=== PATIENT | female | born 1980 | race African-American/Black ===

== ENCOUNTER 2016-10-30 10:17 | Inpatient (IN) ==
[2016-10-30] MEDS ORDERED: METOPROLOL TARTRATE 5 MG/5 ML VIAL IV ONE (10:38)
--- NOTE | 2016-10-30 10:40 | Emergency Department Note ---
Arrival - Arrival Chief Complaint: Chest Pain Stated Complaint: chest pain ED Nursing Triage Note: Midsternal chest pain onset x 3 days with worsening this am - SOB with the pain Mode of Arrival: Ambulatory Limitations: No Limitations Source: Patient, RN Notes Reviewed - History of Present Illness HPI Narrative: Patient is a 35-year-old white female with a known history of lupus. The patient presents today with a 3 day history of chest pain substernal tightness radiating to the left shoulder associated with nausea, shortness of breath, and diaphoresis. Pain is worse with exertion. Patient has had some heart palpitations. She does not smoke. Patient is presently on prednisone, sildenafil, aspirin. She has a history of hypertension. There is no history of diabetes mellitus. Onset (ago): day(s) (3) Consistency: intermittent Severity: moderate Quality: other Date of Last Menstrual Period: hyster Allergies/Adverse Reactions: Allergies Allergy/AdvReac Type Severity Reaction Status Date / Time FABIEN Inhibitors Allergy Severe Swelling Verified 08/12/16 12:14 of Lip/Tongue/Throat Home Medications: Home Medications Medication Instructions Recorded Confirmed Type cloNIDine TAB [Catapres Tab] 0.2 mg PO TID 07/09/14 10/30/16 History Hydroxychloroquine Sulfate 200 mg PO BID 08/12/16 10/30/16 History Losartan Potassium [Cozaar] 100 mg PO DAILY 08/12/16 10/30/16 History amLODIPine [Norvasc] 10 mg PO DAILY 08/12/16 10/30/16 History predniSONE TAB [PredniSONE] 20 mg PO DAILY #30 tablet 08/12/16 10/30/16 Rx Aspirin EC Tab 81 mg PO BID 10/30/16 10/30/16 History Sildenafil Citrate [Viagra] 50 mg PO BID 10/30/16 10/30/16 History Warfarin Sodium 5 mg PO SUTUTHSA 10/30/16 10/30/16 History Warfarin Sodium 7.5 mg PO MOWEFR 10/30/16 10/30/16 History hydroCHLOROthiazide 25 mg PO DAILY 10/30/16 10/30/16 History [Hydrochlorothiazide] Review of System - Review of System 12 point system: reviewed and no additional remarkable complaints except as stated - Review of System Constitutional: Absent: chills, fever Cardiovascular: Present: chest pain, palpitations, dyspnea on exertion Gastrointestinal: Present: nausea Medical,Surgical,& Family Hx - Medical History Cardio: History of: CHF, Hypertension No history of: Valvular Heart Disease Rheumatology: History of;: Systemic Lupus Erythematosus Respiratory: History of: Bronchitis Renal: History of: Renal Failure Genitourinary: History of: Problems (interstitial cystitis) Other: History of: Miscellaneous Medical Problems (lupus; Raynauds) - Surgical History Cardiac Surgeries: Patient Denies: Cardiac Catheterization Neurologic Surgeries: Patient denies: Neurologic Surgery Abdominal Surgeries: Patient denies: Abdominal Surgery Reproductive Surgeries: Surgical HX of;: Hysterectomy - Family History Family History: Reports;: Family Diabetes, Family Heart Disease, Family Hypertension - Social History Smoking Status: Never smoker Frequency of Alcohol Use: None Type of Drug Use: None Exam Vital Signs: Vital Signs Temperature 99.8 F H 10/30/16 10:21 Pulse Rate 132 H 10/30/16 10:21 Respiratory Rate 22 10/30/16 10:21 Blood Pressure 150/103 10/30/16 10:21 O2 Sat by Pulse Oximetry 100 10/30/16 10:21 GENERAL: This is a well-nourished well-developed white female in no apparent distress. VITAL SIGNS: Reviewed HEENT: Head is atraumatic and normocephalic. Pupils are equal round react to light. Extraocular movements are intact. Oropharynx is benign with moist mucous membranes. NECK: Neck is soft and supple without tenderness. There are no masses. There is no lymphadenopathy. LUNGS: Lungs are clear to auscultation. Chest rises symmetrically. There is no chest wall tenderness. CV: Heart is rapid rate regular rhythm without murmurs rubs or gallops. ABDOMEN: Abdomen is soft, nontender to palpation. There are no abdominal abnormal masses palpated. There is no organomegaly. Bowel sounds are present and active. SKIN: Skin is warm and dry. No rash. EXTREMITIES: Patient has full range of motion without tenderness. There is no pedal edema. NEUROLOGIC: Awake alert and oriented 4. Cranial nerves II through XII are grossly intact. Motor is 5 over 5 in all extremities bilaterally. Course - Consultations Consultation #1: Discussed with hospitalist. Patient will be admitted to their service. Time: 12:46 Results - Labs CBC & BMP: 10/30/16 10:39 10/30/16 10:39 Lab Results: I have reviewed the patients labs Labs: Laboratory Tests 10/30/16 10/30/16 10:39 10:39 INR 2.5 Troponin I < 0.015 - EKG EKG results: interpreted by ERMD - Impressions EKG: Sinus tachycardia with a rate of 134, nonspecific ST-T wave changes, normal axis. - Diagnostic Findings Procedure: Chest x-ray: image reviewed by me (Left pleural effusion), CT - chest : report reviewed by me, image reviewed by me (No evidence of pulmonary embolus. Bibasilar atelectasis.) Disposition Clinical Impression: Chest pain, Tachycardia, SLE (systemic lupus erythematosus), Essential hypertension, Chronic anticoagulation Case discussed with: patient Disposition: Still a Patient Condition: Guarded Time of Disposition: 12:44
[2016-10-30] MEDS ORDERED: ONDANSETRON 4 MG/2 ML VIAL IV PRN ×2 (10:42→14:56)
[2016-10-30] MEDS ORDERED: ASPIRIN 325 MG TABLET PO STA (10:42)
[2016-10-30] MEDS ORDERED: MORPHINE 2 MG/1 ML SYRINGE IV PRN ×2 (10:42→14:56)
[2016-10-30] MEDS ORDERED: ENOXAPARIN 100 MG/ML SYRINGE SUBCUT STA (10:42)
[2016-10-30] MEDS: METOPROLOL TARTRATE 5 MG/5 ML VIAL IV SCH ×2 (10:43→11:10)
--- NOTE | 2016-10-30 10:46 | EKG Report ---
Stationary ECG Study [facility] ER Test Date: 10/30/2016 10:23:28 AM Pat Name: LEATHA BARR Department: Room: Gender: F Psychopaedic Nurse: Anita Batista : 1980 Requested by: Eduardo Quintanilla Order Number: [id number] Reading MD: NATALIE MELISSA Intervals [place] Rate: 134 P: 37 NE: 143 QRS: 31 QRSD: 84 T: 65 QT: 367 QTc: 446 Interpretive Statements SINUS TACHYCARDIA Electronically Signed On 10-30-16 12:37:31 CDT by NATALIE MELISSA [email or web address]
[2016-10-30 10:53] LABS: Basophils % 0.1 % (0.0-0.8); Eosinophils % 0.1 % (0.00-10.9); Hematocrit 39.5 VOL% (35.7-47.0); Hemoglobin 12.7 GM/DL (12.0-16.0); Immature Granulocytes % 0.4 %; Immature Granulocytes Absolute 0.03 #; Lymphocytes % 14.2 % (21.3-54.2); Mean Corpuscular HGB Conc 32.2 GM/DL (32-36); Mean Corpuscular Hemoglobin 26 PG (27-34); Mean Corpuscular Volume 81.1 FL (87-102); Mean Platelet Volume 11.3 FL (9.6-12.0); Monocytes # 0.5 10*3/uL (0.11-0.8); Monocytes % 7.3 % (1.7-12.7); Neutrophils # 5.5 10*3/uL (1.4-7.4); Neutrophils % 77.9 % (38.7-73.9); Platelet Count 223 T/CUMM (130-400); Red Blood Count 4.87 MC/CUMM (3.8-5.5); Red Cell Distribution Width 14.4 % (9.3-17.3); White Blood Count 7.1 T/CUMM (4-12)
[2016-10-30] MEDS ORDERED: methylPREDNISolone SOD SUC 125 MG/2 ML VIAL IV STA (10:55)
--- NOTE | 2016-10-30 11:04 | XRay Report ---
XR chest 1V portable Indication: Chest pain Comparison: 12 Aug 2016 Findings: The heart and mediastinum are stable in size and configuration. The pulmonary vascularity is normal in caliber. No lung infiltrates, effusions, pneumothorax or other abnormality is demonstrated. Impression: No acute cardiopulmonary disease. PROCEDURE INTERPRETED AT [facility] DEPARTMENT OF RADIOLOGY Final Report Signed by: Dr. Mitesh Hawkins
[2016-10-30 11:05] LABS: INR 2.5; PT Patient Result 28.6 SECS; Partial Thromboplastin Time 40.6 SECS (0-40)
[2016-10-30] MEDS ORDERED: methylPREDNISolone SOD SUC 125 MG/2 ML VIAL ONE (11:08)
[2016-10-30] MEDS ORDERED: ONDANSETRON 4 MG/2 ML VIAL ONE (11:08)
[2016-10-30] MEDS ORDERED: MORPHINE 2 MG/1 ML SYRINGE ONE (11:08)
[2016-10-30] MEDS ORDERED: ENOXAPARIN 80 MG/0.8 ML SYRINGE SUBCUT ONE (11:08)
[2016-10-30 11:30] LABS: Alanine Aminotransferase 14 U/L (13-56); Albumin 2.4 G/DL (3.4-5.0); Alkaline Phosphatase 42 U/L (45-117); Aspartate Amino Transferase 18 U/L (0-37); Bilirubin,Total < 0.39 MG/DL (0.2-1.0); Blood Urea Nitrogen 20 MG/DL (7-18); Calcium 8.7 MG/DL (8.5-10.1); Glucose 88 MG/DL (74-106); Osmolality,Calculated 287.8 MOS/KG (273-304); Potassium 3.4 MMOL/L (3.5-5.1); Sodium 144 MMOL/L (136-145); Total Protein 6.7 G/DL (6.4-8.3)
--- NOTE | 2016-10-30 12:29 | CT Report ---
CT chest PE study Indication: Shortness of breath. Chest pain. Comparison: CT chest July 09, 2014. Technique: CT of the chest was performed following the administration of intravenous contrast. In addition to multiple contiguous axial source images obtained from the thoracic inlet through the upper abdomen, coronal and sagittal MPR series were performed as were thin slab MIP reconstructions in the coronal and sagittal plane. The CT examination was performed using one or more of the following dose reduction techniques: Automatic exposure control, adjustment of the mA and kV according to patient size, or iterative reconstruction techniques. Findings: Lungs: Bilaterally, the lungs demonstrate peripherally located areas of honeycombing are more prevalent within the anterior aspect of each upper lobe. These areas of suggested fibrotic change have increased in severity since the comparison study. Additional areas of honeycombing are noted within the posterior sulcus of the right lower lobe and left lower lobe with some subsegmental bronchiectasis additionally suggested bilaterally. The changes within the lower lobes also appear to have worsened since the comparison study. Trace bilateral pleural effusions are noted. Aorta: No significant abnormality of the aorta is demonstrated. Pulmonary artery: Pulmonary artery is normal in size and demonstrates no significant abnormality. Lymph nodes: Enlarged axillary lymph nodes measuring 11 and 12 mm of present within the left axilla with additional minimally enlarged lymph nodes measuring up to 10-11 mm within the right axilla. No mediastinal or hilar adenopathy is present. Heart: Moderate cardiomegaly is present. The degree of cardiomegaly has minimally worsened since comparison study. Thickened appearance of the left ventricle suggests left ventricular hypertrophy. Esophagus: A small hiatal hernia is present. The esophagus is otherwise unremarkable. Osseous structures: Unusual pattern of mineralization is demonstrated involving the rib cage of the mid upper chest. This appearance has changed little since comparison study. Exact etiology is uncertain. No acute osseous findings are demonstrated. Soft tissues and muscular: Soft tissues and musculature of the chest wall as well as imaged lower neck demonstrate no acute findings. Upper abdomen: No acute findings are noted within the upper abdomen. Impression: 1. Interval progression of fibrotic changes within the lungs with minimal bronchiectasis involving subsegmental bronchi additionally suggested within the lower lobes. Differential considerations are broad and include interstitial lung disease, amiodarone therapy or other drug toxicity, pulmonary fibrosis, usual interstitial pneumonia, correlation with known medical history is recommended. 2. No evidence of PE. 3. Interval worsening of cardiomegaly is suggested. 10/30/2016 12:21 PM PROCEDURE INTERPRETED AT [facility] DEPARTMENT OF RADIOLOGY Final Report Signed by: Dr. Solomon Smith
--- NOTE | 2016-10-30 14:10 | EKG Report ---
Stationary ECG Study [facility] ER Test Date: 10/30/2016 2:08:48 PM Pat Name: LEATHA BARR Department: Room: Gender: F Ict Sales Assistant: : 1980 Requested by: Eduardo Quintanilla Order Number: [id number] Reading MD: NATALIE MELISSA Intervals [place] Rate: 102 P: 4 DE: 176 QRS: 88 QRSD: 89 T: -8 QT: 316 QTc: 374 Interpretive Statements SINUS TACHYCARDIA LOW QRS VOLTAGE IN PRECORDIAL LEADS Electronically Signed On 10-30-16 20:19:50 CDT by NATALIE MELISSA [email or web address]
[2016-10-30] MEDS ORDERED: ACETAMINOPHEN 325 MG TABLET PO PRN (14:56)
[2016-10-30] MEDS ORDERED: POTASSIUM CHLORIDE 20 MEQ TABLET PO ONE (15:01)
[2016-10-30 15:16] LABS: Risk Ratio 4.98; VLDL CHOLESTEROL 30.6 MG/DL
--- NOTE | 2016-10-30 15:28 | Hospitalist History & Physical ---
Assessment and Plan - Time spent with patient Time spent with patient: Greater than 30 minutes (1) Chest pain Status: Acute Assessment and plan: Will admit to for further evaluation of chest pain. Will consult cardiology. Will repeat labs troponin and a.m. labs. Will resume home Coumadin, Norvasc, Clonidine, Prednisone, losartan, sildenafil and ASA. Will discuss with Dr Gonsales for further recommendations. Current Visit: Yes (2) SLE (systemic lupus erythematosus) Status: Acute Assessment and plan: resume home medications. Current Visit: Yes (3) Hypokalemia Status: Acute Assessment and plan: replace K with protocol. Current Visit: Yes History of Present Illness Chief complaint: chest pain History of present illness: Ms. Lerma is a 35 year old black female w/ PMHx of Lupus, CHF, HTN, GI interstitial cystitis; presented to the ED for c/o crushing pain that radiated to left shoulder today with associated shortness of breath, nausea, and sweaty that was intense for 5 minutes and then became a constant dull pain with tightness in the chest. She reports having chest pain on and off for 3 days but today it was worse. She reports that she was diagnosed with Lupus in 2006, and at that time she required dialysis for about a year but no longer requires. She denies fever and chills. In ED: TEMP 99.8 BP and HR were elevated she was given Metoprolol and they improved, At time of exam HR was 100 and BP 138/92. LABS: INR 2.5, PT 28.6, PTT 40.6, K 3.4, BUN 20 and creatinine 1.20, alkaline phos 42, albumin 2.4, globulin 4.3, triglycerides 153, cholesterol 224, TROPONIN <0.015 and REPEAT troponin 0.016. EKG: sinus tachy, rate 134, nonspecific ST-T wave changes, normal axis. CXR: No acute cardiopulmonary disease. CHEST CT: Impression: 1. Interval progression of fibrotic changes within the lungs with minimal bronchiectasis involving subsegmental bronchi additionally suggested within the lower lobes. Differential considerations are broad and include interstitial lung disease, amiodarone therapy or other drug toxicity, pulmonary fibrosis, usual interstitial pneumonia, correlation with known medical history is recommended. 2. No evidence of PE. 3. Interval worsening of cardiomegaly is suggested. Surgical hx: hysterectomy and x3. Primary care Physician: SIDRA in [place]. ALLERGIC to FABIEN Inhibitors. After discussion with Dr Muhammad in the ED and Dr Gonsales with Hospital Medicine it was agreed to admit the patient for further evaluation. Home medications will be reviewed and reconciliation to follow. Home Medications Medication Instructions Recorded Confirmed Type cloNIDine TAB [Catapres Tab] 0.2 mg PO TID 07/09/14 10/30/16 History Hydroxychloroquine Sulfate 200 mg PO BID 08/12/16 10/30/16 History Losartan Potassium [Cozaar] 100 mg PO DAILY 08/12/16 10/30/16 History amLODIPine [Norvasc] 10 mg PO DAILY 08/12/16 10/30/16 History predniSONE TAB [PredniSONE] 20 mg PO DAILY #30 tablet 08/12/16 10/30/16 Rx Aspirin EC Tab 81 mg PO BID 10/30/16 10/30/16 History Sildenafil Citrate [Viagra] 50 mg PO BID 10/30/16 10/30/16 History Warfarin Sodium 5 mg PO SUTUTHSA 10/30/16 10/30/16 History Warfarin Sodium 7.5 mg PO MOWEFR 10/30/16 10/30/16 History hydroCHLOROthiazide 25 mg PO DAILY 10/30/16 10/30/16 History [Hydrochlorothiazide] Allergies Allergy/AdvReac Type Severity Reaction Status Date / Time FABIEN Inhibitors Allergy Severe Swelling Verified 08/12/16 12:14 of Lip/Tongue/Throat Medical,Surgical,& Family Hx - Medical History Cardio: History of: CHF, Hypertension No history of: Valvular Heart Disease Rheumatology: History of;: Rheumatoid Arthritis, Systemic Lupus Erythematosus Respiratory: History of: Bronchitis Renal: History of: Renal Failure (was on Dialysis for 1 year in 2006 but no longer requires dialysis now) Genitourinary: History of: Problems (interstitial cystitis) Other: History of: Miscellaneous Medical Problems (lupus; Raynauds) - Surgical History Cardiac Surgeries: Patient Denies: Cardiac Catheterization Neurologic Surgeries: Patient denies: Neurologic Surgery Abdominal Surgeries: Patient denies: Abdominal Surgery Reproductive Surgeries: Surgical HX of;: Hysterectomy - Family History Family History: Reports;: Family Diabetes, Family Heart Disease, Family Hypertension - Social History Smoking Status: Never smoker Frequency of Alcohol Use: None Type of Drug Use: None Lives With:: Children (lives with her 3 children) Functional capacity: independent ambulation Review of systems: ROS completed and pertinent positives and negatives in the HPI. Exam - Constitutional Vitals: Period Temp Pulse Resp BP Sys/Mckinney Pulse Ox Last 24 Hr 99.8 F-99.8 F 95-136 12-28 129-164/78-119 100-100 General appearance: normal weight, no acute distress - Head Head exam: Present: normal inspection - Eye Eye exam: Present: EOMI Pupils: Present: FLAKITO - Neck Neck exam: Present: normal inspection. Absent: thyromegaly - Respiratory Respiratory exam: Present: clear to auscultation bilaterally. Absent: stridor, wheezes - Cardiovascular Cardiovascular exam: Present: regular rate and rhythm, tachycardia (98-104) - GI/Abdominal GI/Abdominal exam: Present: normal bowel sounds, soft. Absent: tenderness, rebound - Extremities Exam Extremities exam: Present: normal inspection, full ROM. Absent: edema - Neurological Exam Neurological exam: Present: alert, oriented X3 - Psychiatric Psychiatric exam: Present: normal affect, normal mood - Skin Skin exam: Present: normal color, warm, dry Results - Labs CBC & BMP: 10/30/16 10:39 10/30/16 10:39 Lab Results: I have reviewed the past 24 hour labs Labs: INR 2.5; PT 28.6; PTT 40.6 Troponin <0.015 and repeat troponin 0.016 Albumin 2.4 Globuilin 4.3 Triglycerides 153 Cholesterol 224 LDL 139.0 HDL 45 Lipase 258.0 - Diagnostic Findings Procedure: Chest x-ray: report reviewed by me (no acute cardiopulmonary disease) , CT - chest: report reviewed by me (Interval progression of fibrotic changes within the lungs with minimal bronchial stasis involving subsegmental bronchi additionally suggested within the lower lobe, differential considerations are broad and include interstitial lung disease, amiodarone therapy or other drug toxicity, pulmonary fibrosis, usual interstitial pneumonia, correlation with no medical history is recommended, no evidence of PE, interval worsening of cardiomegaly is suggested) Quality Measures - VTE Contraindication to Pharmacological VTE Prophylaxis: Already on Theraputic Agent , No Prophylaxis Needed
[2016-10-30] MEDS ORDERED: WARFARIN 5 MG TABLET PO SCH (18:00)
[2016-10-30] MEDS: PANTOPRAZOLE 40 MG TABLET PO SCH (18:08)
--- NOTE | 2016-10-30 19:27 | ECHO Report ---
Brian Lerma Exam Date: 10/30/2016 15:35 Referring Physician: Technologist: Alanna Polanco RDCS Age: 35 Ht (in): 62 Wt (lb): 166 Gender: F Exam Location: [facility] Echo Indications: Chest pain, unspecified, SLE, Hypokalemia, Essential (primary) hypertension, Shortness of breath BP: 131 / 89 HR: 99 Rhythm: Sinus Technical Quality: Fair IMPRESSIONS 1. Left ventricle is normal size and systolic function with mild concentric left ventricular hypertrophy. Ejection fraction is 60+%. 2. Other cardiac chambers are normal size. 3. Valvular structures are overall unremarkable and normal. 4. There is no evidence of elevated right-sided pressures of any significance. 5. Overall this is a fairly unremarkable echocardiogram. MEASUREMENTS (Male / Female) Normal Values 2D ECHO LV Diastolic Diameter PLAX 3.9 cm 4.2 - 5.9 / 3.9 - 5.3 cm LV Systolic Diameter PLAX 2.7 cm LV Fractional Shortening PLAX 31.1 % IVS Diastolic Thickness 1.2 cm 0.6 - 1.0 / 0.6 - 0.9 cm LVPW Diastolic Thickness 1.2 cm 0.6 - 1.0 / 0.6 - 0.9 cm RV Internal Dim ED PLAX 2.6 cm Aortic Root Diameter 2.8 cm LA Systolic Diameter LX 3.5 cm 3.0 - 4.0 / 2.7 - 3.8 cm DOPPLER TR Peak Velocity 259.0 cm/s TR Peak Gradient 26.8 mmHg FINDINGS Left Ventricle Normal left ventricular cavity size. Mild left ventricular hypertrophy. Left ventricular ejection fraction is estimated at 60 %. Right Ventricle The right ventricle is normal in size and function. Right Atrium The right atrium is normal in size. Left Atrium The left atrium is normal in size. Mitral Valve Morphologically normal mitral valve. Trace mitral valve regurgitation. Aortic Valve Morphologically normal aortic valve without significant sclerosis or stenosis. There is no aortic regurgitation. Tricuspid Valve Morphologically normal tricuspid valve. Trace to mild tricuspid valve regurgitation. Tricuspid regurgitation velocities suggest a PAP of 37 mmHg. Pulmonic Valve Morphologically normal pulmonic valve without significant stenosis. There is no pulmonic regurgitation. Pericardium Normal pericardium without effusion. Aorta Normal ascending aorta dimension. Adolfo Holly MD (Electronically Signed) Final Date: 30 October 2016 19:26
[2016-10-30] MEDS ORDERED: SILDENAFIL CITRATE 50 MG PO SCH (21:00)
[2016-10-30] MEDS: HYDROXYCHLOROQUINE 200 MG TABLET PO SCH (21:45)
[2016-10-30] MEDS: ASPIRIN EC 81 MG TABLET PO SCH (21:45)
[2016-10-30] MEDS: CARVEDILOL 12.5 MG TABLET PO SCH (21:45)
[2016-10-31 04:43] LABS: Hematocrit 36.2 VOL% (35.7-47.0); Hemoglobin 11.7 GM/DL (12.0-16.0); Immature Granulocytes % 0.6 %; Immature Granulocytes Absolute 0.02 #; Lymphocytes # 0.5 10*3/uL (1.4-4.0); Lymphocytes % 13.7 % (21.3-54.2); Mean Corpuscular HGB Conc 32.3 GM/DL (32-36); Mean Corpuscular Hemoglobin 26 PG (27-34); Mean Corpuscular Volume 80.6 FL (87-102); Mean Platelet Volume 11.9 FL (9.6-12.0); Monocytes # 0.3 10*3/uL (0.11-0.8); Monocytes % 7.6 % (1.7-12.7); Neutrophils # 2.7 10*3/uL (1.4-7.4); Neutrophils % 78.1 % (38.7-73.9); Platelet Count 203 T/CUMM (130-400); Red Blood Count 4.49 MC/CUMM (3.8-5.5); Red Cell Distribution Width 14.3 % (9.3-17.3); White Blood Count 3.4 T/CUMM (4-12)
[2016-10-31 05:23] LABS: INR 2.4
[2016-10-31 05:39] LABS: PT Patient Result 26.8 SECS
[2016-10-31 06:15] LABS: Calcium 8.7 MG/DL (8.5-10.1); Osmolality,Calculated 289.1 MOS/KG (273-304); Potassium 4.4 MMOL/L (3.5-5.1)
--- NOTE | 2016-10-31 08:25 | Hospitalist Progress Note ---
Assessment and Plan - Time spent with patient Time spent with patient: Less than 30 minutes (1) Chest pain Status: Acute Assessment and plan: 10/31/16 No chest pain throughout the night. Reported chest tightness and SOB with Shower this morning but resolved with rest. Troponin series is negative. Triglycerides 153, Cholesterol 224, LDL 139.0, HDL 45. Cardiology is consulted and greatly appreciate their assistance with treatment and further recommendations. Will repeat a.m. labs. Will discuss with Dr Gonsales for further recommendations. 10/30/16 Will admit to for further evaluation of chest pain. Will consult cardiology. Will repeat labs troponin and a.m. labs. Will resume home Coumadin, Norvasc,Clonidine, Prednisone, losartan, sildenafil and ASA. Will discuss with Dr Gonsales for further recommendations. Current Visit: Yes (2) SLE (systemic lupus erythematosus) Status: Acute Assessment and plan: 10/31/16 continue home medication, continue to monitor. Fingers feel better this a.m. per patient report, Warm with good capillary refill. 10/30/16 resume home medications. Current Visit: Yes (3) Hypokalemia Status: Acute Assessment and plan: replace K with protocol. Current Visit: Yes Hospitalist: Subjective Interval history: 10/31/16 - Patient seen and Chart reviewed. Patient reports a good night, no chest pain or shortness of breath throughout the night. Except she does report an episode of "night sweats" last night and that her pillow was soaked, she denied feeling chilled. She also verbalized that this morning when she got up to the shower the chest tightness returned and she became a "little" short of breath, but with rest it resolved. She is pain free at time of exam. She denies any noted palpitations or dizziness. She denies any nausea, vomiting, fever or chills. ECHO: 10/30/16 IMPRESSIONS 1. Left ventricle is normal size and systolic function with mild concentric left ventricular hypertrophy. Ejection fraction is 60+%. 2. Other cardiac chambers are normal size. 3. Valvular structures are overall unremarkable and normal. 4. There is no evidence of elevated right-sided pressures of any significance. 5. Overall this is a fairly unremarkable echocardiogram. Exam - Constitutional Vitals: Period Temp Pulse Resp BP Sys/Mckinney Pulse Ox Last 24 Hr 97.5 F-99.8 F 65-136 12-28 113-183/78-119 99-100 General appearance: normal weight - Head Head exam: Present: normal inspection - Eye Eye exam: Present: EOMI Pupils: Present: FLAKITO - Neck Neck exam: Present: normal inspection - Respiratory Respiratory exam: Present: clear to auscultation bilaterally. Absent: stridor, wheezes - Cardiovascular Cardiovascular exam: Present: regular rate and rhythm - GI/Abdominal GI/Abdominal exam: Present: normal bowel sounds, soft. Absent: tenderness, rebound - Extremities Exam Extremities exam: Present: normal inspection, full ROM. Absent: edema - Neurological Exam Neurological exam: Present: alert, oriented X3 - Psychiatric Psychiatric exam: Present: normal affect, normal mood - Skin Skin exam: Present: normal color, warm, dry Results - Labs CBC & BMP: 10/31/16 03:29 10/31/16 03:29 Lab Results: I have reviewed the past 24 hour labs Labs: TROPONIN remains negative 10/30/16 triglycerides 153 cholesterol 224 LDL 139.0 HDL 45 Quality Measures - VTE Contraindication to Pharmacological VTE Prophylaxis: Already on Theraputic Agent , No Prophylaxis Needed
[2016-10-31] MEDS ORDERED: amLODIPine 10 MG TABLET PO SCH (09:00)
--- NOTE | 2016-10-31 09:09 | Cardiology Consult Note ---
Assessment and Plan - Time spent with patient Time spent with patient: Greater than 30 minutes (due to assessment, plan, and documentation) (1) Unstable angina pectoris Status: Acute Assessment and plan: See plan of care listed below. Current Visit: No (2) SLE (systemic lupus erythematosus) Status: Chronic Assessment and plan: See plan of care listed below. Current Visit: Yes (3) Essential hypertension Status: Chronic Assessment and plan: See plan of care listed below. Current Visit: Yes (4) History of CHF (congestive heart failure) Status: Resolved Assessment and plan: See plan of care listed below. Current Visit: Yes (5) Allergy to FABIEN inhibitors Status: Chronic Assessment and plan: See plan of care listed below. Current Visit: Yes (6) Chronic anticoagulation Status: Chronic Assessment and plan: See plan of care listed below. Current Visit: Yes History of Present Illness - Data of Consult Patient: new to practice Consult date: 10/30/16 Requesting Physician: Inez Gonsales - Consult Narrative Reason for consult: chest pain History of present illness: Child Support Case Officer: Jam ortega [facility] PCP: SIDRA Ms. Lerma is a 35 year old female with a history of systemic lupus erythematosus, congestive heart failure, interstitial lung disease, and hypertension. Risk factors are significant for: sedentary lifestyle, overweight , hypertension. She is allergic to FABIEN inhibitors and has had an allergic reaction with angioedema in the past. It should also be noted that she has a history of right radial artery thinning and was placed on Coumadin and sildenafil to help open up her blood vessels. 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 Ms. Womack presented to the emergency room yesterday with complaints of chest pain. She states for the past several days she has had progressive dyspnea and chest pressure. She states that yesterday she had an episode of debilitating chest pain lasted for approximately 10 minutes before going away. She describes it as a squeezing, crushing pressure. It is located in the mid to left sternal region and yesterday radiated to her left shoulder. Is also associated with shortness of breath, nausea, and diaphoresis. She states that he recently she has been unable to clean her house due to dyspnea on exertion and yesterday it took her about an hour to get 10 bags of groceries upstairs to her second floor apartment. She states this morning she did have some pressure and shortness of breath with her shower which has now eased to a mild dull pressure. Her pain seems to be exacerbated with exertion and improved with rest. She has not been given any nitrates due to being on sildenafil she has also had recent symptoms of palpitations and bilateral lower extremity edema. Upon arrival to the emergency room, she has had negative cardiac biomarkers but EKG shows sinus rhythm with inferior T-wave inversion. There is 2.4. Creatinine is 1.0. Lipid panel revealed triglycerides 153, cholesterol 224, LDL 139, HDL 45. After discussing with Dr. Carvajal, given her history, abnormal EKG, and continued pain, it is felt to be best served by further evaluation with cardiac catheterization. Will discuss with Dr. Holly and set her up for a left heart catheterization today. ASSESSMENT/PLAN: 1. UNSTABLE ANGINA - She has had negative troponins but EKG is suspicious for ischemia. Differential diagnosis could include: Myocarditis, pericarditis. Her symptoms sound suspicious for ACS. After discussing with Dr. Holly and Dr. Carvajal, we will proceed with left heart catheterization for further evaluation of her coronary anatomy. 2. SYSTEMIC LUPUS ERYTHEMATOSUS - [facility] [place] She is on Plaquenil. Medical therapy will be limited with her complicated medical status and medication interactions. 3. HYPERTENSION - Currently mildly elevated. We will continue to monitor and adjust accordingly. Will avoid beta blockers in an attempt to minimize vasospasms. Will further medical therapy with calcium channel blockers. 4. CONGESTIVE HEART FAILURE - Echocardiogram revealed no systolic or diastolic dysfunction, EF 60+%, valvlar structures overall unremarkable, no evidence of elevated right sided pressures. 5. ALLERGY TO FABIEN INHIBITORS - She is allergic to FABIEN inhibitors and has had an allergic reaction with angioedema in the past. 6. CHRONIC ANTICOAGULATION - INR 2.4. Will continue to monitor. CC: Inez Gonsales MD - Home Medications and Allergies Home Medications: Home Medications Medication Instructions Recorded Confirmed Type cloNIDine TAB [Catapres Tab] 0.2 mg PO TID 07/09/14 10/31/16 History Hydroxychloroquine Sulfate 200 mg PO BID 08/12/16 10/31/16 History Losartan Potassium [Cozaar] 100 mg PO DAILY 08/12/16 10/31/16 History amLODIPine [Norvasc] 10 mg PO DAILY 08/12/16 10/31/16 History predniSONE TAB [PredniSONE] 20 mg PO DAILY #30 tablet 08/12/16 10/31/16 Rx Aspirin EC Tab 81 mg PO BID 10/30/16 10/31/16 History Sildenafil Citrate [Viagra] 50 mg PO BID 10/30/16 10/30/16 History Warfarin Sodium 5 mg PO SUTUTHSA 10/30/16 10/30/16 History Warfarin Sodium 7.5 mg PO MOWEFR 10/30/16 10/30/16 History hydroCHLOROthiazide 25 mg PO DAILY 10/30/16 10/31/16 History [Hydrochlorothiazide] Allergies/Adverse Reactions: Allergies Allergy/AdvReac Type Severity Reaction Status Date / Time FABIEN Inhibitors Allergy Severe Swelling Verified 08/12/16 12:14 of Lip/Tongue/Throat 12 point system: reviewed and no additional remarkable complaints except as stated Medical,Surgical,& Family Hx - Medical History Cardio: History of: CHF, Hypertension No history of: Valvular Heart Disease Rheumatology: History of;: Rheumatoid Arthritis, Systemic Lupus Erythematosus Respiratory: History of: Bronchitis Renal: History of: Renal Failure (was on Dialysis for 1 year in 2006 but no longer requires dialysis now) Genitourinary: History of: Problems (interstitial cystitis) Other: History of: Miscellaneous Medical Problems (lupus; Raynauds) - Surgical History Cardiac Surgeries: Patient Denies: Cardiac Catheterization Neurologic Surgeries: Patient denies: Neurologic Surgery Abdominal Surgeries: Patient denies: Abdominal Surgery Reproductive Surgeries: Surgical HX of;: Hysterectomy - Family History Family History: Reports;: Family Diabetes, Family Heart Disease, Family Hypertension - Social History Smoking Status: Never smoker Frequency of Alcohol Use: None Type of Drug Use: None Physical Examination Vital Signs Temp Pulse Resp BP Pulse Ox 99.8 F H 132 H 22 150/103 100 10/30/16 10:21 10/30/16 10:21 10/30/16 10:21 10/30/16 10:21 10/30/16 10:21 Exam: General appearance: Pleasant and cooperative. Overweight, no acute distress. Head exam: Present: normal inspection, normocephalic, atraumatic. Absent: hematoma, laceration Eye exam: Present: EOMI. Absent: conjunctival injection, nystagmus, periorbital swelling, scleral icterus, laceration to eyelids Pupils: Present: PERRL. Absent: constricted, dilated, fixed, irregular, unequal ENT exam: Present: normal exam, normal external ear exam Neck exam: Present: normal inspection. Absent: lymphadenopathy, meningismus, tenderness, thyromegaly Respiratory exam: Present: clear to auscultation bilaterally. Absent: accessory muscle use, chest wall tenderness, rales, rhonchi, wheezing. Cardiovascular exam: Present: regular rate and rhythm. Absent: JVD, rubs, murmur GI/Abdominal exam: Present: normal bowel sounds, soft. Absent: distended, firm , guarding, hernia, mass, tenderness, rebound. Extremities exam: Present: normal inspection, normal capillary refill. Upper extremity pulses 2+. Lower extremity pulses 2+. Absent: calf tenderness, edema Musculoskeletal: Present: No Fluid Collection, No Pain, Normal Range of Motion Back exam: Present: normal inspection. Absent: muscle spasm, vertebral tenderness Neurological exam: Present: alert, oriented X3, grossly intact without resting or essential tremor Psychiatric exam: Present: normal affect, normal mood Skin exam: Present: normal color, warm, dry, intact. Absent: cyanosis, diaphoretic, rash, urticaria Result/EKG - Labs CBC & BMP: 10/31/16 03:29 10/31/16 03:29 Lab Results: I have reviewed the past 24 hour labs Labs: Laboratory Results - last 24 hr 10/30/16 10/30/16 10/30/16 10:39 10:39 10:39 WBC 7.1 RBC 4.87 Hgb 12.7 Hct 39.5 MCV 81.1 L MCH 26 L MCHC 32.2 RDW 14.4 Plt Count 223 MPV 11.3 Neut % (Auto) 77.9 H Lymph % (Auto) 14.2 L [place] % (Auto) 7.3 Eos % (Auto) 0.1 Baso % (Auto) 0.1 Neut # (Auto) 5.5 Lymph # (Auto) 1.0 L [place] # (Auto) 0.5 Eos # (Auto) 0.0 Baso # (Auto) 0.0 Immature Gran % 0.4 Nucleated RBC % 0.0 Immature Gran # 0.03 Nucleated RBCs # 0.00 Immature Plt Fraction 0.0 INR 2.5 PT Patient/Control Mix 28.6 D Circ Anticoag PTT 40.6 H Sodium 144 Potassium 3.4 L Chloride 111 H Carbon Dioxide 26 Anion Gap 10.4 BUN 20 H Creatinine 1.20 H GFR Calculation 68 BUN/Creatinine Ratio 16.00 Glucose 88 Hemoglobin A1c Calculated Osmolality 287.8 Calcium 8.7 Total Bilirubin < 0.39 AST 18 ALT 14 Alkaline Phosphatase 42 L Troponin I Total Protein 6.7 Albumin 2.4 L Globulin 4.3 H Albumin/Globulin Ratio 0.5 L Triglycerides Cholesterol LDL Cholesterol VLDL Cholesterol HDL Cholesterol Heart Disease Risk Ratio Lipase 10/30/16 10/30/16 10/30/16 10:39 10:39 10:39 WBC RBC Hgb Hct MCV MCH MCHC RDW Plt Count MPV Neut % (Auto) Lymph % (Auto) [place] % (Auto) Eos % (Auto) Baso % (Auto) Neut # (Auto) Lymph # (Auto) [place] # (Auto) Eos # (Auto) Baso # (Auto) Immature Gran % Nucleated RBC % Immature Gran # Nucleated RBCs # Immature Plt Fraction INR PT Patient/Control Mix Circ Anticoag PTT Sodium Potassium Chloride Carbon Dioxide Anion Gap BUN Creatinine GFR Calculation BUN/Creatinine Ratio Glucose Hemoglobin A1c 5.6 Calculated Osmolality Calcium Total Bilirubin AST ALT Alkaline Phosphatase Troponin I < 0.015 Total Protein Albumin Globulin Albumin/Globulin Ratio Triglycerides Cholesterol LDL Cholesterol VLDL Cholesterol HDL Cholesterol Heart Disease Risk Ratio Lipase 258.0 10/30/16 10/30/16 10/30/16 10:39 14:17 18:32 WBC RBC Hgb Hct MCV MCH MCHC RDW Plt Count MPV Neut % (Auto) Lymph % (Auto) [place] % (Auto) Eos % (Auto) Baso % (Auto) Neut # (Auto) Lymph # (Auto) [place] # (Auto) Eos # (Auto) Baso # (Auto) Immature Gran % Nucleated RBC % Immature Gran # Nucleated RBCs # Immature Plt Fraction INR PT Patient/Control Mix Circ Anticoag PTT Sodium Potassium Chloride Carbon Dioxide Anion Gap BUN Creatinine GFR Calculation BUN/Creatinine Ratio Glucose Hemoglobin A1c Calculated Osmolality Calcium Total Bilirubin AST ALT Alkaline Phosphatase Troponin I 0.016 < 0.015 Total Protein Albumin Globulin Albumin/Globulin Ratio Triglycerides 153 H Cholesterol 224 H LDL Cholesterol 139.0 VLDL Cholesterol 30.6 HDL Cholesterol 45 Heart Disease Risk Ratio 4.98 Lipase 10/30/16 10/31/16 10/31/16 22:32 03:29 03:29 WBC 3.4 L D RBC 4.49 Hgb 11.7 L Hct 36.2 MCV 80.6 L MCH 26 L MCHC 32.3 RDW 14.3 Plt Count 203 MPV 11.9 Neut % (Auto) 78.1 H Lymph % (Auto) 13.7 L [place] % (Auto) 7.6 Eos % (Auto) 0.0 Baso % (Auto) 0.0 Neut # (Auto) 2.7 Lymph # (Auto) 0.5 L [place] # (Auto) 0.3 Eos # (Auto) 0.0 Baso # (Auto) 0.0 Immature Gran % 0.6 Nucleated RBC % 0.0 Immature Gran # 0.02 Nucleated RBCs # 0.00 Immature Plt Fraction 0.0 INR PT Patient/Control Mix Circ Anticoag PTT Sodium 142 Potassium 4.4 Chloride 110 H Carbon Dioxide 25 Anion Gap 11.4 BUN 27 H Creatinine 1.00 GFR Calculation 84 BUN/Creatinine Ratio 27.00 H Glucose 142 H Hemoglobin A1c Calculated Osmolality 289.1 Calcium 8.7 Total Bilirubin AST ALT Alkaline Phosphatase Troponin I < 0.015 Total Protein Albumin Globulin Albumin/Globulin Ratio Triglycerides Cholesterol LDL Cholesterol VLDL Cholesterol HDL Cholesterol Heart Disease Risk Ratio Lipase 10/31/16 10/31/16 03:29 03:29 WBC RBC Hgb Hct MCV MCH MCHC RDW Plt Count MPV Neut % (Auto) Lymph % (Auto) [place] % (Auto) Eos % (Auto) Baso % (Auto) Neut # (Auto) Lymph # (Auto) [place] # (Auto) Eos # (Auto) Baso # (Auto) Immature Gran % Nucleated RBC % Immature Gran # Nucleated RBCs # Immature Plt Fraction INR 2.4 PT Patient/Control Mix 26.8 Circ Anticoag PTT Sodium Potassium Chloride Carbon Dioxide Anion Gap BUN Creatinine GFR Calculation BUN/Creatinine Ratio Glucose Hemoglobin A1c Calculated Osmolality Calcium Total Bilirubin AST ALT Alkaline Phosphatase Troponin I < 0.015 Total Protein Albumin Globulin Albumin/Globulin Ratio Triglycerides Cholesterol LDL Cholesterol VLDL Cholesterol HDL Cholesterol Heart Disease Risk Ratio Lipase - EKG EKG results: interpreted by me, sinus rhythm (with inferior T-wave inversions) Quality Measures - VTE Contraindication to Pharmacological VTE Prophylaxis: Already on Theraputic Agent , No Prophylaxis Needed
[2016-10-31] MEDS ORDERED: MAGNESIUM SULF RIDER 2 GM in PREMIX 1 EACH IV PRN (09:41)
[2016-10-31] MEDS ORDERED: diphenhydrAMINE CAP 25 MG CAPSULE PO ONE (09:41)
[2016-10-31] MEDS ORDERED: POTASSIUM CHLORIDE RIDER 10 MEQ in PREMIX 1 EACH IV PRN (09:41)
[2016-10-31] MEDS: ASPIRIN EC 81 MG TABLET PO SCH ×2 (09:44→21:48)
[2016-10-31] MEDS: PANTOPRAZOLE 40 MG TABLET PO SCH (09:44)
[2016-10-31] MEDS: LOSARTAN 50 MG TABLET PO SCH (09:44)
[2016-10-31] MEDS: hydroCHLOROthiazide 25 MG TABLET PO SCH (09:44)
[2016-10-31] MEDS: predniSONE 20 MG TABLET PO SCH (09:45)
[2016-10-31] MEDS: HYDROXYCHLOROQUINE 200 MG TABLET PO SCH ×2 (09:45→21:49)
[2016-10-31] MEDS ORDERED: NITROGLYCERIN DRIP 0 MG/0 ML BOTTLE IV ONE (09:53)
[2016-10-31] MEDS ORDERED: VERAPAMIL 5 MG/2 ML VIAL ONE (09:53)
[2016-10-31] MEDS ORDERED: LIDOCAINE 1% 20 ML VIAL ONE (09:53)
[2016-10-31] MEDS ORDERED: DIAZEPAM 5 MG TABLET PO ONE (09:57)
[2016-10-31] MEDS: CARVEDILOL 12.5 MG TABLET PO SCH (09:58)
[2016-10-31] MEDS ORDERED: DILTIAZEM CD 120 MG CAPSULE PO SCH (10:00)
[2016-10-31] MEDS ORDERED: SODIUM CHLORIDE 0.9% 1,000 ML IV SCH (10:00)
--- NOTE | 2016-10-31 10:16 | Event Note ---
patient with chest pain and SOB. Has risk factors for CAD. For LHC and possible PCI. Discussed LHC with the patient and family (). Discussed idications, how procedure will be carried out, and risk. They voice understanding and agree to proceed.
[2016-10-31] MEDS ORDERED: MIDAZOLAM 2 MG/2 ML VIAL ONE (10:48)
[2016-10-31] MEDS ORDERED: fentaNYL 100 MCG/2 ML VIAL ONE (10:48)
[2016-10-31] MEDS ORDERED: diphenhydrAMINE 50 MG/1 ML VIAL ONE (11:02)
[2016-10-31] MEDS ORDERED: ADENOSINE 90 MG/30 ML VIAL IV ONE (11:15)
[2016-10-31] MEDS ORDERED: ENOXAPARIN 30 MG/0.3 ML SYRINGE ONE (11:15)
[2016-10-31] MEDS ORDERED: TIROFIBAN 5,000 MCG/100 ML PREMIX IV ONE (11:33)
[2016-10-31] MEDS ORDERED: TIROFIBAN 5,000 MCG/100 ML PREMIX IV SCH (11:38)
[2016-10-31] MEDS ORDERED: HYDROmorphone 2 MG/1 ML VIAL ONE (11:46)
[2016-10-31] MEDS ORDERED: NITROGLYCERIN DRIP 50 MG/250 ML BOTTLE IV ONE (11:49)
[2016-10-31] MEDS ORDERED: TICAGRELOR 90 MG TABLET ONE (11:55)
[2016-10-31] MEDS ORDERED: CLOPIDOGREL 300 MG TABLET ONE (11:58)
--- NOTE | 2016-10-31 12:08 | Operative Note ---
Date of procedure: 10/31/16 Procedure Preformed: Left heart catheterization, LV gram, selective left and right coronary angiograms, WaveWire of LAD, stent placement of second diagonal Surgeon / Physician: Adolfo Holly Urologist: Karsten Mckeon Post-op diagnosis: same Findings: Patient with mild to moderate coronary disease of the LAD, high-grade stenosis of the second diagonal branch. Specimens: none sent Estimated blood loss: minimal Condition: stable Anesthesia: local, conscious sedation Disposition: floor
--- NOTE | 2016-10-31 15:16 | Hospitalist Progress Note ---
Assessment and Plan (1) Unstable angina pectoris Status: Acute Current Visit: No (2) SLE (systemic lupus erythematosus) Status: Chronic Current Visit: Yes (3) Essential hypertension Status: Chronic Current Visit: Yes (4) Chronic anticoagulation Status: Chronic Current Visit: Yes (5) Hypokalemia Status: Acute Current Visit: Yes (6) History of CHF (congestive heart failure) Status: Resolved Current Visit: Yes Hospitalist: Subjective Interval history: Mrs Lerma had cath today that showed CAD and had stent in her second diagonal. She tolerated the procedure well and has no complaints. No more chest pain. Exam - Constitutional Vitals: Period Temp Pulse Resp BP Sys/Mckinney Pulse Ox Last 24 Hr 97.5 F-98.1 F 65-101 15-20 113-183/81-111 100-100 General appearance: no acute distress, over weight - Eye Eye exam: Present: EOMI. Absent: scleral icterus - Respiratory Respiratory exam: Present: clear to auscultation bilaterally - Cardiovascular Cardiovascular exam: Present: regular rate and rhythm - GI/Abdominal GI/Abdominal exam: Present: normal bowel sounds, soft. Absent: tenderness - Extremities Exam Extremities exam: Absent: edema Results - Labs CBC & BMP: 10/31/16 03:29 10/31/16 03:29 Lab Results: I have reviewed the past 24 hour labs Quality Measures - VTE Contraindication to Pharmacological VTE Prophylaxis: Already on Theraputic Agent , No Prophylaxis Needed Specialty Discharge - Follow Up or Referrals
--- NOTE | 2016-10-31 15:23 | Event Note ---
Patient is doing well post catheterization. She has a little bruising in her groin site but still Aggrastat. She has been on warfarin as well. We will continue her treatment at this time with these medications. I did discuss with her the findings are catheterization results of her intervention of the second diagonal branch. Also gave her pictures of this. Our plans would be to monitor overnight. She can be discharged tomorrow she is stable.
--- NOTE | 2016-10-31 17:30 | Cardiac Catheterization ---
Date of Procedure:: 10/31/16 Pre-op Diagnosis: Chest pain of anginal quality with risk factors for coronary disease. Post-op diagnosis: same Procedure: LEFT HEART CATHERIZATION History: 35-year-old female with anginal quality symptoms and risk factors for coronary disease. Pre-Op diagnosis: Angina and coronary disease. Postoperative diagnosis: Coronary disease with stenting of the second diagonal branch. Procedures: 1. Left heart catheterization. 2. Left ventricular angiogram. 3. Selective left and right coronary angiograms. 4. Percutaneous coronary intervention with stent in second diagonal 5. Right common femoral artery angiogram with Angio-Seal hemostasis. 6. Intracoronary nitroglycerin. 7. Intracoronary adenosine. Equipment: 6 [place] arterial sheath, 6 [place] diagnostic pigtail catheter, JL4 and JR4 diagnostic catheters. A 6 [place] Angio-Seal hemostatic device. For percutaneous coronary intervention: JL4 PCI guide cath catheter, WaveWire, 2.0 x 20 mm mini trek balloon, Xience alpine 2.25 mm x 23 mm TOMMY. Medications: Preoperative Benadryl and Valium given by mouth. Lidocaine 1% local anesthesia 10 mls administered by myself. Intraprocedure patient received Versed 2 milligrams IVP, fentanyl 100 micrograms IVP, Benadryl 50 mg IVP, Dilaudid 1 milligrams IVP. Adenosine IC 48 mcg left coronary system for WaveWire measurement For PCI: Lovenox 22 mgms; Aggrastat bolus 37.5 mls x 2; Integrilin infusion 13.1 ml/hr, Brilinta 180 mgms. Nitroglycerin IC 200 mcg left coronary system, Plavix 600 mg p.o. Complications: None immediate. Contrast: Omnipaque 268 milliliters. Description of procedure: After informed consent the patient was given preoperative medications and brought to the catheterization laboratory where their right groin was prepped and draped in usual fashion. IV sedation was then obtained after which local anesthesia was administered at the right groin over the right common femoral artery. Using modified Seldinger technique the right common femoral artery was cannulated with 6 [place] arterial sheath placed. The pigtail catheter was then advanced through the sheath in a retrograde approach through the aorta to the aortic valve. The catheter was advanced through the aortic valve where left ventricular pressures were measured. The catheter was then pulled back into the aortic root and pressures measured. The catheter was then advanced across the aortic valve into the left ventricle where left ventricular angiogram was obtained in the right anterior oblique view. The pigtail catheter was then removed. The JL4 diagnostic coronary catheter was then advanced through the sheath in a retrograde approach and used to cannulate the left coronary artery of which angiograms were obtained in multiple projections. This catheter was then removed. The JR 4 diagnostic coronary catheter was then advanced retrograde through the aorta and used to cannulate the right coronary artery of which angiograms were obtained in multiple projections. Angiograms were then reviewed. The LAD had questionable significant stenosis and we thus proceeded with FFR measurements with WaveWire. Way wire was advanced across the questionable LAD stenosis. Pressures were equalized proximally and then wire advanced past the lesions. Intracoronary adenosine was given. FFR minimally decreased to 0.86. It was felt the LAD stenoses were not significant. We then pulled WaveWire back and advanced this into the second diagonal and essentially had a double-barreled takeoff from the LAD with the first diagonal. We crossed the disease here and predilation was carried out with a 2.25 x 23 mm balloon followed by placement of a [employer] alpine 2.25 x 23 mm TOMMY. We used the balloon and then at low pressures just beyond the stent and proximal to the stent. Intracoronary nitroglycerin was given. Final angiograms revealed excellent results without any significant stenosis. See below for details of stenoses. Interventional equipment was then removed after final angiograms were obtained. The interventional catheter was pulled back into the sheath were right cuff artery angiogram was obtained and Angio-Seal hemostasis was achieved. Hemodynamic data: LV 163/-18 , EDP 4 ; AO root 171/96 , mean 128 . Left ventricular angiogram: Left ventricle is normal size and systolic function ejection fraction of 60+%. There is mitral regurgitation that appeared to be caused by PVCs. No segmental wall motion normality is noted. There are valve appeared to be a tricuspid structure. The thoracic aorta appear to be unremarkable and normal. Left main coronary artery angiogram: Left main coronary is a medium caliber vessel long bilateral and bifurcating in the LAD and circumflex arteries. There is no stenosis or disease present. Left anterior descending artery angiogram: The LAD is a medium caliber vessel proximally and extends around the posterior apical region. The first and second diagonal branches appear to have their takeoff from a common ostium from the LAD. Both the vessels are relatively small caliber but long. The second diagonal has a 90% stenosis with MARCELL II flow. The LAD actually beyond this has a couple areas of narrowing. Both areas appear to be at least 50% if not worse. RCA is a small medium caliber but dominant vessel. Circumflex artery angiogram: Circumflex artery is a medium caliber vessel and nondominant. The first obtuse marginal branch is a medium caliber relatively large vessel with multiple branches and covers a large area of lateral myocardium. Beyond this the circumflex arteries a very small vessel giving rise to small posterior ventricular branch. There is luminal irregularities but no stenosis or other disease noted. Right coronary artery angiogram: The PDA is a medium caliber vessel with posterior lateral branches being small caliber small AV node artery. There is luminal irregularities but no obstructive disease noted. PCI of second diagonal: This was as noted above in carried out with dilation of the 9% stenosis with MARCELL II flow to 0% residual stenosis and MARCELL-3 flow. Right common femoral artery angiogram: Right comfort arteries widely patent as is the proximal portion of the profundus branch and the superficial femoral artery. Successful initial hemostasis. Impression: 1. Left ventricle is normal size and systolic function ejection fraction 60+%. 2. LVEDP is normal at 4 mmHg. 3. Aortic valve appears to track obstruction without gradient. 4. The mitral valve regurgitation that is present appears to been induced by PVCs. 5. Right coronary artery is patent dominant and luminal irregularities but no obstructive coronary disease. 6. Left main coronary artery is widely patent without stenosis or disease. 7. The circumflex artery with luminal irregularities. 8. LAD with 50% mid stenosis. Second diagonal with 90% stenosis and MARCELL II flow. 9. Successful intervention with stent placement of the second diagonal with the 90% stenosis and MARCELL II flow dilated 0% residual stenosis and MARCELL-3 flow. 10. Right comfort is widely patent with successful Angio-Seal hemostasis. 11. Should be noted this patient had an uneventful intracoronary adenosine and nitroglycerin infused by hand for WaveWire and for coronary spasm. 12. WaveWire LAD with 0.86 post adenosine FFR. Discussion: We will marked the patient post intervention. We will discuss risk factor modification with the patient and healthy lifestyles. We will ask cardiac rehab to see the patient. Implants: See above Anesthesia: local, moderate conscious sedation Surgeon / Physician: Adolfo Holly Estimated blood loss: minimal Specimens: none sent Condition: stable Disposition: floor - Medications / Follow-up
[2016-10-31] MEDS ORDERED: WARFARIN 7.5 MG TABLET PO SCH (18:00)
[2016-10-31] MEDS ORDERED: ATORVASTATIN 40 MG TABLET PO SCH (21:00)
[2016-10-31] MEDS: DILTIAZEM CD 120 MG CAPSULE PO SCH (21:49)
[2016-11-01 05:22] LABS: Hematocrit 35.9 VOL% (35.7-47.0); Hemoglobin 11.7 GM/DL (12.0-16.0); Immature Granulocytes % 0.6 %; Immature Granulocytes Absolute 0.04 #; Lymphocytes # 0.5 10*3/uL (1.4-4.0); Lymphocytes % 6.5 % (21.3-54.2); Mean Corpuscular HGB Conc 32.6 GM/DL (32-36); Mean Corpuscular Hemoglobin 26 PG (27-34); Mean Corpuscular Volume 80.9 FL (87-102); Mean Platelet Volume 11.9 FL (9.6-12.0); Monocytes # 0.6 10*3/uL (0.11-0.8); Monocytes % 7.7 % (1.7-12.7); Neutrophils # 6.1 10*3/uL (1.4-7.4); Neutrophils % 85.2 % (38.7-73.9); Platelet Count 225 T/CUMM (130-400); Red Blood Count 4.44 MC/CUMM (3.8-5.5); Red Cell Distribution Width 14.6 % (9.3-17.3); White Blood Count 7.1 T/CUMM (4-12)
[2016-11-01 05:27] LABS: INR 3.4
[2016-11-01 05:35] LABS: PT Patient Result 39.5 SECS
[2016-11-01 06:00] LABS: Calcium 8.1 MG/DL (8.5-10.1); Magnesium 2.3 MG/DL (1.8-2.4); Osmolality,Calculated 287.1 MOS/KG (273-304); Potassium 4.5 MMOL/L (3.5-5.1)
[2016-11-01 06:06] LABS: Blood Urea Nitrogen 24 MG/DL (7-18); Calcium 8.2 MG/DL (8.5-10.1); Glucose 110 MG/DL (74-106); Osmolality,Calculated 285.3 MOS/KG (273-304); Potassium 4.5 MMOL/L (3.5-5.1); Sodium 141 MMOL/L (136-145)
[2016-11-01 06:09] LABS: Troponin I Only 0.099 NG/ML (0.00-0.045)
--- NOTE | 2016-11-01 07:37 | EKG Report ---
Stationary ECG Study [facility] Test Date: 11/01/2016 7:35:25 AM Pat Name: LEATHA BARR Department: Room: 287 Gender: F Ophthalmic Medical Technician: : 1980 Requested by: Adolfo Vega Order Number: [id number] Reading MD: NATALIE MELISSA Intervals [place] Rate: 70 P: 26 LA: 208 QRS: 35 QRSD: 97 T: 61 QT: 402 QTc: 422 Interpretive Statements SINUS RHYTHM Electronically Signed On 11-01-16 22:45:18 CDT by NATALIE MELISSA [email or web address]
[2016-11-01] MEDS ORDERED: CLOPIDOGREL 75 MG TABLET PO SCH (09:00)
[2016-11-01] MEDS: hydroCHLOROthiazide 25 MG TABLET PO SCH (09:43)
[2016-11-01] MEDS: LOSARTAN 50 MG TABLET PO SCH (09:43)
[2016-11-01] MEDS: DILTIAZEM CD 120 MG CAPSULE PO SCH (09:44)
[2016-11-01] MEDS: ASPIRIN EC 81 MG TABLET PO SCH (09:45)
[2016-11-01] MEDS: predniSONE 20 MG TABLET PO SCH (09:45)
[2016-11-01] MEDS: HYDROXYCHLOROQUINE 200 MG TABLET PO SCH (09:45)
[2016-11-01] MEDS: PANTOPRAZOLE 40 MG TABLET PO SCH (09:45)
--- NOTE | 2016-11-01 10:26 | Discharge Summary ---
Hospital Course - Hospital Course Hospital Course: 35-year-old -[place] female with past medical history of lupus, CHF, hypertension, interstitial cystitis who presented to the emergency room with crushing pain radiating to her left shoulder with associated shortness of breath , nausea, diaphoresis. It was intense for approximately 5 minutes and then became a constant dull pain in the chest. She has had intermittent pain for 3 days but this was worsened. She was admitted to the hospitalist service and treated medically. Serial cardiac biomarkers were negative. Cardiology was consulted and she underwent cardiac catheterization on 10/31/16. She had normal LV function with ejection fraction estimated at 60%. Right coronary artery was patent and dominant with luminal irregularities but no obstructive disease. Left main coronary artery was widely patent. Circumflex artery with luminal irregularities. LAD revealed a 50% mid stenosis. Second diagonal with 90% stenosis and MARCELL II flow. There were successful intervention with stent placement of the second diagonal with 0% residual stenosis and MARCELL-3 flow. Patient did well post procedure and is currently asymptomatic. She has been reevaluated by Dr. Holly who feels that she has reached maximal benefit from hospital course and can be discharged home. - Time spent with patient Time with patient DS: Less than 30 minutes Diagnosis - Discharge Diagnosis (1) Coronary artery disease Status: Acute (2) Lupus (systemic lupus erythematosus) Status: Acute (3) Chest pain Status: Acute (4) Essential hypertension Status: Chronic (5) Chronic anticoagulation Status: Chronic Specialty Discharge - Follow Up or Referrals Discharge Plan - Discharge Data Disposition: Disch To Home/Self Care Condition at Discharge: Stable Discharge Diet: heart healthy Activity: resume usual activities as tolerated Contact your physician if you experience:: fever over 101, Redness or swelling, Shortness of breath - Discharge Medications New Clopidogrel [Plavix] 75 mg PO DAILY #30 tablet Diltiazem Cd Cap [Cardizem CD] 120 mg PO BID #60 capsule Atorvastatin [Lipitor] 40 mg PO BEDTIME #30 tablet Warfarin [Coumadin] 7.5 mg PO [id number] tablet Continue cloNIDine TAB [Catapres Tab] 0.2 mg PO TID Hydroxychloroquine Sulfate 200 mg PO BID Losartan Potassium [Cozaar] 100 mg PO DAILY Aspirin EC Tab 81 mg PO BID Sildenafil Citrate [Viagra] 50 mg PO BID hydroCHLOROthiazide [Hydrochlorothiazide] 25 mg PO DAILY Warfarin Sodium 5 mg PO SUTUTHSA predniSONE TAB [PredniSONE] 20 mg PO DAILY #30 tablet Discontinued amLODIPine [Norvasc] 10 mg PO DAILY Warfarin Sodium 7.5 mg PO MOWE - Follow Up or Referral Follow Up: Adolfo Holly MD [Physician] - 1 Week - Forms/Instructions Instructions: Left Heart Catheterization (DC), Heart Healthy Diet (GEN), Coronary Artery Disease in Women (GEN), Coronary Intravascular Stent Placement, [employer] Consult[employer] (GEN) Additional Discharge Instructions: Follow-up with primary care provider 1-2 weeks. Exam - Constitutional Vitals: Period Temp Pulse Resp BP Sys/Mckinney Pulse Ox Last 24 Hr 96.9 F-97.9 F 73-95 16-20 119-159/80-98 97-99 General appearance: no acute distress - Head Head exam: Present: normocephalic, atraumatic - Eye Eye exam: Present: EOMI Pupils: Present: normal accommodation - ENT ENT exam: Present: normal exam - Neck Neck exam: Present: normal inspection - Respiratory Respiratory exam: Present: clear to auscultation bilaterally - Cardiovascular Cardiovascular exam: Present: regular rate and rhythm - GI/Abdominal GI/Abdominal exam: Present: normal bowel sounds, soft. Absent: tenderness, rebound - Extremities Exam Extremities exam: Absent: calf tenderness, edema - Back Exam Back exam: Present: normal inspection - Neurological Exam Neurological exam: Present: alert, oriented X3, CN II-XII intact. Absent: motor sensory deficit - Psychiatric Psychiatric exam: Present: normal affect, normal mood. Absent: agitated, anxious - Skin Skin exam: Present: warm, dry. Absent: erythema, rash Discharge Results Procedures and tests throughout hospitalization: Pending Orders 10/31/16 09:44 CL heart Routine 11/02/16 04:00 Prothrombin Time INR IN AM 11/03/16 04:00 Prothrombin Time INR IN AM Labs on day of discharge: Labs from last 24 hours 11/01/16 11/01/16 11/01/16 04:33 04:33 04:33 WBC 7.1 D RBC 4.44 Hgb 11.7 L Hct 35.9 MCV 80.9 L MCH 26 L MCHC 32.6 RDW 14.6 Plt Count 225 MPV 11.9 Neut % (Auto) 85.2 H Lymph % (Auto) 6.5 L [place] % (Auto) 7.7 Eos % (Auto) 0.0 Baso % (Auto) 0.0 Neut # (Auto) 6.1 Lymph # (Auto) 0.5 L [place] # (Auto) 0.6 Eos # (Auto) 0.0 Baso # (Auto) 0.0 Immature Gran % 0.6 Nucleated RBC % 0.0 Immature Gran # 0.04 Nucleated RBCs # 0.00 Immature Plt Fraction 0.0 INR PT Patient/Control Mix Sodium 141 142 Potassium 4.5 4.5 Chloride 108 H 109 H Carbon Dioxide 25 26 Anion Gap 12.5 11.5 BUN 24 H 24 H Creatinine 0.90 0.90 GFR Calculation 95 95 BUN/Creatinine Ratio 26.00 H 26.00 H Glucose 110 H 111 H Calculated Osmolality 285.3 287.1 Calcium 8.2 L 8.1 L Magnesium 2.3 Total Creatine Kinase 24 L CK-MB (CK-2) < 1.0 Troponin I 0.099 H D 11/01/16 04:33 WBC RBC Hgb Hct MCV MCH MCHC RDW Plt Count MPV Neut % (Auto) Lymph % (Auto) [place] % (Auto) Eos % (Auto) Baso % (Auto) Neut # (Auto) Lymph # (Auto) [place] # (Auto) Eos # (Auto) Baso # (Auto) Immature Gran % Nucleated RBC % Immature Gran # Nucleated RBCs # Immature Plt Fraction INR 3.4 PT Patient/Control Mix 39.5 D Sodium Potassium Chloride Carbon Dioxide Anion Gap BUN Creatinine GFR Calculation BUN/Creatinine Ratio Glucose Calculated Osmolality Calcium Magnesium Total Creatine Kinase CK-MB (CK-2) Troponin I DS: Provider Date of admission: 10/30/16 13:08 Primary care physician: . No PCP Attending physician on admission: Inez Gonsales MD Consults: 10/30/16 14:56 Consult to Physician [CONS] Routine Comment: lupus vasculitis, chest pain Consulting Provider: Cardiology - [facility] Consult to Specialist Group: Cardiology When should Consulting Provider be notified: Now Person Notified: tere Date Notified: 10/31/16 Time Notified: 07:40 10/30/16 16:41 Consult to Dietitian [CONS] Routine Reason for Dietitian: Other 10/31/16 12:08 Consult to Cardiac Rehabilitation [CONS] Routine Reason for Cardiac Rehabilitation: Risk Factor Modification Discharging clinician: Miguelina Hagen Expected date of discharge: 11/01/16
--- NOTE | 2016-11-01 10:48 | Cardiology Progress Note ---
Assessment and Plan (1) Chest pain Status: Acute Assessment and plan: No further chest pain with intervention of the diagonal branch. Current Visit: Yes (2) SLE (systemic lupus erythematosus) Status: Chronic Assessment and plan: This may contribute to her vascular disease. Current Visit: Yes (3) Essential hypertension Status: Chronic Assessment and plan: Blood pressures are fairly stable. Current Visit: Yes (4) Chronic anticoagulation Status: Chronic Assessment and plan: Continue anticoagulation. Current Visit: Yes (5) Coronary artery disease Status: Acute Assessment and plan: Now post stenting of her diagonal branch. She has disease that she will need aggressive risk factor modification for. Current Visit: Yes (6) Dyslipidemia Status: Acute Assessment and plan: Should need to continue aggressive therapy for this. Will manage this as an outpatient. Current Visit: Yes Cardiology - PN: Subj Interval history: Patient is doing well without any chest pain. Feels a little weak. No shortness of breath. She is done well post catheterization the right groin is stable. She has had no palpitations or issues during the night. Get I discussed with the patient our findings and plans. She voices understanding. I think generally is patient agrees maximum hospital benefit. She will need continued aggressive risk factor modification are discussed with her. Her vital signs and telemetry been stable. Our plans to be to discharge today if primary service is agreeable. Exam (Progress Note) - Constitutional Vitals: Period Temp Pulse Resp BP Sys/Mckinney Pulse Ox Last 24 Hr 96.9 F-97.9 F 73-95 16-20 119-159/80-98 97-99 Exam: General appearance: normal weight, no acute distress HEENT exam: normal inspection, atraumatic Neck exam: normal inspection no JVD. No carotid bruit. Trachea is in midline Respiratory/lungs exam: clear to auscultation bilaterally good air movement. Cardiovascular exam: regular rate and rhythm, no murmur or gallop or rub. No precordial lift. Chest wall exam: nontender GI/Abdominal exam: normal bowel sounds, soft, nontender, no abdominal bruits or pulsatile masses. Extremeties/musculoskeletal: normal inspection without edema or cyanosis. Right groin stable. Neurological exam: alert, oriented X3, no focal deficits Psychiatric exam: normal affect, normal mood. Cognitive function is grossly normal. Skin exam: normal color, warm Result/EKG - Labs CBC & BMP: 11/01/16 04:33 11/01/16 04:33 Lab Results: I have reviewed the past 24 hour labs (Her cardiac enzymes are normal.) Labs: Laboratory Results - last 24 hr 11/01/16 11/01/16 11/01/16 04:33 04:33 04:33 WBC 7.1 D RBC 4.44 Hgb 11.7 L Hct 35.9 MCV 80.9 L MCH 26 L MCHC 32.6 RDW 14.6 Plt Count 225 MPV 11.9 Neut % (Auto) 85.2 H Lymph % (Auto) 6.5 L [place] % (Auto) 7.7 Eos % (Auto) 0.0 Baso % (Auto) 0.0 Neut # (Auto) 6.1 Lymph # (Auto) 0.5 L [place] # (Auto) 0.6 Eos # (Auto) 0.0 Baso # (Auto) 0.0 Immature Gran % 0.6 Nucleated RBC % 0.0 Immature Gran # 0.04 Nucleated RBCs # 0.00 Immature Plt Fraction 0.0 INR 3.4 PT Patient/Control Mix 39.5 D Sodium 142 Potassium 4.5 Chloride 109 H Carbon Dioxide 26 Anion Gap 11.5 BUN 24 H Creatinine 0.90 GFR Calculation 95 BUN/Creatinine Ratio 26.00 H Glucose 111 H Calculated Osmolality 287.1 Calcium 8.1 L Magnesium 2.3 Total Creatine Kinase CK-MB (CK-2) Troponin I 11/01/16 04:33 WBC RBC Hgb Hct MCV MCH MCHC RDW Plt Count MPV Neut % (Auto) Lymph % (Auto) [place] % (Auto) Eos % (Auto) Baso % (Auto) Neut # (Auto) Lymph # (Auto) [place] # (Auto) Eos # (Auto) Baso # (Auto) Immature Gran % Nucleated RBC % Immature Gran # Nucleated RBCs # Immature Plt Fraction INR PT Patient/Control Mix Sodium 141 Potassium 4.5 Chloride 108 H Carbon Dioxide 25 Anion Gap 12.5 BUN 24 H Creatinine 0.90 GFR Calculation 95 BUN/Creatinine Ratio 26.00 H Glucose 110 H Calculated Osmolality 285.3 Calcium 8.2 L Magnesium Total Creatine Kinase 24 L CK-MB (CK-2) < 1.0 Troponin I 0.099 H D - Impressions Impressions: Telemetry normal sinus rhythm. The patient ECG today is normal sinus rhythm and within normal limits. Quality Measures - VTE Contraindication to Pharmacological VTE Prophylaxis: Already on Theraputic Agent , No Prophylaxis Needed Specialty Discharge - Follow Up or Referrals Follow up with: Adolfo Holly MD [Physician] - 1 Week (Follow with me within 1 week with ECG.)
[2016-11-01 12:19] VITALS: BP 94/59
== END 2016-11-01 12:53 | disposition home or self-care (01) | DRG 247 ==
LOC: N.ED 10:17 → N.EDINP 13:08 → SUATTDRO 13:08 → N.EDINP 16:15 → N.TELEN 16:52
PROVIDERS: ADMIT Internal Medicine; ATTEND Hospitalist
PROC: CLCCHCL (ICD-10-PCS; 2016-10-31 11:15)

== ENCOUNTER 2017-07-06 09:05 | Inpatient (IN) ==
[2017-07-06] MEDS ORDERED: ONDANSETRON 4 MG/2 ML VIAL IV STA (09:18)
[2017-07-06] MEDS ORDERED: SODIUM CHLORIDE 0.9% 1,000 ML IV STA (09:18)
[2017-07-06] MEDS ORDERED: HYDROmorphone 2 MG/1 ML VIAL IV STA (09:19)
[2017-07-06] MEDS ORDERED: DILTIAZEM 50 MG/10 ML VIAL IV STA (09:19)
[2017-07-06] MEDS ORDERED: DILTIAZEM 100 MG VIAL.ADD IV ONE (09:26)
[2017-07-06] MEDS ORDERED: HYDROmorphone 2 MG/1 ML VIAL ONE (09:27)
[2017-07-06] MEDS ORDERED: DILTIAZEM 50 MG/10 ML VIAL IV ONE ×2 (09:27→12:12)
[2017-07-06] MEDS ORDERED: ONDANSETRON 4 MG/2 ML VIAL ONE (09:27)
[2017-07-06 09:37] LABS: Basophils % 0.1 % (0.0-0.8); Eosinophils % 0.1 % (0.00-10.9); Hematocrit 54.6 VOL% (35.7-47.0); Hemoglobin 17.5 GM/DL (12.0-16.0); Immature Granulocytes % 0.5 %; Immature Granulocytes Absolute 0.06 #; Lymphocytes % 8.4 % (21.3-54.2); Mean Corpuscular HGB Conc 32.1 GM/DL (32-36); Mean Corpuscular Hemoglobin 26 PG (27-34); Mean Corpuscular Volume 80.2 FL (87-102); Mean Platelet Volume 10.5 FL (9.6-12.0); Monocytes # 0.6 10*3/uL (0.11-0.8); Monocytes % 4.7 % (1.7-12.7); Neutrophils # 10.4 10*3/uL (1.4-7.4); Neutrophils % 86.2 % (38.7-73.9); Platelet Count 326 T/CUMM (130-400); Red Blood Count 6.81 MC/CUMM (3.8-5.5); Red Cell Distribution Width 14.7 % (9.3-17.3)
[2017-07-06] MEDS ORDERED: SODIUM CHLORIDE 0.9% 100 ML IV ONE (10:03)
[2017-07-06 10:05] LABS: Lactic Acid 2.2 MMOL/L (0.4-2.0)
[2017-07-06] MEDS: DILTIAZEM INJ 100 MG in SODIUM CHLORIDE 0.9% 100 ML IV SCH ×2 (10:08→15:30)
[2017-07-06 10:15] LABS: Albumin 2.8 G/DL (3.4-5.0); Bilirubin,Total 0.6 MG/DL (0.2-1.0); Calcium 8.9 MG/DL (8.5-10.1); Potassium 4.2 MMOL/L (3.5-5.1); Total Protein 6.4 G/DL (6.4-8.3)
[2017-07-06 10:22] LABS: PT Patient Result 10.1 SECS; Partial Thromboplastin Time 23.4 SECS (0-40)
[2017-07-06] MEDS ORDERED: HYDROmorphone 2 MG/1 ML VIAL IV ONE (12:13)
[2017-07-06] MEDS ORDERED: niCARdipine INJ 25 MG in SODIUM CHLORIDE 0.9% 240 ML IV PRN (12:16)
[2017-07-06] MEDS ORDERED: methylPREDNISolone SOD SUC 125 MG/2 ML VIAL IV ONE (12:36)
[2017-07-06] MEDS ORDERED: ALBUTEROL 2.5 MG/3 ML NEB RESP TX PRN (14:54)
[2017-07-06] MEDS ORDERED: NON-FORMULARY MEDICATION (Albuterol Inhaler 2 PUFF) INH PRN (14:56)
[2017-07-06] MEDS ORDERED: FUROSEMIDE 40 MG TABLET PO SCH (16:00)
[2017-07-06] MEDS: HYDROXYCHLOROQUINE 200 MG TABLET PO SCH (17:00)
[2017-07-06] MEDS: SODIUM CHLORIDE 0.9% 1,000 ML IV SCH ×2 (17:00→23:01)
[2017-07-06] MEDS: FAMOTIDINE 20 MG/2 ML VIAL IV SCH (17:35)
[2017-07-06] MEDS ORDERED: WARFARIN 7.5 MG TABLET PO SCH (18:00)
[2017-07-06] MEDS: MORPHINE 4 MG/1 ML VIAL IV PRN (18:20)
[2017-07-06] MEDS: CARVEDILOL 12.5 MG TABLET PO SCH (21:26)
[2017-07-06] MEDS: ASPIRIN EC 81 MG TABLET PO SCH (21:26)
[2017-07-06] MEDS: MINOXIDIL 2.5 MG TABLET PO SCH (21:26)
[2017-07-07] MEDS: MORPHINE 4 MG/1 ML VIAL IV PRN ×2 (02:14→16:10)
[2017-07-07 03:38] LABS: Apearance,Urine CLOUDY (Clear); Bacteria,Urine Occasional /HPF (Few); Bilirubin,Urine Negative (Negative); Blood, Urine Small mg/dL (Negative); Glucose,Urine (UA) Negative (Negative); Hyaline Casts,Urine 3 /LPF (0-3); Ketones,Urine Negative (Negative); Mucus,Urine Occasional /LPF (Occasional); Nitrite,Urine Negative (Negative); Protein,Urine 100 MG/DL; RBC,Urine 6 /HPF (0-4); Squamous Epithelial Cell,Urine Occasional /HPF (0-10); Urine Color Yellow (Yellow); Urine Specific Gravity 1.014 (1.001-1.035); Urine Urobilinogen < 2.0 EU/DL (0.2-1.0); WBC,Urine 19 /HPF (0-6)
[2017-07-07 05:49] LABS: Hematocrit 36.9 VOL% (35.7-47.0); Hemoglobin 11.7 GM/DL (12.0-16.0); Immature Granulocytes % 0.6 %; Immature Granulocytes Absolute 0.03 #; Lymphocytes # 0.7 10*3/uL (1.4-4.0); Lymphocytes % 14.2 % (21.3-54.2); Mean Corpuscular HGB Conc 31.7 GM/DL (32-36); Mean Corpuscular Hemoglobin 26 PG (27-34); Mean Corpuscular Volume 81.6 FL (87-102); Mean Platelet Volume 11.2 FL (9.6-12.0); Monocytes # 0.3 10*3/uL (0.11-0.8); Monocytes % 5.6 % (1.7-12.7); Neutrophils # 3.7 10*3/uL (1.4-7.4); Neutrophils % 79.6 % (38.7-73.9); Platelet Count 199 T/CUMM (130-400); Red Blood Count 4.52 MC/CUMM (3.8-5.5); Red Cell Distribution Width 14.2 % (9.3-17.3); White Blood Count 4.7 T/CUMM (4-12)
[2017-07-07 06:12] LABS: Albumin 2.2 G/DL (3.4-5.0); Bilirubin,Total 0.6 MG/DL (0.2-1.0); Calcium 7.8 MG/DL (8.5-10.1); Osmolality,Calculated 307.7 MOS/KG (273-304); Potassium 4.9 MMOL/L (3.5-5.1); Total Protein 4.7 G/DL (6.4-8.3)
[2017-07-07] MEDS ORDERED: FUROSEMIDE 20 MG TABLET PO SCH (08:00)
[2017-07-07] MEDS: ONDANSETRON 4 MG/2 ML VIAL IV PRN ×2 (08:15→18:35)
[2017-07-07] MEDS: HYDROXYCHLOROQUINE 200 MG TABLET PO SCH (08:45)
[2017-07-07] MEDS: CARVEDILOL 12.5 MG TABLET PO SCH ×2 (08:45→21:08)
[2017-07-07] MEDS: amLODIPine 10 MG TABLET PO SCH (08:45)
[2017-07-07] MEDS: CLOPIDOGREL 75 MG TABLET PO SCH (08:45)
[2017-07-07] MEDS: ASPIRIN EC 81 MG TABLET PO SCH ×2 (08:45→21:08)
[2017-07-07] MEDS: MINOXIDIL 2.5 MG TABLET PO SCH (08:45)
[2017-07-07 08:50] LABS: INR 1.1; PT Patient Result 11.4 SECS
[2017-07-07] MEDS: SODIUM CHLORIDE 0.9% 1,000 ML IV SCH ×2 (10:25→18:30)
[2017-07-07] MEDS: DILTIAZEM INJ 100 MG in SODIUM CHLORIDE 0.9% 100 ML IV SCH (10:28)
[2017-07-07] MEDS: ENOXAPARIN 30 MG/0.3 ML SYRINGE SUBCUT SCH (10:40)
[2017-07-07] MEDS: FAMOTIDINE 20 MG/2 ML VIAL IV SCH (15:05)
[2017-07-07] MEDS ORDERED: WARFARIN 5 MG TABLET PO SCH (18:00)
[2017-07-07] MEDS: MYCOPHENOLATE MOFETIL 250 MG CAPSULE PO SCH (21:08)
[2017-07-08 05:12] LABS: Hematocrit 30.8 VOL% (35.7-47.0); Hemoglobin 9.8 GM/DL (12.0-16.0); Immature Granulocytes % 0.7 %; Immature Granulocytes Absolute 0.05 #; Lymphocytes # 0.7 10*3/uL (1.4-4.0); Lymphocytes % 9.5 % (21.3-54.2); Mean Corpuscular HGB Conc 31.8 GM/DL (32-36); Mean Corpuscular Hemoglobin 26 PG (27-34); Mean Corpuscular Volume 81.3 FL (87-102); Mean Platelet Volume 11.3 FL (9.6-12.0); Monocytes # 0.8 10*3/uL (0.11-0.8); Monocytes % 10.8 % (1.7-12.7); Platelet Count 184 T/CUMM (130-400); Red Blood Count 3.79 MC/CUMM (3.8-5.5); Red Cell Distribution Width 13.7 % (9.3-17.3); White Blood Count 7.6 T/CUMM (4-12)
[2017-07-08 05:21] LABS: Calcium 7.4 MG/DL (8.5-10.1); Osmolality,Calculated 301.3 MOS/KG (273-304); Potassium 4.2 MMOL/L (3.5-5.1)
[2017-07-08] MEDS: ONDANSETRON 4 MG/2 ML VIAL IV PRN (05:27)
[2017-07-08] MEDS: SODIUM CHLORIDE 0.9% 1,000 ML IV SCH ×3 (05:27→21:57)
[2017-07-08] MEDS: MORPHINE 4 MG/1 ML VIAL IV PRN (05:27)
[2017-07-08] MEDS: MYCOPHENOLATE MOFETIL 250 MG CAPSULE PO SCH ×2 (08:00→20:37)
[2017-07-08] MEDS: CARVEDILOL 12.5 MG TABLET PO SCH ×2 (08:00→20:35)
[2017-07-08] MEDS: ASPIRIN EC 81 MG TABLET PO SCH ×2 (08:01→20:35)
[2017-07-08] MEDS: CLOPIDOGREL 75 MG TABLET PO SCH (08:01)
[2017-07-08] MEDS: amLODIPine 10 MG TABLET PO SCH (08:01)
[2017-07-08] MEDS: HYDROXYCHLOROQUINE 200 MG TABLET PO SCH (08:01)
[2017-07-08] MEDS: DILTIAZEM INJ 100 MG in SODIUM CHLORIDE 0.9% 100 ML IV SCH (08:40)
[2017-07-08] MEDS: ENOXAPARIN 30 MG/0.3 ML SYRINGE SUBCUT SCH (09:47)
[2017-07-08] MEDS: FAMOTIDINE 20 MG/2 ML VIAL IV SCH (15:24)
[2017-07-08] MEDS: WARFARIN 5 MG TABLET PO SCH (18:18)
[2017-07-08] MEDS: hydrALAZINE 20 MG/1 ML VIAL IV PRN (22:28)
[2017-07-09] MEDS: ONDANSETRON 4 MG/2 ML VIAL IV PRN (04:15)
[2017-07-09 04:58] LABS: Eosinophils % 0.4 % (0.00-10.9); Hematocrit 32.9 VOL% (35.7-47.0); Hemoglobin 10.5 GM/DL (12.0-16.0); Immature Granulocytes % 1.2 %; Immature Granulocytes Absolute 0.07 #; Lymphocytes # 0.7 10*3/uL (1.4-4.0); Lymphocytes % 12.6 % (21.3-54.2); Mean Corpuscular HGB Conc 31.9 GM/DL (32-36); Mean Corpuscular Hemoglobin 26 PG (27-34); Mean Platelet Volume 10.7 FL (9.6-12.0); Monocytes # 0.7 10*3/uL (0.11-0.8); Monocytes % 12.5 % (1.7-12.7); Neutrophils # 4.2 10*3/uL (1.4-7.4); Neutrophils % 73.3 % (38.7-73.9); Platelet Count 176 T/CUMM (130-400); Red Blood Count 4.06 MC/CUMM (3.8-5.5); Red Cell Distribution Width 13.6 % (9.3-17.3); White Blood Count 5.7 T/CUMM (4-12)
[2017-07-09 05:04] LABS: INR 1.8; PT Patient Result 18.8 SECS
[2017-07-09 05:32] LABS: Calcium 7.6 MG/DL (8.5-10.1); Osmolality,Calculated 302.8 MOS/KG (273-304); Potassium 3.7 MMOL/L (3.5-5.1)
[2017-07-09] MEDS: CLOPIDOGREL 75 MG TABLET PO SCH (08:39)
[2017-07-09] MEDS: ENOXAPARIN 30 MG/0.3 ML SYRINGE SUBCUT SCH (08:39)
[2017-07-09] MEDS: MYCOPHENOLATE MOFETIL 250 MG CAPSULE PO SCH ×2 (08:39→20:29)
[2017-07-09] MEDS: amLODIPine 10 MG TABLET PO SCH (08:39)
[2017-07-09] MEDS: FAMOTIDINE 20 MG/2 ML VIAL IV SCH (08:40)
[2017-07-09] MEDS: CARVEDILOL 12.5 MG TABLET PO SCH ×2 (08:40→20:30)
[2017-07-09] MEDS: ASPIRIN EC 81 MG TABLET PO SCH ×2 (08:40→20:29)
[2017-07-09] MEDS: predniSONE 20 MG TABLET PO SCH ×2 (08:40→20:29)
[2017-07-09] MEDS: HYDROXYCHLOROQUINE 200 MG TABLET PO SCH (08:40)
[2017-07-09] MEDS ORDERED: predniSONE 20 MG TABLET PO SCH (09:00)
[2017-07-09] MEDS: hydrALAZINE 20 MG/1 ML VIAL IV PRN (12:06)
[2017-07-09] MEDS ORDERED: LEVOFLOXACIN 500 MG TABLET PO ONE (16:30)
[2017-07-09] MEDS: WARFARIN 5 MG TABLET PO SCH (17:23)
[2017-07-09] MEDS: SODIUM CHLORIDE 0.9% 1,000 ML IV SCH ×2 (19:43)
[2017-07-10] MEDS: hydrALAZINE 20 MG/1 ML VIAL IV PRN ×3 (00:49→14:09)
[2017-07-10] MEDS: MORPHINE 4 MG/1 ML VIAL IV PRN ×2 (04:25→08:11)
[2017-07-10] MEDS: SODIUM CHLORIDE 0.9% 1,000 ML IV SCH ×3 (04:47→20:46)
[2017-07-10 05:04] LABS: Hematocrit 34.1 VOL% (35.7-47.0); Hemoglobin 11.6 GM/DL (12.0-16.0); Immature Granulocytes % 0.9 %; Immature Granulocytes Absolute 0.04 #; Lymphocytes # 0.3 10*3/uL (1.4-4.0); Lymphocytes % 7.7 % (21.3-54.2); Mean Corpuscular Hemoglobin 26 PG (27-34); Mean Corpuscular Volume 77.5 FL (87-102); Mean Platelet Volume 11.4 FL (9.6-12.0); Monocytes # 0.1 10*3/uL (0.11-0.8); Monocytes % 2.7 % (1.7-12.7); Neutrophils # 3.9 10*3/uL (1.4-7.4); Neutrophils % 88.7 % (38.7-73.9); Platelet Count 186 T/CUMM (130-400); Red Cell Distribution Width 13.6 % (9.3-17.3); White Blood Count 4.4 T/CUMM (4-12)
[2017-07-10 05:13] LABS: INR 2.7
[2017-07-10 05:14] LABS: PT Patient Result 27.2 SECS
[2017-07-10 05:39] LABS: Calcium 8.2 MG/DL (8.5-10.1); Potassium 4.1 MMOL/L (3.5-5.1)
[2017-07-10] MEDS: CLOPIDOGREL 75 MG TABLET PO SCH (11:24)
[2017-07-10] MEDS: CARVEDILOL 12.5 MG TABLET PO SCH ×2 (11:24→20:45)
[2017-07-10] MEDS: amLODIPine 10 MG TABLET PO SCH (11:24)
[2017-07-10] MEDS: MYCOPHENOLATE MOFETIL 250 MG CAPSULE PO SCH ×2 (11:24→20:44)
[2017-07-10] MEDS: HYDROXYCHLOROQUINE 200 MG TABLET PO SCH (11:25)
[2017-07-10] MEDS: predniSONE 20 MG TABLET PO SCH ×2 (11:25→20:45)
[2017-07-10] MEDS: ENOXAPARIN 30 MG/0.3 ML SYRINGE SUBCUT SCH (11:26)
[2017-07-10] MEDS: ASPIRIN EC 81 MG TABLET PO SCH ×2 (11:26→20:45)
[2017-07-10] MEDS: FAMOTIDINE 20 MG/2 ML VIAL IV SCH (11:30)
[2017-07-10] MEDS: LINACLOTIDE 145 MCG CAPSULE PO SCH (20:03)
[2017-07-11 05:49] LABS: Hematocrit 37.3 VOL% (35.7-47.0); Hemoglobin 11.8 GM/DL (12.0-16.0); Immature Granulocytes % 0.6 %; Immature Granulocytes Absolute 0.04 #; Lymphocytes # 0.4 10*3/uL (1.4-4.0); Lymphocytes % 5.5 % (21.3-54.2); Mean Corpuscular HGB Conc 31.6 GM/DL (32-36); Mean Corpuscular Hemoglobin 25 PG (27-34); Mean Corpuscular Volume 80.4 FL (87-102); Mean Platelet Volume 11.4 FL (9.6-12.0); Monocytes # 0.3 10*3/uL (0.11-0.8); Neutrophils % 88.9 % (38.7-73.9); Platelet Count 215 T/CUMM (130-400); Red Blood Count 4.64 MC/CUMM (3.8-5.5); Red Cell Distribution Width 13.6 % (9.3-17.3); White Blood Count 6.8 T/CUMM (4-12)
[2017-07-11 06:00] LABS: PT Patient Result 49.5 SECS
[2017-07-11 06:36] LABS: Alanine Aminotransferase 12 U/L (13-56); Albumin 2.3 G/DL (3.4-5.0); Alkaline Phosphatase 32 U/L (45-117); Aspartate Amino Transferase 12 U/L (0-37); Bilirubin,Total < 0.39 MG/DL (0.2-1.0); Blood Urea Nitrogen 49 MG/DL (7-18); Calcium 8.2 MG/DL (8.5-10.1); Glucose 109 MG/DL (74-106); Osmolality,Calculated 296.1 MOS/KG (273-304); Potassium 4.5 MMOL/L (3.5-5.1); Sodium 142 MMOL/L (136-145); Total Protein 5.2 G/DL (6.4-8.3)
[2017-07-11] MEDS: CARVEDILOL 12.5 MG TABLET PO SCH ×2 (08:49→21:22)
[2017-07-11] MEDS: predniSONE 20 MG TABLET PO SCH ×2 (08:49→21:20)
[2017-07-11] MEDS: ASPIRIN EC 81 MG TABLET PO SCH ×2 (08:49→21:21)
[2017-07-11] MEDS: CLOPIDOGREL 75 MG TABLET PO SCH (08:49)
[2017-07-11] MEDS: HYDROXYCHLOROQUINE 200 MG TABLET PO SCH (08:49)
[2017-07-11] MEDS: amLODIPine 10 MG TABLET PO SCH (08:49)
[2017-07-11] MEDS: MYCOPHENOLATE MOFETIL 250 MG CAPSULE PO SCH ×2 (08:50→21:14)
[2017-07-11] MEDS: LINACLOTIDE 145 MCG CAPSULE PO SCH (08:50)
[2017-07-11] MEDS: FAMOTIDINE 20 MG/2 ML VIAL IV SCH (08:51)
[2017-07-11] MEDS: ENOXAPARIN 30 MG/0.3 ML SYRINGE SUBCUT SCH (08:51)
[2017-07-11] MEDS ORDERED: LEVOFLOXACIN 250 MG TABLET PO SCH ×2 (09:00)
[2017-07-11] MEDS ORDERED: LINACLOTIDE 145 MCG CAPSULE PO ONE (10:08)
[2017-07-11] MEDS ORDERED: traMADol 50 MG TABLET PO PRN (10:40)
[2017-07-11] MEDS: METOCLOPRAMIDE 10 MG/2 ML VIAL IV SCH ×2 (11:41→18:43)
[2017-07-11] MEDS: PANTOPRAZOLE 40 MG TABLET PO SCH (18:43)
[2017-07-11] MEDS: SODIUM CHLORIDE 0.9% 1,000 ML IV SCH ×2 (21:13→23:30)
[2017-07-12] MEDS: hydrALAZINE 20 MG/1 ML VIAL IV PRN ×2 (00:38→12:40)
[2017-07-12] MEDS: METOCLOPRAMIDE 10 MG/2 ML VIAL IV SCH ×3 (00:41→12:39)
[2017-07-12 05:06] LABS: Basophils % 0.1 % (0.0-0.8); Hematocrit 35.2 VOL% (35.7-47.0); Hemoglobin 11.7 GM/DL (12.0-16.0); Immature Granulocytes % 0.9 %; Immature Granulocytes Absolute 0.07 #; Lymphocytes # 0.3 10*3/uL (1.4-4.0); Lymphocytes % 3.8 % (21.3-54.2); Mean Corpuscular HGB Conc 33.2 GM/DL (32-36); Mean Corpuscular Hemoglobin 26 PG (27-34); Mean Corpuscular Volume 77.4 FL (87-102); Mean Platelet Volume 11.1 FL (9.6-12.0); Monocytes # 0.3 10*3/uL (0.11-0.8); Monocytes % 3.1 % (1.7-12.7); Neutrophils # 7.4 10*3/uL (1.4-7.4); Neutrophils % 92.1 % (38.7-73.9); Platelet Count 225 T/CUMM (130-400); Red Blood Count 4.55 MC/CUMM (3.8-5.5); Red Cell Distribution Width 13.9 % (9.3-17.3)
[2017-07-12 05:48] LABS: Albumin 2.3 G/DL (3.4-5.0); Bilirubin,Total 0.7 MG/DL (0.2-1.0); Calcium 8.3 MG/DL (8.5-10.1); Osmolality,Calculated 296.1 MOS/KG (273-304); Potassium 4.2 MMOL/L (3.5-5.1); Total Protein 5.1 G/DL (6.4-8.3)
[2017-07-12 05:53] LABS: PT Patient Result 51.4 SECS
[2017-07-12 05:55] LABS: INR 5.2
[2017-07-12 06:34] LABS: Burr Cells 2+; Hypochromasia Slight; Lymphocytes 6 % (20-55); Platelet Estimate Adequate; Segmented Neutrophils 91 % (50-85); Total Cells Counted 100
[2017-07-12] MEDS: PANTOPRAZOLE 40 MG TABLET PO SCH (07:02)
[2017-07-12] MEDS ORDERED: LINACLOTIDE 145 MCG CAPSULE PO SCH (07:30)
[2017-07-12] MEDS ORDERED: PHYTONADIONE 10 MG/1 ML AMP IV ONE (07:36)
[2017-07-12] MEDS: amLODIPine 10 MG TABLET PO SCH (09:36)
[2017-07-12] MEDS: predniSONE 20 MG TABLET PO SCH (09:37)
[2017-07-12] MEDS: ASPIRIN EC 81 MG TABLET PO SCH (09:37)
[2017-07-12] MEDS: HYDROXYCHLOROQUINE 200 MG TABLET PO SCH (09:37)
[2017-07-12] MEDS: CLOPIDOGREL 75 MG TABLET PO SCH (09:37)
[2017-07-12] MEDS: CARVEDILOL 12.5 MG TABLET PO SCH (09:37)
[2017-07-12] MEDS: MYCOPHENOLATE MOFETIL 250 MG CAPSULE PO SCH (09:38)
[2017-07-12] MEDS: ENOXAPARIN 30 MG/0.3 ML SYRINGE SUBCUT SCH (09:49)
[2017-07-12] MEDS: SODIUM CHLORIDE 0.9% 1,000 ML IV SCH (13:20)
[2017-07-12 15:13] VITALS: BP 170/110
== END 2017-07-12 14:15 | disposition left against medical advice (07) | DRG 389 ==
LOC: N.ED 09:05 → N.EDINP 10:30 → N.ICU 11:31 → N.2E 07-08 13:02

== ENCOUNTER 2019-01-05 15:57 | Inpatient (IN) ==
[2019-01-05] MEDS ORDERED: ASPIRIN 325 MG TABLET PO STA (16:05)
[2019-01-05] MEDS ORDERED: niCARdipine 25 MG/10 ML VIAL IV ONE (16:34)
[2019-01-05 16:41] LABS: Basophils % 0.2 % (0.0-0.8); Eosinophils # 0.1 10*3/uL (0.0-0.87); Eosinophils % 0.9 % (0.00-10.9); Hematocrit 35.6 VOL% (35.7-47.0); Hemoglobin 11.4 GM/DL (12.0-16.0); Immature Granulocytes % 0.8 %; Immature Granulocytes Absolute 0.09 #; Lymphocytes % 8.4 % (21.3-54.2); Mean Platelet Volume 9.9 FL (9.6-12.0); Monocytes % 9.2 % (1.7-12.7); Neutrophils % 80.5 % (38.7-73.9); Platelet Count 211 T/CUMM (130-400); Red Blood Count 4.34 MC/CUMM (3.8-5.5); White Blood Count 11.7 T/CUMM (4-12)
[2019-01-05 16:47] LABS: Alanine Aminotransferase 25 U/L (13-56); Albumin 3.5 G/DL (3.4-5.0); Alkaline Phosphatase 49 U/L (45-117); Aspartate Amino Transferase 26 U/L (0-37); Bilirubin,Total < 0.39 MG/DL (0.2-1.0); Blood Urea Nitrogen 89 MG/DL (7-18); Calcium 8.6 MG/DL (8.5-10.1); Estimated Glom Filtration Rate 11 ML/MIN; Glucose 85 MG/DL (74-106); Osmolality,Calculated 315.6 MOS/KG (273-304); Total Protein 6.4 G/DL (6.4-8.3)
[2019-01-05] MEDS: niCARdipine INJ 25 MG in SODIUM CHLORIDE 0.9% 240 ML IV PRN ×2 (16:48→21:30)
[2019-01-05] MEDS ORDERED: MORPHINE 4 MG/1 ML VIAL IV STA (16:51)
[2019-01-05] MEDS ORDERED: ONDANSETRON 4 MG/2 ML VIAL IV STA (16:52)
[2019-01-05] MEDS ORDERED: MORPHINE 4 MG/1 ML VIAL ONE (16:53)
[2019-01-05] MEDS ORDERED: ONDANSETRON 4 MG/2 ML VIAL ONE (16:53)
[2019-01-05] MEDS ORDERED: FUROSEMIDE 40 MG/4 ML VIAL IV STA (17:20)
[2019-01-05] MEDS ORDERED: ALPRAZolam 0.25 MG TABLET PO PRN (17:21)
[2019-01-05] MEDS ORDERED: DOCUSATE SODIUM 100 MG CAPSULE PO PRN (18:53)
[2019-01-05] MEDS ORDERED: ONDANSETRON 4 MG/2 ML VIAL IV PRN (18:53)
[2019-01-05] MEDS ORDERED: PNEUMOCOCCAL VACCINE (13 VALENT) 0.5 ML SYRINGE IM ONE (20:46)
[2019-01-05] MEDS: CLOPIDOGREL 75 MG TABLET PO SCH (21:28)
[2019-01-05] MEDS: FUROSEMIDE 40 MG/4 ML VIAL IV SCH (21:28)
[2019-01-05] MEDS: carvediloL 12.5 MG TABLET PO SCH (21:28)
[2019-01-05] MEDS: MINOXIDIL 10 MG TABLET PO SCH (22:10)
[2019-01-05] MEDS: HEPARIN 5,000 UNIT/1 ML VIAL SUBCUT SCH (22:42)
[2019-01-05] MEDS: SILDENAFIL 25 MG PO SCH (22:44)
[2019-01-05 23:00] LABS: Apearance,Urine CLEAR (Clear); Bilirubin,Urine Negative (Negative); Blood, Urine Negative (Negative); Glucose,Urine (UA) Negative (Negative); Ketones,Urine Negative (Negative); Mucus,Urine Occasional /LPF (Occasional); Nitrite,Urine Negative (Negative); Protein,Urine 100 MG/DL; RBC,Urine 4 /HPF (0-4); Squamous Epithelial Cell,Urine Occasional /HPF (0-10); Urine Color Straw (Yellow); Urine Specific Gravity 1.011 (1.001-1.035); Urine Urobilinogen < 2.0 EU/DL (0.2-1.0); WBC,Urine 2 /HPF (0-6)
[2019-01-06] MEDS: niCARdipine INJ 25 MG in SODIUM CHLORIDE 0.9% 240 ML IV PRN ×5 (00:24→20:20)
[2019-01-06 04:01] LABS: Hematocrit 34.9 VOL% (35.7-47.0); Hemoglobin 10.7 GM/DL (12.0-16.0); Lymphocytes % 8.5 % (21.3-54.2); Mean Corpuscular HGB Conc 30.7 GM/DL (32-36); Mean Corpuscular Volume 82.9 FL (87-102); Mean Platelet Volume 10.4 FL (9.6-12.0); Neutrophils % 77.7 % (38.7-73.9); Platelet Count 179 T/CUMM (130-400); Red Blood Count 4.21 MC/CUMM (3.8-5.5); Red Cell Distribution Width 16.8 % (9.3-17.3); White Blood Count 7.7 T/CUMM (4-12)
[2019-01-06 04:02] LABS: Basophils % 0.1 % (0.0-0.8); Eosinophils # 0.1 10*3/uL (0.0-0.87); Eosinophils % 1.2 % (0.00-10.9); Immature Granulocytes % 1.2 %; Immature Granulocytes Absolute 0.09 #; Lymphocytes # 0.7 10*3/uL (1.4-4.0); Monocytes % 11.3 % (1.7-12.7)
[2019-01-06] MEDS ORDERED: niCARdipine INJ 50 MG in SODIUM CHLORIDE 0.9% 500 ML IV PRN (04:33)
[2019-01-06 04:40] LABS: Calcium 7.7 MG/DL (8.5-10.1); Osmolality,Calculated 318.6 MOS/KG (273-304)
[2019-01-06 04:41] LABS: INR 0.9; PT Patient Result 9.8 SECS (9.6-12.2)
[2019-01-06] MEDS: HEPARIN 5,000 UNIT/1 ML VIAL SUBCUT SCH ×3 (05:49→22:08)
[2019-01-06] MEDS: ACETAMINOPHEN 325 MG TABLET PO PRN ×2 (07:13→20:20)
[2019-01-06] MEDS: predniSONE 20 MG TABLET PO SCH (08:14)
[2019-01-06] MEDS: SERTRALINE 50 MG TABLET PO SCH (08:14)
[2019-01-06] MEDS: LOSARTAN 50 MG TABLET PO SCH (08:14)
[2019-01-06] MEDS: carvediloL 12.5 MG TABLET PO SCH ×2 (08:14→20:13)
[2019-01-06] MEDS: METOPROLOL TARTRATE 25 MG TABLET PO SCH ×2 (08:14→20:14)
[2019-01-06] MEDS: HYDROXYCHLOROQUINE 200 MG TABLET PO SCH (08:14)
[2019-01-06] MEDS: ASPIRIN EC 81 MG TABLET PO SCH (08:15)
[2019-01-06] MEDS: MINOXIDIL 10 MG TABLET PO SCH ×2 (08:15→20:13)
[2019-01-06] MEDS: FUROSEMIDE 40 MG/4 ML VIAL IV SCH ×2 (08:16→20:15)
[2019-01-06] MEDS: SILDENAFIL 25 MG PO SCH ×2 (08:31→20:13)
[2019-01-06] MEDS ORDERED: LABETALOL 20 MG/4 ML SYRINGE IV PRN (19:31)
[2019-01-06] MEDS: ATORVASTATIN 40 MG TABLET PO SCH (20:13)
[2019-01-06] MEDS: CLOPIDOGREL 75 MG TABLET PO SCH (20:14)
[2019-01-07 04:19] LABS: Basophils % 0.1 % (0.0-0.8); Eosinophils % 0.3 % (0.00-10.9); Hematocrit 30.7 VOL% (35.7-47.0); Hemoglobin 9.5 GM/DL (12.0-16.0); Immature Granulocytes Absolute 0.08 #; Lymphocytes # 0.7 10*3/uL (1.4-4.0); Lymphocytes % 8.5 % (21.3-54.2); Mean Corpuscular HGB Conc 30.9 GM/DL (32-36); Mean Corpuscular Volume 81.4 FL (87-102); Mean Platelet Volume 10.6 FL (9.6-12.0); Monocytes % 13.4 % (1.7-12.7); Neutrophils % 76.7 % (38.7-73.9); Platelet Count 181 T/CUMM (130-400); Red Blood Count 3.77 MC/CUMM (3.8-5.5); Red Cell Distribution Width 16.9 % (9.3-17.3)
[2019-01-07 04:33] LABS: Calcium 7.9 MG/DL (8.5-10.1); Osmolality,Calculated 311.1 MOS/KG (273-304)
[2019-01-07] MEDS: HEPARIN 5,000 UNIT/1 ML VIAL SUBCUT SCH ×3 (05:10→21:07)
[2019-01-07] MEDS: ASPIRIN EC 81 MG TABLET PO SCH (08:55)
[2019-01-07] MEDS: SILDENAFIL 25 MG PO SCH ×2 (08:55→20:09)
[2019-01-07] MEDS: MINOXIDIL 10 MG TABLET PO SCH ×2 (08:55→20:09)
[2019-01-07] MEDS: SERTRALINE 50 MG TABLET PO SCH (08:56)
[2019-01-07] MEDS: carvediloL 25 MG TABLET PO SCH ×3 (08:56→20:09)
[2019-01-07] MEDS: predniSONE 20 MG TABLET PO SCH (08:56)
[2019-01-07] MEDS: METOPROLOL TARTRATE 25 MG TABLET PO SCH ×2 (08:56→20:09)
[2019-01-07] MEDS: HYDROXYCHLOROQUINE 200 MG TABLET PO SCH (08:56)
[2019-01-07] MEDS: LOSARTAN 50 MG TABLET PO SCH (08:56)
[2019-01-07] MEDS: FUROSEMIDE 40 MG/4 ML VIAL IV SCH ×2 (08:57→20:10)
[2019-01-07] MEDS ORDERED: MINOXIDIL 2.5 MG TABLET PO ONE (09:27)
[2019-01-07] MEDS: ACETAMINOPHEN 325 MG TABLET PO PRN (09:47)
[2019-01-07 10:28] LABS: Troponin I 0.022 NG/ML (0.00-0.045)
[2019-01-07] MEDS ORDERED: ALUM/MAG/SIMETH/LIDO VISC 1:1 30 ML BOTTLE PO ONE (10:38)
[2019-01-07] MEDS: niCARdipine INJ 25 MG in SODIUM CHLORIDE 0.9% 240 ML IV PRN ×2 (11:01→20:18)
[2019-01-07] MEDS: metOLazone 5 MG TABLET PO SCH (18:31)
[2019-01-07] MEDS: CLOPIDOGREL 75 MG TABLET PO SCH (20:10)
[2019-01-07] MEDS: ATORVASTATIN 40 MG TABLET PO SCH (20:10)
[2019-01-08 05:15] LABS: Hematocrit 31.8 VOL% (35.7-47.0); Hemoglobin 10.2 GM/DL (12.0-16.0); Immature Granulocytes % 0.5 %; Immature Granulocytes Absolute 0.04 #; Lymphocytes # 0.7 10*3/uL (1.4-4.0); Lymphocytes % 8.8 % (21.3-54.2); Mean Corpuscular HGB Conc 32.1 GM/DL (32-36); Mean Corpuscular Volume 79.9 FL (87-102); Mean Platelet Volume 11.3 FL (9.6-12.0); Monocytes % 9.7 % (1.7-12.7); Platelet Count 190 T/CUMM (130-400); Red Blood Count 3.98 MC/CUMM (3.8-5.5); Red Cell Distribution Width 16.6 % (9.3-17.3); White Blood Count 8.1 T/CUMM (4-12)
[2019-01-08 05:39] LABS: Calcium 8.4 MG/DL (8.5-10.1); Osmolality,Calculated 302.7 MOS/KG (273-304)
[2019-01-08] MEDS: HEPARIN 5,000 UNIT/1 ML VIAL SUBCUT SCH ×3 (06:36→22:27)
[2019-01-08] MEDS: MINOXIDIL 10 MG TABLET PO SCH (08:47)
[2019-01-08] MEDS: SILDENAFIL 25 MG PO SCH ×2 (08:47→22:53)
[2019-01-08] MEDS: FUROSEMIDE 40 MG/4 ML VIAL IV SCH ×2 (08:47→22:26)
[2019-01-08] MEDS: predniSONE 20 MG TABLET PO SCH (08:48)
[2019-01-08] MEDS: METOPROLOL TARTRATE 25 MG TABLET PO SCH (08:48)
[2019-01-08] MEDS: metOLazone 5 MG TABLET PO SCH (08:48)
[2019-01-08] MEDS: HYDROXYCHLOROQUINE 200 MG TABLET PO SCH (08:48)
[2019-01-08] MEDS: ASPIRIN EC 81 MG TABLET PO SCH (08:49)
[2019-01-08] MEDS: carvediloL 25 MG TABLET PO SCH ×3 (08:49→22:26)
[2019-01-08] MEDS: LOSARTAN 50 MG TABLET PO SCH (08:49)
[2019-01-08] MEDS: SERTRALINE 50 MG TABLET PO SCH (08:49)
[2019-01-08] MEDS: CLOPIDOGREL 75 MG TABLET PO SCH (22:25)
[2019-01-08] MEDS: ATORVASTATIN 40 MG TABLET PO SCH (22:26)
[2019-01-08] MEDS ORDERED: MINOXIDIL 2.5 MG TABLET PO SCH (22:30)
[2019-01-09 04:45] LABS: Basophils % 0.1 % (0.0-0.8); Eosinophils % 0.2 % (0.00-10.9); Hematocrit 31.7 VOL% (35.7-47.0); Hemoglobin 10.1 GM/DL (12.0-16.0); Immature Granulocytes % 1.5 %; Immature Granulocytes Absolute 0.14 #; Lymphocytes # 0.9 10*3/uL (1.4-4.0); Lymphocytes % 9.6 % (21.3-54.2); Mean Corpuscular HGB Conc 31.9 GM/DL (32-36); Mean Corpuscular Volume 80.1 FL (87-102); Mean Platelet Volume 11.2 FL (9.6-12.0); Monocytes % 13.4 % (1.7-12.7); Neutrophils % 75.2 % (38.7-73.9); Platelet Count 206 T/CUMM (130-400); Red Blood Count 3.96 MC/CUMM (3.8-5.5); Red Cell Distribution Width 16.3 % (9.3-17.3); White Blood Count 9.3 T/CUMM (4-12)
[2019-01-09 04:54] LABS: Calcium 8.7 MG/DL (8.5-10.1); Osmolality,Calculated 310.1 MOS/KG (273-304)
[2019-01-09] MEDS: HEPARIN 5,000 UNIT/1 ML VIAL SUBCUT SCH (07:03)
[2019-01-09 07:28] VITALS: BP 161/105
[2019-01-09] MEDS ORDERED: POLYETHYLENE GLYCOL POWDER 17 GM PACK PO SCH (10:00)
[2019-01-09] MEDS ORDERED: DOCUSATE SODIUM 100 MG CAPSULE PO SCH (10:00)
[2019-01-09] MEDS: LOSARTAN 50 MG TABLET PO SCH (10:06)
[2019-01-09] MEDS: ASPIRIN EC 81 MG TABLET PO SCH (10:06)
[2019-01-09] MEDS: carvediloL 25 MG TABLET PO SCH (10:06)
[2019-01-09] MEDS: HYDROXYCHLOROQUINE 200 MG TABLET PO SCH (10:06)
[2019-01-09] MEDS: predniSONE 20 MG TABLET PO SCH (10:06)
[2019-01-09] MEDS: SERTRALINE 50 MG TABLET PO SCH (10:07)
[2019-01-09] MEDS: metOLazone 5 MG TABLET PO SCH (10:07)
[2019-01-09] MEDS: SILDENAFIL 25 MG PO SCH (10:07)
[2019-01-09] MEDS: FUROSEMIDE 40 MG/4 ML VIAL IV SCH (10:08)
== END 2019-01-09 12:05 | disposition home or self-care (01) | DRG 304 ==
LOC: EDBD → EDUNIT# → N.ED 15:57 → N.EDINP 18:51 → N.CC 20:02 → N.5E 01-08 13:06
PROVIDERS: ADMIT Hospitalist; ATTEND Hospitalist

== ENCOUNTER 2019-03-25 11:59 | Inpatient (IN) ==
[2019-03-25] MEDS ORDERED: hydrALAZINE 20 MG/1 ML VIAL ONE ×2 (12:13→12:41)
[2019-03-25] MEDS ORDERED: methylPREDNISolone SOD SUC 125 MG/2 ML VIAL ONE (12:14)
[2019-03-25] MEDS ORDERED: FUROSEMIDE 100 MG/10 ML VIAL ONE (12:14)
[2019-03-25] MEDS ORDERED: FUROSEMIDE 100 MG/10 ML VIAL IV STA (12:19)
[2019-03-25] MEDS ORDERED: methylPREDNISolone SOD SUC 125 MG/2 ML VIAL IV STA (12:19)
[2019-03-25] MEDS ORDERED: ONDANSETRON 4 MG/2 ML VIAL IV STA ×2 (12:19→14:13)
[2019-03-25] MEDS ORDERED: MORPHINE 4 MG/1 ML VIAL IV STA ×2 (12:19→14:13)
[2019-03-25] MEDS ORDERED: MORPHINE 4 MG/1 ML VIAL ONE (12:22)
[2019-03-25 12:29] LABS: Basophils % 0.3 % (0.0-0.8); Eosinophils # 0.1 10*3/uL (0.0-0.87); Eosinophils % 0.5 % (0.00-10.9); Hematocrit 33.3 VOL% (35.7-47.0); Hemoglobin 10.6 GM/DL (12.0-16.0); Immature Granulocytes % 0.7 %; Immature Granulocytes Absolute 0.08 #; Lymphocytes # 1.2 10*3/uL (1.4-4.0); Lymphocytes % 10.4 % (21.3-54.2); Mean Corpuscular HGB Conc 31.8 GM/DL (32-36); Mean Platelet Volume 10.5 FL (9.6-12.0); Monocytes % 9.4 % (1.7-12.7); Neutrophils % 78.7 % (38.7-73.9); Platelet Count 173 T/CUMM (130-400); Red Blood Count 4.06 MC/CUMM (3.8-5.5); Red Cell Distribution Width 15.2 % (9.3-17.3)
[2019-03-25] MEDS ORDERED: ALBUTEROL 2.5 MG/3 ML NEB RESP TX SCH (12:30)
[2019-03-25 12:38] LABS: INR 0.9
[2019-03-25 12:44] LABS: ABG Base Excess -0.7 MMOL/L (-2.5-2.5); ABG HCO3 23.9 MMOL/L (20-26); ABG Oxygen Saturation 99.4 % (95-100); ABG PCO2 35.2 MM HG (35-48); ABG PH 7.427 (7.35-7.45)
[2019-03-25 12:54] LABS: Albumin 3.7 G/DL (3.4-5.0); Bilirubin,Total 0.4 MG/DL (0.2-1.0); Calcium 8.8 MG/DL (8.5-10.1); Total Protein 6.6 G/DL (6.4-8.3)
[2019-03-25] MEDS ORDERED: PIPERACILLIN/TAZOBACTAM 3,375 MG in SODIUM CHLORIDE 0.9% 100 ML IV STA (13:03)
[2019-03-25 13:05] LABS: Apearance,Urine CLEAR (Clear); Bacteria,Urine Occasional /HPF (Few); Bilirubin,Urine Negative (Negative); Blood, Urine Small mg/dL (Negative); Glucose,Urine (UA) Negative (Negative); Ketones,Urine Negative (Negative); Nitrite,Urine Negative (Negative); Protein,Urine 100 MG/DL; RBC,Urine 3 /HPF (0-4); Urine Color Straw (Yellow); Urine Urobilinogen < 2.0 EU/DL (0.2-1.0); WBC,Urine 1 /HPF (0-6)
[2019-03-25] MEDS ORDERED: hydrALAZINE 20 MG/1 ML VIAL IV STA ×2 (13:05)
[2019-03-25] MEDS ORDERED: METOPROLOL TARTRATE 5 MG/5 ML VIAL IV ONE (13:49)
[2019-03-25] MEDS ORDERED: LORazepam 2 MG/1 ML VIAL ONE (13:50)
[2019-03-25] MEDS ORDERED: LORazepam 2 MG/1 ML VIAL IV STA (14:13)
[2019-03-25] MEDS ORDERED: METOPROLOL TARTRATE 5 MG/5 ML VIAL IV STA (14:13)
[2019-03-25] MEDS ORDERED: ACETAMINOPHEN 500 MG TABLET PO STA (14:14)
[2019-03-25] MEDS ORDERED: niCARdipine INJ 25 MG in SODIUM CHLORIDE 0.9% 240 ML IV PRN (14:37)
[2019-03-25] MEDS ORDERED: ENOXAPARIN 30 MG/0.3 ML SYRINGE SUBCUT SCH (15:00)
[2019-03-25 15:39] LABS: Risk Ratio 3.3; Thyroid Stimulating Hormone 2.47 uIU/ml (0.358-3.74); VLDL CHOLESTEROL 44.4 MG/DL
[2019-03-25] MEDS ORDERED: HYDROCORTISONE 100 MG VIAL IV STA (15:43)
[2019-03-25] MEDS: niCARdipine INJ 25 MG in SODIUM CHLORIDE 0.9% 240 ML IV PRN ×2 (15:55→18:31)
[2019-03-25] MEDS: FUROSEMIDE 40 MG/4 ML VIAL IV SCH (16:51)
[2019-03-25] MEDS ORDERED: ETOMIDATE 20 MG/10 ML VIAL IV ONE (16:58)
[2019-03-25] MEDS ORDERED: VECURONIUM 10 MG VIAL IV ONE (17:01)
[2019-03-25] MEDS: methylPREDNISolone SOD SUC 40 MG/1 ML VIAL IV SCH (17:17)
[2019-03-25] MEDS ORDERED: LABETALOL 20 MG/4 ML SYRINGE IV PRN (17:45)
[2019-03-25] MEDS ORDERED: cloNIDine 0.3 MG/24 HR PATCH TRANSDERM SCH (18:00)
[2019-03-25] MEDS: HEPARIN 5,000 UNIT/1 ML VIAL SUBCUT SCH (18:09)
[2019-03-25] MEDS: cefTRIAXone 2,000 MG in SYRINGE 1 EACH IV SCH (19:58)
[2019-03-25] MEDS ORDERED: niCARdipine INJ 50 MG in SODIUM CHLORIDE 0.9% 480 ML IV PRN (20:04)
[2019-03-25] MEDS: AZITHROMYCIN INJ 500 MG in SODIUM CHLORIDE 0.9% 250 ML IV SCH (20:07)
[2019-03-25] MEDS: ALBUTEROL/IPRATROPIUM 3 ML NEB RESP TX SCH (20:21)
[2019-03-25] MEDS: ONDANSETRON 4 MG/2 ML VIAL IV PRN (20:54)
[2019-03-25] MEDS ORDERED: ONDANSETRON 4 MG/2 ML VIAL ONE (20:56)
[2019-03-25] MEDS: carvediloL 25 MG TABLET PER TUBE SCH (22:44)
[2019-03-25] MEDS: minoxidiL 2.5 MG TABLET PER TUBE SCH (22:45)
[2019-03-25 23:12] LABS: Hepatitis B Core IgM Quant < 0.05 Index; Hepatitis B Surface Ag Quant 0.18 Index; Hepatitis B Surface Ag Result Negative (Negative); Hepatitis C Virus Ab Quant 0.14 Index; Hepatitis C Virus Ab Result Negative (Negative)
[2019-03-26] MEDS: ALBUTEROL/IPRATROPIUM 3 ML NEB RESP TX SCH ×6 (00:19→21:04)
[2019-03-26] MEDS: methylPREDNISolone SOD SUC 40 MG/1 ML VIAL IV SCH ×4 (01:45→17:25)
[2019-03-26] MEDS: HEPARIN 5,000 UNIT/1 ML VIAL SUBCUT SCH ×3 (03:13→17:25)
[2019-03-26 04:37] LABS: ABG Base Excess -3.1 MMOL/L (-2.5-2.5); ABG HCO3 20.3 MMOL/L (20-26); ABG Oxygen Saturation 98.8 % (95-100); ABG PCO2 30.7 MM HG (35-48); ABG PH 7.439 (7.35-7.45); ABG PO2 244.8 MM HG (80-95); ABG TCO2 21.3 MMOL/L (23-27); Pt O2 Delivery Device Ventilator
[2019-03-26 06:24] LABS: Basophils % 0.1 % (0.0-0.8); Hematocrit 31.2 VOL% (35.7-47.0); Hemoglobin 9.8 GM/DL (12.0-16.0); Immature Granulocytes % 0.5 %; Immature Granulocytes Absolute 0.08 #; Lymphocytes # 0.4 10*3/uL (1.4-4.0); Lymphocytes % 2.3 % (21.3-54.2); Mean Corpuscular HGB Conc 31.4 GM/DL (32-36); Mean Corpuscular Volume 81.7 FL (87-102); Mean Platelet Volume 11.2 FL (9.6-12.0); Neutrophils % 95.1 % (38.7-73.9); Platelet Count 154 T/CUMM (130-400); Red Blood Count 3.82 MC/CUMM (3.8-5.5); White Blood Count 17.5 T/CUMM (4-12)
[2019-03-26 06:52] LABS: Bilirubin,Total 0.4 MG/DL (0.2-1.0); Calcium 8.3 MG/DL (8.5-10.1); Osmolality,Calculated 315.4 MOS/KG (273-304); Total Protein 6.3 G/DL (6.4-8.3)
[2019-03-26 07:28] LABS: Band Neutrophils 1 % (0-10); Segmented Neutrophils 99 % (50-85); Total Cells Counted 100
[2019-03-26 07:29] LABS: Hypochromasia 2+
[2019-03-26 07:30] LABS: Ovalocytes Slight; Platelet Estimate Adequate; Polychromasia Slight
[2019-03-26] MEDS: FUROSEMIDE 40 MG/4 ML VIAL IV SCH ×2 (11:01→16:59)
[2019-03-26] MEDS: carvediloL 25 MG TABLET PER TUBE SCH ×3 (11:02→22:31)
[2019-03-26] MEDS: predniSONE 10 MG TABLET PER TUBE SCH (11:02)
[2019-03-26] MEDS: minoxidiL 2.5 MG TABLET PER TUBE SCH ×2 (11:02→22:31)
[2019-03-26 16:13] LABS: Apearance,Urine Slightly Hazy (Clear); Bacteria,Urine Occasional /HPF (Few); Bilirubin,Urine Negative (Negative); Blood, Urine Small mg/dL (Negative); Glucose,Urine (UA) Negative (Negative); Hyaline Casts,Urine 3 /LPF (0-3); Ketones,Urine Negative (Negative); Nitrite,Urine Negative (Negative); Protein,Urine Negative; RBC,Urine 4 /HPF (0-4); Urine Color Yellow (Yellow); Urine Urobilinogen < 2.0 EU/DL (0.2-1.0); WBC,Urine 2 /HPF (0-6)
[2019-03-26] MEDS ORDERED: HEPARIN 10,000 UNIT/10 ML VIAL IV PRN (17:48)
[2019-03-26] MEDS: cefTRIAXone 2,000 MG in SYRINGE 1 EACH IV SCH (19:47)
[2019-03-26] MEDS: AZITHROMYCIN INJ 500 MG in SODIUM CHLORIDE 0.9% 250 ML IV SCH (20:04)
[2019-03-27] MEDS: methylPREDNISolone SOD SUC 40 MG/1 ML VIAL IV SCH ×4 (00:59→17:53)
[2019-03-27] MEDS: HEPARIN 5,000 UNIT/1 ML VIAL SUBCUT SCH ×3 (01:04→17:52)
[2019-03-27] MEDS: ALBUTEROL/IPRATROPIUM 3 ML NEB RESP TX SCH ×6 (01:35→20:49)
[2019-03-27 03:53] LABS: ABG Base Excess -1.5 MMOL/L (-2.5-2.5); ABG HCO3 23.2 MMOL/L (20-26); ABG PCO2 36.9 MM HG (35-48); ABG PH 7.402 (7.35-7.45); ABG TCO2 21.2 MMOL/L (23-27); Pt O2 Delivery Device Ventilator
[2019-03-27] MEDS: ONDANSETRON 4 MG/2 ML VIAL IV PRN (04:05)
[2019-03-27 05:16] LABS: Basophils % 0.1 % (0.0-0.8); Hematocrit 27.6 VOL% (35.7-47.0); Hemoglobin 8.8 GM/DL (12.0-16.0); Immature Granulocytes % 0.5 %; Immature Granulocytes Absolute 0.06 #; Lymphocytes # 0.3 10*3/uL (1.4-4.0); Lymphocytes % 2.5 % (21.3-54.2); Mean Corpuscular HGB Conc 31.9 GM/DL (32-36); Mean Corpuscular Volume 80.5 FL (87-102); Mean Platelet Volume 10.8 FL (9.6-12.0); Monocytes % 2.6 % (1.7-12.7); Neutrophils % 94.3 % (38.7-73.9); Platelet Count 133 T/CUMM (130-400); Red Blood Count 3.43 MC/CUMM (3.8-5.5); White Blood Count 12.1 T/CUMM (4-12)
[2019-03-27 05:43] LABS: Alanine Aminotransferase 35 U/L (13-56); Albumin 2.7 G/DL (3.4-5.0); Alkaline Phosphatase 38 U/L (45-117); Aspartate Amino Transferase 13 U/L (0-37); Bilirubin,Total < 0.39 MG/DL (0.2-1.0); Blood Urea Nitrogen 66 MG/DL (7-18); Calcium 8.1 MG/DL (8.5-10.1); Estimated Glom Filtration Rate 11 ML/MIN; Glucose 126 MG/DL (74-106); Total Protein 5.8 G/DL (6.4-8.3)
[2019-03-27 06:30] LABS: Anisocytosis 1+; Band Neutrophils 11 % (0-10); Burr Cells Few; Lymphocytes 2 % (20-55); Platelet Estimate Adequate; Poikilocytosis 1+; Segmented Neutrophils 86 % (50-85); Total Cells Counted 100
[2019-03-27] MEDS: carvediloL 25 MG TABLET PER TUBE SCH ×3 (08:53→21:05)
[2019-03-27] MEDS: FUROSEMIDE 40 MG/4 ML VIAL IV SCH (08:53)
[2019-03-27] MEDS: minoxidiL 2.5 MG TABLET PER TUBE SCH ×2 (08:53→21:09)
[2019-03-27] MEDS: predniSONE 10 MG TABLET PER TUBE SCH (08:53)
[2019-03-27 10:17] LABS: ABG Base Excess -1.4 MMOL/L (-2.5-2.5); ABG HCO3 23.2 MMOL/L (20-26); ABG Oxygen Saturation 99.5 % (95-100); ABG PCO2 35.4 MM HG (35-48); ABG PH 7.415 (7.35-7.45); ABG TCO2 20.6 MMOL/L (23-27); Allen Test Positive; Pt O2 Delivery Device Ventilator
[2019-03-27] MEDS ORDERED: PHENOL 1.4% THROAT SPRAY 177 ML BOTTLE PO PRN (10:25)
[2019-03-27] MEDS: cefTRIAXone 2,000 MG in SYRINGE 1 EACH IV SCH (21:04)
[2019-03-27] MEDS: AZITHROMYCIN INJ 500 MG in SODIUM CHLORIDE 0.9% 250 ML IV SCH (21:04)
[2019-03-28] MEDS: ALBUTEROL/IPRATROPIUM 3 ML NEB RESP TX SCH ×6 (00:29→19:47)
[2019-03-28] MEDS: methylPREDNISolone SOD SUC 40 MG/1 ML VIAL IV SCH ×3 (02:01→17:21)
[2019-03-28] MEDS: HEPARIN 5,000 UNIT/1 ML VIAL SUBCUT SCH ×3 (02:04→17:24)
[2019-03-28 04:38] LABS: ABG Base Excess -2.9 MMOL/L (-2.5-2.5); ABG HCO3 21.2 MMOL/L (20-26); ABG PCO2 33.8 MM HG (35-48); ABG PH 7.415 (7.35-7.45); ABG PO2 128.8 MM HG (80-95); ABG TCO2 22.2 MMOL/L (23-27); Allen Test Positive
[2019-03-28 05:59] LABS: Hematocrit 25.9 VOL% (35.7-47.0); Hemoglobin 8.3 GM/DL (12.0-16.0); Immature Granulocytes % 0.6 %; Immature Granulocytes Absolute 0.06 #; Lymphocytes # 0.2 10*3/uL (1.4-4.0); Lymphocytes % 1.9 % (21.3-54.2); Mean Corpuscular Volume 80.7 FL (87-102); Mean Platelet Volume 11.7 FL (9.6-12.0); Monocytes % 2.8 % (1.7-12.7); Neutrophils % 94.7 % (38.7-73.9); Platelet Count 145 T/CUMM (130-400); Red Blood Count 3.21 MC/CUMM (3.8-5.5); Red Cell Distribution Width 14.9 % (9.3-17.3); White Blood Count 10.5 T/CUMM (4-12)
[2019-03-28 06:24] LABS: Albumin 2.8 G/DL (3.4-5.0); Bilirubin,Total 0.9 MG/DL (0.2-1.0); Osmolality,Calculated 306.3 MOS/KG (273-304); Total Protein 5.9 G/DL (6.4-8.3)
[2019-03-28 06:41] LABS: Band Neutrophils 1 % (0-10); Hypochromasia 1+; Lymphocytes 3 % (20-55); Segmented Neutrophils 95 % (50-85); Total Cells Counted 100
[2019-03-28 06:42] LABS: Microcytosis Slight; Ovalocytes Few
[2019-03-28 06:43] LABS: Platelet Estimate Adequate; Target Cells Slight
[2019-03-28] MEDS: predniSONE 10 MG TABLET PER TUBE SCH (12:57)
[2019-03-28] MEDS: carvediloL 25 MG TABLET PER TUBE SCH ×3 (13:01→22:06)
[2019-03-28] MEDS: minoxidiL 2.5 MG TABLET PER TUBE SCH ×2 (15:24→22:05)
[2019-03-28] MEDS: ATORVASTATIN 40 MG TABLET PO SCH (22:06)
[2019-03-28] MEDS: cefTRIAXone 2,000 MG in SYRINGE 1 EACH IV SCH (22:07)
[2019-03-29] MEDS: ALBUTEROL/IPRATROPIUM 3 ML NEB RESP TX SCH ×7 (00:07→23:12)
[2019-03-29] MEDS: HEPARIN 5,000 UNIT/1 ML VIAL SUBCUT SCH ×3 (03:03→17:17)
[2019-03-29 03:27] LABS: ABG Base Excess 1.5 MMOL/L (-2.5-2.5); ABG HCO3 25.8 MMOL/L (20-26); ABG Oxygen Saturation 96.3 % (95-100); ABG PCO2 35.9 MM HG (35-48); ABG PH 7.455 (7.35-7.45); ABG PO2 76.8 MM HG (80-95); ABG TCO2 23.3 MMOL/L (23-27)
[2019-03-29 04:48] LABS: Basophils % 0.1 % (0.0-0.8); Hematocrit 26.6 VOL% (35.7-47.0); Hemoglobin 8.5 GM/DL (12.0-16.0); Immature Granulocytes % 0.9 %; Immature Granulocytes Absolute 0.07 #; Lymphocytes # 0.4 10*3/uL (1.4-4.0); Lymphocytes % 5.2 % (21.3-54.2); Mean Corpuscular Volume 80.4 FL (87-102); Mean Platelet Volume 11.4 FL (9.6-12.0); Monocytes % 7.1 % (1.7-12.7); Neutrophils % 86.7 % (38.7-73.9); Platelet Count 123 T/CUMM (130-400); Red Blood Count 3.31 MC/CUMM (3.8-5.5); Red Cell Distribution Width 14.6 % (9.3-17.3); White Blood Count 8.2 T/CUMM (4-12)
[2019-03-29 05:13] LABS: Albumin 2.7 G/DL (3.4-5.0); Bilirubin,Total 0.9 MG/DL (0.2-1.0); Calcium 7.7 MG/DL (8.5-10.1); Total Protein 5.8 G/DL (6.4-8.3)
[2019-03-29] MEDS: methylPREDNISolone SOD SUC 40 MG/1 ML VIAL IV SCH ×2 (05:43→17:17)
[2019-03-29] MEDS ORDERED: minoxidiL 10 MG TABLET PO SCH (08:16)
[2019-03-29] MEDS: predniSONE 10 MG TABLET PO SCH (09:31)
[2019-03-29] MEDS: amLODIPine 5 MG TABLET PO SCH (09:31)
[2019-03-29] MEDS: ASPIRIN EC 81 MG TABLET PO SCH (09:31)
[2019-03-29] MEDS: carvediloL 25 MG TABLET PO SCH ×3 (09:35→22:11)
[2019-03-29] MEDS: minoxidiL 2.5 MG TABLET PO SCH (22:11)
[2019-03-29] MEDS: cefTRIAXone 2,000 MG in SYRINGE 1 EACH IV SCH (22:11)
[2019-03-29] MEDS: ATORVASTATIN 40 MG TABLET PO SCH (22:11)
[2019-03-30] MEDS: HEPARIN 5,000 UNIT/1 ML VIAL SUBCUT SCH ×2 (02:31→10:15)
[2019-03-30] MEDS: ALBUTEROL/IPRATROPIUM 3 ML NEB RESP TX SCH ×4 (03:23→15:13)
[2019-03-30] MEDS: methylPREDNISolone SOD SUC 40 MG/1 ML VIAL IV SCH (04:20)
[2019-03-30 04:42] LABS: Hematocrit 26.4 VOL% (35.7-47.0); Hemoglobin 8.4 GM/DL (12.0-16.0); Immature Granulocytes % 1.5 %; Lymphocytes # 0.5 10*3/uL (1.4-4.0); Mean Corpuscular HGB Conc 31.8 GM/DL (32-36); Mean Corpuscular Volume 80.2 FL (87-102); Mean Platelet Volume 10.9 FL (9.6-12.0); Monocytes % 10.5 % (1.7-12.7); Platelet Count 120 T/CUMM (130-400); Red Blood Count 3.29 MC/CUMM (3.8-5.5); Red Cell Distribution Width 14.2 % (9.3-17.3); White Blood Count 6.5 T/CUMM (4-12)
[2019-03-30 05:16] LABS: Alanine Aminotransferase 18 U/L (13-56); Albumin 2.7 G/DL (3.4-5.0); Alkaline Phosphatase 37 U/L (45-117); Aspartate Amino Transferase 9 U/L (0-37); Bilirubin,Total < 0.39 MG/DL (0.2-1.0); Blood Urea Nitrogen 33 MG/DL (7-18); Calcium 7.9 MG/DL (8.5-10.1); Estimated Glom Filtration Rate 13 ML/MIN; Glucose 98 MG/DL (74-106); Osmolality,Calculated 283.5 MOS/KG (273-304)
[2019-03-30] MEDS ORDERED: BUPIVACAINE 0.25% /EPI 10 ML VIAL ONE (06:19)
[2019-03-30] MEDS ORDERED: LIDOCAINE 1%/EPI INJ 20 ML VIAL ONE (06:19)
[2019-03-30] MEDS ORDERED: HEPARIN 5,000 UNIT/1 ML VIAL ONE (06:19)
[2019-03-30] MEDS ORDERED: ceFAZolin 1,000 MG VIAL ONE (07:32)
[2019-03-30] MEDS ORDERED: fentaNYL 100 MCG/2 ML VIAL ONE (08:02)
[2019-03-30] MEDS ORDERED: LIDOCAINE 2% 5 ML VIAL ONE (08:02)
[2019-03-30] MEDS ORDERED: MIDAZOLAM 2 MG/2 ML VIAL ONE (08:02)
[2019-03-30] MEDS ORDERED: propofoL 200 MG/20 ML VIAL IV ONE (08:02)
[2019-03-30] MEDS ORDERED: ONDANSETRON 4 MG/2 ML VIAL ONE (08:02)
[2019-03-30] MEDS: minoxidiL 2.5 MG TABLET PO SCH (10:15)
[2019-03-30] MEDS: predniSONE 10 MG TABLET PO SCH (10:16)
[2019-03-30] MEDS: carvediloL 25 MG TABLET PO SCH ×2 (10:17→15:24)
[2019-03-30] MEDS: ASPIRIN EC 81 MG TABLET PO SCH (10:17)
[2019-03-30] MEDS: amLODIPine 5 MG TABLET PO SCH (10:17)
[2019-03-30 16:26] VITALS: BP 141/68
== END 2019-03-30 17:45 | disposition home or self-care (01) | DRG 208 ==
LOC: N.ED 11:59 → N.EDINP 14:28 → SUATTDRO 14:28 → N.CC 16:23 → N.5E 03-28 18:29
PROVIDERS: ADMIT Hospitalist; ATTEND Internal Medicine Geriatric Medicine

== ENCOUNTER 2019-07-07 05:04 | Inpatient (IN) ==
[2019-07-07] MEDS ORDERED: ONDANSETRON 4 MG/2 ML VIAL IV STA (05:08)
[2019-07-07] MEDS ORDERED: PIPERACILLIN/TAZOBACTAM 3,375 MG in SODIUM CHLORIDE 0.9% 100 ML IV STA (05:08)
[2019-07-07] MEDS ORDERED: methylPREDNISolone SOD SUC 125 MG/2 ML VIAL IV STA (05:08)
[2019-07-07] MEDS ORDERED: hydrALAZINE 20 MG/1 ML VIAL IV STA ×2 (05:49→06:40)
[2019-07-07] MEDS ORDERED: AZITHROMYCIN 250 MG TABLET PO STA (05:52)
[2019-07-07 06:16] LABS: Basophils % 0.1 % (0.0-0.8); Eosinophils % 0.3 % (0.00-10.9); Hematocrit 41.2 VOL% (35.7-47.0); Hemoglobin 12.9 GM/DL (12.0-16.0); Immature Granulocytes % 0.3 %; Immature Granulocytes Absolute 0.02 #; Lymphocytes % 13.9 % (21.3-54.2); Mean Corpuscular HGB Conc 31.3 GM/DL (32-36); Mean Corpuscular Volume 82.4 FL (87-102); Mean Platelet Volume 10.6 FL (9.6-12.0); Neutrophils % 64.4 % (38.7-73.9); Platelet Count 183 T/CUMM (130-400); Red Cell Distribution Width 16.8 % (9.3-17.3); White Blood Count 7.1 T/CUMM (4-12)
[2019-07-07] MEDS ORDERED: VANCOMYCIN INJ 1,000 MG in SODIUM CHLORIDE 0.9% 250 ML IV STA (06:16)
[2019-07-07 06:32] LABS: PT Patient Result 10.3 SECS (9.8-11.9)
[2019-07-07 06:47] LABS: Alanine Aminotransferase 20 U/L (13-56); Albumin 3.7 G/DL (3.4-5.0); Alkaline Phosphatase 52 U/L (45-117); Aspartate Amino Transferase 16 U/L (0-37); Bilirubin,Total < 0.39 MG/DL (0.2-1.0); Blood Urea Nitrogen 96 MG/DL (7-18); Glucose 77 MG/DL (74-106); Osmolality,Calculated 303.7 MOS/KG (273-304); Total Protein 7.6 G/DL (6.4-8.3)
[2019-07-07 06:48] LABS: Estimated Glom Filtration Rate 0 ML/MIN
[2019-07-07 06:54] LABS: Atypical Lymphocytes Few; Eosinophils 1 % (0-10); Hypochromasia 1+; Lymphocytes 16 % (20-55); Microcytosis 1+; Ovalocytes Slight; Segmented Neutrophils 64 % (50-85); Total Cells Counted 100
[2019-07-07 06:55] LABS: Acanthocytes Few; Platelet Estimate Adequate
[2019-07-07 08:36] LABS: Ferritin 260.3 ng/ml (8-252)
[2019-07-07] MEDS ORDERED: LORazepam 2 MG/1 ML VIAL IV STA (08:36)
[2019-07-07] MEDS ORDERED: LORazepam 2 MG/1 ML VIAL ONE (08:38)
[2019-07-07] MEDS ORDERED: hydrALAZINE 20 MG/1 ML VIAL IV PRN (08:58)
[2019-07-07] MEDS ORDERED: ACETAMINOPHEN 325 MG TABLET PO PRN (08:58)
[2019-07-07] MEDS ORDERED: ONDANSETRON 4 MG/2 ML VIAL IV PRN (08:58)
[2019-07-07] MEDS ORDERED: GLUCAGON 1 MG VIAL IM PRN (08:58)
[2019-07-07] MEDS ORDERED: DEXTROSE 50% 25 GM/50 ML VIAL IV PRN (08:58)
[2019-07-07] MEDS ORDERED: ZALEPLON 5 MG CAPSULE PO PRN (08:58)
[2019-07-07] MEDS ORDERED: DEXTROSE 10% 250 ML BAG IV PRN (09:09)
[2019-07-07] MEDS ORDERED: VANCOMYCIN INJ 500 MG in SODIUM CHLORIDE 0.9% 100 ML IV PRN (09:17)
[2019-07-07 09:28] LABS: Thyroid Stimulating Hormone 0.426 uIU/ml (0.358-3.74)
[2019-07-07] MEDS ORDERED: diphenhydrAMINE CAP 25 MG CAPSULE PO PRN (10:18)
[2019-07-07] MEDS ORDERED: HYDROXYCHLOROQUINE 200 MG TABLET PO ONE (12:00)
[2019-07-07] MEDS: HEPARIN 5,000 UNIT/1 ML VIAL SUBCUT SCH (12:53)
[2019-07-07] MEDS: carvediloL 25 MG TABLET PO SCH ×2 (15:44→20:31)
[2019-07-07] MEDS: CLOPIDOGREL 75 MG TABLET PO SCH (20:31)
[2019-07-07] MEDS: ATORVASTATIN 40 MG TABLET PO SCH (20:31)
[2019-07-08] MEDS: HEPARIN 5,000 UNIT/1 ML VIAL SUBCUT SCH ×3 (00:07→23:56)
[2019-07-08 07:11] LABS: Basophils % 0.3 % (0.0-0.8); Eosinophils % 0.2 % (0.00-10.9); Hematocrit 39.5 VOL% (35.7-47.0); Hemoglobin 12.5 GM/DL (12.0-16.0); Immature Granulocytes % 0.5 %; Immature Granulocytes Absolute 0.03 #; Lymphocytes % 16.9 % (21.3-54.2); Mean Corpuscular HGB Conc 31.6 GM/DL (32-36); Mean Corpuscular Volume 80.4 FL (87-102); Mean Platelet Volume 11.9 FL (9.6-12.0); Monocytes % 14.4 % (1.7-12.7); Neutrophils % 67.7 % (38.7-73.9); Platelet Count 191 T/CUMM (130-400); Red Blood Count 4.91 MC/CUMM (3.8-5.5); Red Cell Distribution Width 17.1 % (9.3-17.3)
[2019-07-08 07:36] LABS: Albumin 3.1 G/DL (3.4-5.0); Bilirubin,Total 0.4 MG/DL (0.2-1.0); Calcium 8.1 MG/DL (8.5-10.1); Osmolality,Calculated 294.8 MOS/KG (273-304); Total Protein 6.5 G/DL (6.4-8.3)
[2019-07-08] MEDS: amLODIPine 5 MG TABLET PO SCH (08:39)
[2019-07-08] MEDS: PANTOPRAZOLE 40 MG TABLET PO SCH (08:39)
[2019-07-08] MEDS: LOSARTAN 50 MG TABLET PO SCH (08:39)
[2019-07-08] MEDS: CALCIUM (CARBONATE) 600 MG TABLET PO SCH (08:39)
[2019-07-08] MEDS: ASPIRIN EC 81 MG TABLET PO SCH (08:39)
[2019-07-08] MEDS: carvediloL 25 MG TABLET PO SCH ×3 (08:39→20:28)
[2019-07-08] MEDS: SERTRALINE 50 MG TABLET PO SCH (08:40)
[2019-07-08] MEDS: AZITHROMYCIN 250 MG TABLET PO SCH (08:40)
[2019-07-08] MEDS ORDERED: HYDROXYCHLOROQUINE 200 MG TABLET PO ONE (09:00)
[2019-07-08] MEDS ORDERED: ZINC SULFATE 220 MG CAPSULE PO SCH (09:00)
[2019-07-08] MEDS: ATORVASTATIN 40 MG TABLET PO SCH (20:27)
[2019-07-08] MEDS: CLOPIDOGREL 75 MG TABLET PO SCH (20:28)
[2019-07-08] MEDS ORDERED: HYDROXYCHLOROQUINE 200 MG TABLET PO SCH (21:00)
[2019-07-09 04:49] LABS: Basophils % 0.3 % (0.0-0.8); Eosinophils # 0.1 10*3/uL (0.0-0.87); Hematocrit 37.7 VOL% (35.7-47.0); Hemoglobin 12.2 GM/DL (12.0-16.0); Immature Granulocytes % 0.5 %; Immature Granulocytes Absolute 0.03 #; Lymphocytes # 0.9 10*3/uL (1.4-4.0); Lymphocytes % 15.6 % (21.3-54.2); Mean Corpuscular HGB Conc 32.4 GM/DL (32-36); Mean Corpuscular Volume 80.6 FL (87-102); Mean Platelet Volume 9.8 FL (9.6-12.0); Monocytes % 21.5 % (1.7-12.7); Neutrophils % 61.1 % (38.7-73.9); Platelet Count 138 T/CUMM (130-400); Red Blood Count 4.68 MC/CUMM (3.8-5.5); Red Cell Distribution Width 16.9 % (9.3-17.3)
[2019-07-09 06:00] LABS: Atypical Lymphocytes Few; Eosinophils 1 % (0-10); Hypochromasia 1+; Lymphocytes 13 % (20-55); Segmented Neutrophils 72 % (50-85); Total Cells Counted 100
[2019-07-09 06:01] LABS: Microcytosis 1+; Platelet Estimate Adequate
[2019-07-09] MEDS ORDERED: HYDROXYCHLOROQUINE 200 MG TABLET PO SCH (09:00)
[2019-07-09] MEDS: AZITHROMYCIN 250 MG TABLET PO SCH (09:16)
[2019-07-09] MEDS: carvediloL 25 MG TABLET PO SCH ×2 (09:16→14:41)
[2019-07-09] MEDS: PANTOPRAZOLE 40 MG TABLET PO SCH (09:16)
[2019-07-09] MEDS: ASPIRIN EC 81 MG TABLET PO SCH (09:16)
[2019-07-09] MEDS: LOSARTAN 50 MG TABLET PO SCH (09:16)
[2019-07-09] MEDS: amLODIPine 5 MG TABLET PO SCH (09:16)
[2019-07-09] MEDS: SERTRALINE 50 MG TABLET PO SCH (09:16)
[2019-07-09] MEDS: CALCIUM (CARBONATE) 600 MG TABLET PO SCH (09:16)
[2019-07-09] MEDS: HEPARIN 5,000 UNIT/1 ML VIAL SUBCUT SCH (12:30)
[2019-07-09 15:27] LABS: Calcium 8.4 MG/DL (8.5-10.1); Osmolality,Calculated 277.8 MOS/KG (273-304)
[2019-07-09] MEDS ORDERED: POTASSIUM CHLORIDE 20 MEQ TABLET PO ONE (15:36)
[2019-07-09 16:50] VITALS: BP 127/82
[2019-07-09] MEDS ORDERED: VANCOMYCIN INJ 500 MG in SODIUM CHLORIDE 0.9% 100 ML IV ONE (17:00)
== END 2019-07-09 16:50 | disposition home or self-care (01) | DRG 640 ==
LOC: EDBD → EDUNIT# → N.ED 05:04 → N.EDINP 08:23 → SUATTDRO 08:23 → N.EDINP 10:35 → N.2E 11:30
PROVIDERS: ADMIT Internal Medicine; ATTEND Phlebology

== ENCOUNTER 2019-10-17 09:34 | Inpatient (IN) ==
[~2019-10-17 09:34] MED LIST: ASPIRIN 325 MG TABLET PO STA
[2019-10-17] MEDS ORDERED: HYDROmorphone 2 MG/1 ML VIAL IV STA (09:37)
[2019-10-17] MEDS ORDERED: ONDANSETRON 4 MG/2 ML VIAL IV STA (09:37)
[2019-10-17] MEDS ORDERED: niCARdipine 25 MG/10 ML VIAL IV ONE ×3 (09:47→17:18)
[2019-10-17 09:56] LABS: Basophils % 0.1 % (0.0-0.8); Eosinophils # 0.1 10*3/uL (0.0-0.87); Eosinophils % 1.4 % (0.00-10.9); Hematocrit 35.1 VOL% (35.7-47.0); Hemoglobin 10.9 GM/DL (12.0-16.0); Immature Granulocytes % 0.6 %; Immature Granulocytes Absolute 0.04 #; Lymphocytes # 0.9 10*3/uL (1.4-4.0); Lymphocytes % 12.9 % (21.3-54.2); Mean Corpuscular HGB Conc 31.1 GM/DL (32-36); Mean Corpuscular Volume 88.9 FL (87-102); Mean Platelet Volume 11.2 FL (9.6-12.0); Monocytes % 10.9 % (1.7-12.7); Neutrophils % 74.1 % (38.7-73.9); Platelet Count 125 T/CUMM (130-400); Red Blood Count 3.95 MC/CUMM (3.8-5.5); Red Cell Distribution Width 18.8 % (9.3-17.3)
[2019-10-17] MEDS: niCARdipine INJ 25 MG in SODIUM CHLORIDE 0.9% 240 ML IV PRN ×2 (09:56→14:55)
[2019-10-17 10:12] LABS: Hypochromasia 1+
[2019-10-17 10:13] LABS: Bilirubin,Total 0.4 MG/DL (0.2-1.0); Calcium 7.7 MG/DL (8.5-10.1); Microcytosis Slight; Osmolality,Calculated 307.6 MOS/KG (273-304); Platelet Estimate Normal; Total Protein 6.4 G/DL (6.4-8.3)
[2019-10-17 11:03] LABS: PT Patient Result 10.9 SECS (9.8-11.9); Partial Thromboplastin Time 24.2 SECS (23.9-33.8)
[2019-10-17] MEDS ORDERED: ALBUTEROL 2.5 MG/3 ML NEB RESP TX PRN (12:50)
[2019-10-17] MEDS ORDERED: BISACODYL 5 MG TABLET PO PRN (12:50)
[2019-10-17] MEDS ORDERED: ONDANSETRON 4 MG/2 ML VIAL IV PRN (12:50)
[2019-10-17] MEDS ORDERED: FUROSEMIDE 40 MG/4 ML VIAL IV ONE (13:15)
[2019-10-17] MEDS: amLODIPine 10 MG TABLET PO SCH (15:56)
[2019-10-17] MEDS: CLOPIDOGREL 75 MG TABLET PO SCH (15:56)
[2019-10-17] MEDS: predniSONE 20 MG TABLET PO SCH (15:56)
[2019-10-17] MEDS: FUROSEMIDE 20 MG TABLET PO SCH ×2 (16:19→21:15)
[2019-10-17] MEDS: LOSARTAN 50 MG TABLET PO SCH (16:23)
[2019-10-17] MEDS: SILDENAFIL 20 MG TABLET PO SCH (18:42)
[2019-10-17] MEDS: ACETAMINOPHEN 325 MG TABLET PO PRN (18:42)
[2019-10-17] MEDS ORDERED: carvediloL 25 MG TABLET PO SCH (21:00)
[2019-10-17] MEDS ORDERED: MINOXIDIL PO SCH (21:00)
[2019-10-17] MEDS ORDERED: FAMOTIDINE 20 MG TABLET PO SCH (21:00)
[2019-10-18 04:25] LABS: Basophils % 0.3 % (0.0-0.8); Hematocrit 36.1 VOL% (35.7-47.0); Hemoglobin 11.3 GM/DL (12.0-16.0); Immature Granulocytes % 0.7 %; Immature Granulocytes Absolute 0.02 #; Lymphocytes # 0.4 10*3/uL (1.4-4.0); Mean Corpuscular HGB Conc 31.3 GM/DL (32-36); Mean Corpuscular Volume 85.5 FL (87-102); Mean Platelet Volume 9.9 FL (9.6-12.0); Monocytes % 7.5 % (1.7-12.7); Neutrophils % 78.5 % (38.7-73.9); Red Blood Count 4.22 MC/CUMM (3.8-5.5); Red Cell Distribution Width 18.5 % (9.3-17.3); White Blood Count 2.9 T/CUMM (4-12)
[2019-10-18 04:34] LABS: Platelet Count 80 T/CUMM (130-400)
[2019-10-18 04:43] LABS: Platelet Estimate Decreased
[2019-10-18 04:52] LABS: Albumin 2.8 G/DL (3.4-5.0); Bilirubin,Total 0.8 MG/DL (0.2-1.0); Calcium 8.1 MG/DL (8.5-10.1); Osmolality,Calculated 298.3 MOS/KG (273-304); Total Protein 6.2 G/DL (6.4-8.3)
[2019-10-18] MEDS: niCARdipine INJ 25 MG in SODIUM CHLORIDE 0.9% 240 ML IV PRN (05:45)
[2019-10-18] MEDS: FAMOTIDINE 20 MG TABLET PO SCH (08:17)
[2019-10-18] MEDS: LOSARTAN 50 MG TABLET PO SCH (08:17)
[2019-10-18] MEDS: METOPROLOL TARTRATE 100 MG TABLET PO SCH ×2 (08:17→21:01)
[2019-10-18] MEDS: ATORVASTATIN 40 MG TABLET PO SCH (08:18)
[2019-10-18] MEDS: FUROSEMIDE 20 MG TABLET PO SCH ×2 (08:20→21:01)
[2019-10-18] MEDS: amLODIPine 10 MG TABLET PO SCH (08:20)
[2019-10-18] MEDS: ACETAMINOPHEN 325 MG TABLET PO PRN (08:20)
[2019-10-18] MEDS: CLOPIDOGREL 75 MG TABLET PO SCH (08:20)
[2019-10-18] MEDS: CALCIUM (CARBONATE) 600 MG TABLET PO SCH (08:20)
[2019-10-18] MEDS: SERTRALINE 50 MG TABLET PO SCH (08:21)
[2019-10-18] MEDS: predniSONE 20 MG TABLET PO SCH (08:21)
[2019-10-18] MEDS: SILDENAFIL 20 MG TABLET PO SCH (08:30)
[2019-10-18] MEDS: hydrALAZINE 25 MG TABLET PO SCH ×4 (08:45→21:01)
[2019-10-18] MEDS: hydrALAZINE 20 MG/1 ML VIAL IV PRN (10:50)
[2019-10-19] MEDS: hydrALAZINE 20 MG/1 ML VIAL IV PRN (00:43)
[2019-10-19 06:46] LABS: Eosinophils % 0.2 % (0.00-10.9); Hematocrit 38.1 VOL% (35.7-47.0); Hemoglobin 11.8 GM/DL (12.0-16.0); Immature Granulocytes % 0.4 %; Immature Granulocytes Absolute 0.02 #; Lymphocytes # 0.8 10*3/uL (1.4-4.0); Lymphocytes % 14.1 % (21.3-54.2); Mean Corpuscular Volume 88.4 FL (87-102); Monocytes % 15.2 % (1.7-12.7); Neutrophils % 70.1 % (38.7-73.9); Red Blood Count 4.31 MC/CUMM (3.8-5.5); Red Cell Distribution Width 18.8 % (9.3-17.3); White Blood Count 5.4 T/CUMM (4-12)
[2019-10-19 06:47] LABS: Platelet Count 89 T/CUMM (130-400)
[2019-10-19 07:05] LABS: Hypochromasia 1+; Microcytosis Slight; Ovalocytes Slight; Platelet Estimate Decreased
[2019-10-19 07:58] LABS: Calcium 8.3 MG/DL (8.5-10.1); Osmolality,Calculated 297.1 MOS/KG (273-304)
[2019-10-19] MEDS: predniSONE 20 MG TABLET PO SCH (09:21)
[2019-10-19] MEDS: CALCIUM (CARBONATE) 600 MG TABLET PO SCH (09:21)
[2019-10-19] MEDS: METOPROLOL TARTRATE 100 MG TABLET PO SCH ×2 (09:21→21:05)
[2019-10-19] MEDS: LOSARTAN 50 MG TABLET PO SCH (09:21)
[2019-10-19] MEDS: ATORVASTATIN 40 MG TABLET PO SCH (09:21)
[2019-10-19] MEDS: SILDENAFIL 20 MG TABLET PO SCH (09:22)
[2019-10-19] MEDS: FUROSEMIDE 20 MG TABLET PO SCH ×3 (09:23→21:05)
[2019-10-19] MEDS: FAMOTIDINE 20 MG TABLET PO SCH (09:23)
[2019-10-19] MEDS: SERTRALINE 50 MG TABLET PO SCH (09:23)
[2019-10-19] MEDS: CLOPIDOGREL 75 MG TABLET PO SCH (09:23)
[2019-10-19] MEDS: amLODIPine 10 MG TABLET PO SCH (09:24)
[2019-10-19] MEDS: minoxidiL 2.5 MG TABLET PO SCH (21:05)
[2019-10-20 06:43] LABS: Basophils % 0.1 % (0.0-0.8); Eosinophils % 0.3 % (0.00-10.9); Hematocrit 40.2 VOL% (35.7-47.0); Hemoglobin 12.6 GM/DL (12.0-16.0); Immature Granulocytes % 0.4 %; Immature Granulocytes Absolute 0.03 #; Lymphocytes # 1.2 10*3/uL (1.4-4.0); Lymphocytes % 17.3 % (21.3-54.2); Mean Corpuscular HGB Conc 31.3 GM/DL (32-36); Mean Corpuscular Volume 87.4 FL (87-102); Mean Platelet Volume 12.1 FL (9.6-12.0); Monocytes % 9.4 % (1.7-12.7); Neutrophils % 72.5 % (38.7-73.9); Red Cell Distribution Width 19.4 % (9.3-17.3)
[2019-10-20 07:06] LABS: Platelet Count 147 T/CUMM (130-400); White Blood Count 7.1 T/CUMM (4-12)
[2019-10-20 07:09] LABS: Calcium 8.6 MG/DL (8.5-10.1); Osmolality,Calculated 291.5 MOS/KG (273-304)
[2019-10-20 07:51] VITALS: BP 137/82
[2019-10-20] MEDS: SILDENAFIL 20 MG TABLET PO SCH (09:14)
[2019-10-20] MEDS: CALCIUM (CARBONATE) 600 MG TABLET PO SCH (09:15)
[2019-10-20] MEDS: FUROSEMIDE 20 MG TABLET PO SCH (09:16)
[2019-10-20] MEDS: FAMOTIDINE 20 MG TABLET PO SCH (09:16)
[2019-10-20] MEDS: minoxidiL 2.5 MG TABLET PO SCH (09:16)
[2019-10-20] MEDS: LOSARTAN 50 MG TABLET PO SCH (09:16)
[2019-10-20] MEDS: SERTRALINE 50 MG TABLET PO SCH (09:16)
[2019-10-20] MEDS: ATORVASTATIN 40 MG TABLET PO SCH (09:17)
[2019-10-20] MEDS: amLODIPine 10 MG TABLET PO SCH (09:17)
[2019-10-20] MEDS: METOPROLOL TARTRATE 100 MG TABLET PO SCH (09:17)
[2019-10-20] MEDS: predniSONE 20 MG TABLET PO SCH (09:17)
[2019-10-20] MEDS: CLOPIDOGREL 75 MG TABLET PO SCH (09:17)
== END 2019-10-20 12:00 | disposition home or self-care (01) | DRG 304 ==
LOC: EDBD → EDUNIT# → N.ED 09:34 → N.EDINP 11:24 → SUATTDRO 11:24 → N.ICU 16:27 → N.TELEN 10-18 14:46
PROVIDERS: ADMIT Internal Medicine; ATTEND Internal Medicine

== ENCOUNTER 2019-12-14 14:21 | Inpatient (IN) ==
[2019-12-14] MEDS ORDERED: SODIUM CHLORIDE 0.9% 1,000 ML IV STA (14:30)
[2019-12-14] MEDS ORDERED: HYDROmorphone 2 MG/1 ML VIAL IV STA ×2 (14:30→15:28)
[2019-12-14] MEDS ORDERED: methylPREDNISolone SOD SUC 125 MG/2 ML VIAL IV STA (14:30)
[2019-12-14] MEDS ORDERED: ONDANSETRON 4 MG/2 ML VIAL IV STA (14:30)
[2019-12-14 15:15] LABS: Hemoglobin 10.2 GM/DL (12.0-16.0); Immature Granulocytes % 0.8 %; Immature Granulocytes Absolute 0.03 #; Lymphocytes # 0.4 10*3/uL (1.4-4.0); Mean Corpuscular HGB Conc 31.9 GM/DL (32-36); Mean Corpuscular Volume 83.1 FL (87-102); Mean Platelet Volume 11.5 FL (9.6-12.0); Monocytes % 5.5 % (1.7-12.7); Neutrophils % 82.7 % (38.7-73.9); Platelet Count 259 T/CUMM (130-400); Red Blood Count 3.85 MC/CUMM (3.8-5.5); Red Cell Distribution Width 15.7 % (9.3-17.3); White Blood Count 3.8 T/CUMM (4-12)
[2019-12-14 15:39] LABS: Alanine Aminotransferase 22 U/L (13-56); Albumin 2.9 G/DL (3.4-5.0); Alkaline Phosphatase 43 U/L (45-117); Aspartate Amino Transferase 20 U/L (0-37); Bilirubin,Total < 0.39 MG/DL (0.2-1.0); Blood Urea Nitrogen 58 MG/DL (7-18); Calcium 7.7 MG/DL (8.5-10.1); Estimated Glom Filtration Rate 6 ML/MIN; Glucose 116 MG/DL (74-106); Osmolality,Calculated 297.3 MOS/KG (273-304); Total Protein 6.6 G/DL (6.4-8.3)
[2019-12-14] MEDS ORDERED: BISACODYL 5 MG TABLET PO PRN (16:02)
[2019-12-14] MEDS ORDERED: diphenhydrAMINE CAP 25 MG CAPSULE PO PRN (16:02)
[2019-12-14] MEDS ORDERED: GLUCAGON 1 MG VIAL IM PRN (16:02)
[2019-12-14] MEDS ORDERED: ACETAMINOPHEN 325 MG TABLET PO PRN (16:02)
[2019-12-14] MEDS ORDERED: ONDANSETRON 4 MG/2 ML VIAL IV PRN (16:02)
[2019-12-14] MEDS ORDERED: DEXTROSE 50% 25 GM/50 ML VIAL IV PRN (16:02)
[2019-12-14] MEDS ORDERED: ZALEPLON 5 MG CAPSULE PO PRN (16:02)
[2019-12-14 16:18] LABS: Sedimentation Rate-Westergren 52 MM/HR (0-20)
[2019-12-14] MEDS: methylPREDNISolone SOD SUC 40 MG/1 ML VIAL IV SCH ×2 (18:40→23:06)
[2019-12-14] MEDS: HEPARIN 5,000 UNIT/1 ML VIAL SUBCUT SCH (18:41)
[2019-12-14] MEDS: HYDROXYCHLOROQUINE 200 MG TABLET PO SCH (20:34)
[2019-12-14] MEDS: METOPROLOL TARTRATE 50 MG TABLET PO SCH (20:34)
[2019-12-14] MEDS: SILDENAFIL 50 MG PO SCH (20:35)
[2019-12-14] MEDS: MORPHINE 4 MG/1 ML VIAL IV PRN (20:39)
[2019-12-14 21:59] LABS: Apearance,Urine CLOUDY (Clear); Bacteria,Urine Many /HPF (Few); Bilirubin,Urine Negative (Negative); Blood, Urine Negative (Negative); Glucose,Urine (UA) Negative (Negative); Ketones,Urine Negative (Negative); Nitrite,Urine Negative (Negative); Protein,Urine 100 MG/DL; RBC,Urine 42 /HPF (0-4); Squamous Epithelial Cell,Urine Occasional /HPF (0-10); Urine Color Yellow (Yellow); Urine Specific Gravity 1.015 (1.001-1.035); Urine Urobilinogen < 2.0 EU/DL (0.2-1.0); WBC,Urine 12 /HPF (0-6)
[2019-12-15] MEDS: MYLANTA/LIDO VISC 2:1 300 ML BOTTLE SWISH/SPIT PRN ×2 (00:56→07:44)
[2019-12-15] MEDS: MORPHINE 4 MG/1 ML VIAL IV PRN ×2 (01:03→07:38)
[2019-12-15] MEDS: HEPARIN 5,000 UNIT/1 ML VIAL SUBCUT SCH ×2 (05:21→16:40)
[2019-12-15] MEDS: methylPREDNISolone SOD SUC 40 MG/1 ML VIAL IV SCH ×4 (05:24→23:25)
[2019-12-15 06:39] LABS: Hematocrit 31.2 VOL% (35.7-47.0); Hemoglobin 9.6 GM/DL (12.0-16.0); Immature Granulocytes % 1.2 %; Immature Granulocytes Absolute 0.05 #; Lymphocytes # 0.5 10*3/uL (1.4-4.0); Lymphocytes % 11.2 % (21.3-54.2); Mean Corpuscular HGB Conc 30.8 GM/DL (32-36); Mean Corpuscular Volume 84.8 FL (87-102); Mean Platelet Volume 10.3 FL (9.6-12.0); Monocytes % 7.4 % (1.7-12.7); Neutrophils % 80.2 % (38.7-73.9); Platelet Count 243 T/CUMM (130-400); Red Blood Count 3.68 MC/CUMM (3.8-5.5); Red Cell Distribution Width 15.8 % (9.3-17.3)
[2019-12-15 07:11] LABS: Calcium 7.6 MG/DL (8.5-10.1); Osmolality,Calculated 302.8 MOS/KG (273-304)
[2019-12-15] MEDS ORDERED: cefTRIAXone 1,000 MG in SYRINGE 1 EACH IV SCH (08:30)
[2019-12-15] MEDS: SILDENAFIL 50 MG PO SCH ×2 (09:00→21:03)
[2019-12-15] MEDS: LOSARTAN 50 MG TABLET PO SCH (09:07)
[2019-12-15] MEDS: amLODIPine 10 MG TABLET PO SCH (09:07)
[2019-12-15] MEDS: ATORVASTATIN 40 MG TABLET PO SCH (09:07)
[2019-12-15] MEDS: CALCIUM (CARBONATE) 600 MG TABLET PO SCH (09:07)
[2019-12-15] MEDS: METOPROLOL TARTRATE 50 MG TABLET PO SCH ×2 (09:07→21:02)
[2019-12-15] MEDS: HYDROXYCHLOROQUINE 200 MG TABLET PO SCH ×2 (09:08→21:02)
[2019-12-15] MEDS: SERTRALINE 50 MG TABLET PO SCH (09:08)
[2019-12-15] MEDS: CLOPIDOGREL 75 MG TABLET PO SCH (09:08)
[2019-12-15] MEDS: PANTOPRAZOLE 40 MG TABLET PO SCH (09:08)
[2019-12-15] MEDS: HYDROmorphone 2 MG/1 ML VIAL IV PRN ×3 (12:00→23:22)
[2019-12-15] MEDS: CLOBETASOL 0.05% OINT 15 GM TUBE TOP SCH (21:03)
[2019-12-16] MEDS: HEPARIN 5,000 UNIT/1 ML VIAL SUBCUT SCH ×2 (05:29→16:42)
[2019-12-16] MEDS: methylPREDNISolone SOD SUC 40 MG/1 ML VIAL IV SCH ×4 (05:33→21:56)
[2019-12-16 05:42] LABS: Basophils % 0.2 % (0.0-0.8); Hemoglobin 10.2 GM/DL (12.0-16.0); Immature Granulocytes % 1.5 %; Immature Granulocytes Absolute 0.06 #; Lymphocytes # 0.3 10*3/uL (1.4-4.0); Lymphocytes % 6.6 % (21.3-54.2); Mean Corpuscular HGB Conc 30.9 GM/DL (32-36); Mean Corpuscular Volume 85.7 FL (87-102); Mean Platelet Volume 10.6 FL (9.6-12.0); Monocytes % 12.3 % (1.7-12.7); NRBC # 0.02 10*3/uL; Neutrophils % 79.4 % (38.7-73.9); Platelet Count 256 T/CUMM (130-400); Red Blood Count 3.85 MC/CUMM (3.8-5.5); Red Cell Distribution Width 15.9 % (9.3-17.3); White Blood Count 4.1 T/CUMM (4-12)
[2019-12-16 07:36] LABS: % Iron Saturation 25.4 % (18-50); Ferritin 1056.9 ng/ml (8-252)
[2019-12-16] MEDS: HYDROmorphone 2 MG/1 ML VIAL IV PRN ×3 (07:53→22:05)
[2019-12-16] MEDS ORDERED: DAPSONE 25 MG TABLET PO SCH (09:00)
[2019-12-16] MEDS: PANTOPRAZOLE 40 MG TABLET PO SCH (09:41)
[2019-12-16] MEDS: METOPROLOL TARTRATE 50 MG TABLET PO SCH ×2 (09:41→20:27)
[2019-12-16] MEDS: CLOPIDOGREL 75 MG TABLET PO SCH (09:41)
[2019-12-16] MEDS: HYDROXYCHLOROQUINE 200 MG TABLET PO SCH ×2 (09:42→20:27)
[2019-12-16] MEDS: CLOBETASOL 0.05% OINT 15 GM TUBE TOP SCH ×3 (09:42→20:28)
[2019-12-16] MEDS: LOSARTAN 50 MG TABLET PO SCH (09:42)
[2019-12-16] MEDS: SERTRALINE 50 MG TABLET PO SCH (09:42)
[2019-12-16] MEDS: ATORVASTATIN 40 MG TABLET PO SCH (09:42)
[2019-12-16] MEDS: SILDENAFIL 50 MG PO SCH ×2 (09:42→21:36)
[2019-12-16] MEDS: amLODIPine 10 MG TABLET PO SCH (09:42)
[2019-12-16] MEDS: CALCIUM (CARBONATE) 600 MG TABLET PO SCH (09:42)
[2019-12-16] MEDS: DAPSONE 100 MG TABLET PO SCH (15:30)
[2019-12-16] MEDS: GABAPENTIN 300 MG CAPSULE PO SCH ×2 (15:30→20:27)
[2019-12-16] MEDS: MYLANTA/LIDO VISC 2:1 300 ML BOTTLE SWISH/SPIT PRN (16:10)
[2019-12-16] MEDS: cloNIDine 0.1 MG TABLET PO SCH ×2 (16:43→20:27)
[2019-12-17] MEDS: HEPARIN 5,000 UNIT/1 ML VIAL SUBCUT SCH ×2 (04:07→16:22)
[2019-12-17] MEDS: methylPREDNISolone SOD SUC 40 MG/1 ML VIAL IV SCH ×4 (04:07→22:14)
[2019-12-17 05:48] LABS: Hematocrit 33.8 VOL% (35.7-47.0); Hemoglobin 10.5 GM/DL (12.0-16.0); Immature Granulocytes % 1.5 %; Immature Granulocytes Absolute 0.06 #; Lymphocytes # 0.3 10*3/uL (1.4-4.0); Lymphocytes % 6.6 % (21.3-54.2); Mean Corpuscular HGB Conc 31.1 GM/DL (32-36); Mean Corpuscular Volume 83.5 FL (87-102); Mean Platelet Volume 11.5 FL (9.6-12.0); NRBC # 0.04 10*3/uL; Neutrophils % 82.9 % (38.7-73.9); Platelet Count 251 T/CUMM (130-400); Red Blood Count 4.05 MC/CUMM (3.8-5.5); Red Cell Distribution Width 15.9 % (9.3-17.3); White Blood Count 4.1 T/CUMM (4-12)
[2019-12-17 06:16] LABS: Calcium 8.3 MG/DL (8.5-10.1); Osmolality,Calculated 299.1 MOS/KG (273-304)
[2019-12-17] MEDS: MYLANTA/LIDO VISC 2:1 300 ML BOTTLE SWISH/SPIT PRN ×2 (07:41→16:21)
[2019-12-17] MEDS: HYDROmorphone 2 MG/1 ML VIAL IV PRN ×2 (08:00→16:22)
[2019-12-17] MEDS: DAPSONE 100 MG TABLET PO SCH (08:59)
[2019-12-17] MEDS: SILDENAFIL 50 MG PO SCH ×2 (08:59→21:14)
[2019-12-17] MEDS: GABAPENTIN 300 MG CAPSULE PO SCH ×3 (08:59→21:13)
[2019-12-17] MEDS: ATORVASTATIN 40 MG TABLET PO SCH (08:59)
[2019-12-17] MEDS: HYDROXYCHLOROQUINE 200 MG TABLET PO SCH ×2 (08:59→21:13)
[2019-12-17] MEDS: METOPROLOL TARTRATE 50 MG TABLET PO SCH ×2 (08:59→21:13)
[2019-12-17] MEDS: LOSARTAN 50 MG TABLET PO SCH (08:59)
[2019-12-17] MEDS: amLODIPine 10 MG TABLET PO SCH (08:59)
[2019-12-17] MEDS: CALCIUM (CARBONATE) 600 MG TABLET PO SCH (08:59)
[2019-12-17] MEDS: cloNIDine 0.1 MG TABLET PO SCH ×3 (08:59→21:13)
[2019-12-17] MEDS: CLOPIDOGREL 75 MG TABLET PO SCH (08:59)
[2019-12-17] MEDS: PANTOPRAZOLE 40 MG TABLET PO SCH (08:59)
[2019-12-17] MEDS: SERTRALINE 50 MG TABLET PO SCH (08:59)
[2019-12-17] MEDS: CLOBETASOL 0.05% OINT 15 GM TUBE TOP SCH ×2 (09:00→21:14)
[2019-12-18] MEDS: HYDROmorphone 2 MG/1 ML VIAL IV PRN ×2 (04:19→09:33)
[2019-12-18] MEDS: methylPREDNISolone SOD SUC 40 MG/1 ML VIAL IV SCH ×2 (04:20→11:15)
[2019-12-18] MEDS: HEPARIN 5,000 UNIT/1 ML VIAL SUBCUT SCH (04:21)
[2019-12-18] MEDS: HYDROXYCHLOROQUINE 200 MG TABLET PO SCH (09:33)
[2019-12-18] MEDS: GABAPENTIN 300 MG CAPSULE PO SCH (09:33)
[2019-12-18] MEDS: amLODIPine 10 MG TABLET PO SCH (09:53)
[2019-12-18] MEDS: LOSARTAN 50 MG TABLET PO SCH (09:53)
[2019-12-18] MEDS: CLOPIDOGREL 75 MG TABLET PO SCH (09:53)
[2019-12-18] MEDS: DAPSONE 100 MG TABLET PO SCH (09:53)
[2019-12-18] MEDS: PANTOPRAZOLE 40 MG TABLET PO SCH (09:53)
[2019-12-18] MEDS: CALCIUM (CARBONATE) 600 MG TABLET PO SCH (09:53)
[2019-12-18] MEDS: ATORVASTATIN 40 MG TABLET PO SCH (09:53)
[2019-12-18] MEDS: CLOBETASOL 0.05% OINT 15 GM TUBE TOP SCH (09:53)
[2019-12-18] MEDS: METOPROLOL TARTRATE 50 MG TABLET PO SCH (09:53)
[2019-12-18] MEDS: SERTRALINE 50 MG TABLET PO SCH (09:53)
[2019-12-18] MEDS: cloNIDine 0.1 MG TABLET PO SCH (09:53)
[2019-12-18] MEDS: SILDENAFIL 50 MG PO SCH (09:54)
[2019-12-18 16:36] VITALS: BP 126/84
== END 2019-12-18 13:45 | disposition home or self-care (01) | DRG 545 ==
LOC: EDBD → EDUNIT# → N.EDINP 14:21 → N.ED 14:21 → N.3E 16:50
PROVIDERS: ADMIT Internal Medicine; ATTEND Internal Medicine

== ENCOUNTER 2020-01-06 02:43 | Inpatient (IN) ==
[2020-01-06] MEDS ORDERED: MORPHINE 4 MG/1 ML VIAL IV STA ×2 (02:53→05:22)
[2020-01-06] MEDS ORDERED: ONDANSETRON 4 MG/2 ML VIAL IV STA (02:53)
[2020-01-06 03:21] LABS: Basophils % 0.1 % (0.0-0.8); Hematocrit 30.6 VOL% (35.7-47.0); Hemoglobin 9.6 GM/DL (12.0-16.0); Immature Granulocytes % 0.9 %; Immature Granulocytes Absolute 0.16 #; Lymphocytes # 0.6 10*3/uL (1.4-4.0); Lymphocytes % 3.4 % (21.3-54.2); Mean Corpuscular HGB Conc 31.4 GM/DL (32-36); Mean Corpuscular Volume 86.7 FL (87-102); Mean Platelet Volume 12.3 FL (9.6-12.0); Monocytes % 4.4 % (1.7-12.7); NRBC # 0.02 10*3/uL; Neutrophils % 91.2 % (38.7-73.9); Platelet Count 251 T/CUMM (130-400); Red Blood Count 3.53 MC/CUMM (3.8-5.5); Red Cell Distribution Width 21.2 % (9.3-17.3); White Blood Count 18.1 T/CUMM (4-12)
[2020-01-06 03:32] LABS: Alanine Aminotransferase 65 U/L (13-56); Albumin 2.4 G/DL (3.4-5.0); Alkaline Phosphatase 165 U/L (45-117); Amylase 225 U/L (25-115); Aspartate Amino Transferase 38 U/L (0-37); Blood Urea Nitrogen 92 MG/DL (7-18); Calcium 8.1 MG/DL (8.5-10.1); Estimated Glom Filtration Rate 3 ML/MIN; Glucose 113 MG/DL (74-106); Osmolality,Calculated 298.1 MOS/KG (273-304); Total Protein 6.1 G/DL (6.4-8.3); Troponin I 0.031 NG/ML (0.00-0.045)
[2020-01-06] MEDS ORDERED: PIPERACILLIN/TAZOBACTAM 2,250 MG in SODIUM CHLORIDE 0.9% 100 ML IV STA (04:27)
[2020-01-06 04:41] LABS: Band Neutrophils 3 % (0-10); Lymphocytes 3 % (20-55); Segmented Neutrophils 88 % (50-85); Total Cells Counted 100
[2020-01-06 04:42] LABS: Acanthocytes Few; Hypersegmented Neutrophil SLIGHT; Hypochromasia 1+; Microcytosis 1+; Ovalocytes Slight; Polychromasia Slight
[2020-01-06] MEDS ORDERED: PIPERACILLIN/TAZOBACTAM 3,375 MG in SODIUM CHLORIDE 0.9% 100 ML IV STA (04:42)
[2020-01-06 04:43] LABS: Platelet Estimate Normal
[2020-01-06 04:45] LABS: Amylase,Peritoneal Fluid 86 U/L; Glucose,Peritoneal Fluid 66 MG/DL
[2020-01-06 04:53] LABS: Neutrophils,Peritoneal Fluid 88 %
[2020-01-06 05:11] LABS: RBC,Peritoneal Fluid 31150 T/CUMM
[2020-01-06] MEDS ORDERED: ALBUTEROL/IPRATROPIUM 3 ML NEB RESP TX PRN (05:23)
[2020-01-06] MEDS ORDERED: DEXTROSE 50% 25 GM/50 ML VIAL IV PRN (05:23)
[2020-01-06] MEDS ORDERED: guaiFENesin/DM ER 600-30 MG TABLET PO PRN (05:23)
[2020-01-06] MEDS ORDERED: NICOTINE 21 MG/24 HR PATCH TRANSDERM PRN (05:23)
[2020-01-06] MEDS ORDERED: ONDANSETRON 4 MG/2 ML VIAL IV PRN (05:23)
[2020-01-06] MEDS ORDERED: GLUCAGON 1 MG VIAL IM PRN (05:23)
[2020-01-06] MEDS ORDERED: hydrALAZINE 20 MG/1 ML VIAL IV PRN (05:23)
[2020-01-06] MEDS ORDERED: ACETAMINOPHEN 325 MG TABLET PO PRN (05:23)
[2020-01-06] MEDS ORDERED: diphenhydrAMINE CAP 25 MG CAPSULE PO PRN (05:23)
[2020-01-06] MEDS: PIPERACILLIN/TAZOBACTAM 3,375 MG in SODIUM CHLORIDE 0.9% 100 ML IV SCH (14:16)
[2020-01-06] MEDS: MORPHINE 4 MG/1 ML VIAL IV PRN (14:17)
[2020-01-06] MEDS ORDERED: VANCOMYCIN 1,000 MG VIAL INTRAPERIT ONE (21:00)
[2020-01-07] MEDS: MORPHINE 4 MG/1 ML VIAL IV PRN (00:55)
[2020-01-07] MEDS: PIPERACILLIN/TAZOBACTAM 3,375 MG in SODIUM CHLORIDE 0.9% 100 ML IV SCH (00:59)
[2020-01-07 05:45] LABS: Basophils % 0.2 % (0.0-0.8); Hematocrit 34.1 VOL% (35.7-47.0); Hemoglobin 10.8 GM/DL (12.0-16.0); Immature Granulocytes % 0.8 %; Immature Granulocytes Absolute 0.04 #; Lymphocytes # 0.4 10*3/uL (1.4-4.0); Lymphocytes % 8.4 % (21.3-54.2); Mean Corpuscular HGB Conc 31.7 GM/DL (32-36); NRBC # 0.03 10*3/uL; Neutrophils % 85.6 % (38.7-73.9); Platelet Count 237 T/CUMM (130-400); Red Blood Count 4.06 MC/CUMM (3.8-5.5); Red Cell Distribution Width 21.7 % (9.3-17.3); White Blood Count 5.2 T/CUMM (4-12)
[2020-01-07 06:28] LABS: Albumin 2.1 G/DL (3.4-5.0); Calcium 8.5 MG/DL (8.5-10.1); Total Protein 6.2 G/DL (6.4-8.3)
[2020-01-07 06:33] LABS: Band Neutrophils 8 % (0-10); Eosinophils 1 % (0-10); Lymphocytes 10 % (20-55); Nucleated Red Blood Cells 2 (0-5); Platelet Estimate Adequate; Segmented Neutrophils 74 % (50-85); Total Cells Counted 100
[2020-01-07 06:34] LABS: Burr Cells Slight; Hypochromasia 1+; Microcytosis Slight; Ovalocytes Slight
[2020-01-07] MEDS ORDERED: predniSONE 20 MG TABLET PO SCH (08:30)
[2020-01-07] MEDS: LOSARTAN 50 MG TABLET PO SCH (10:04)
[2020-01-07] MEDS: SERTRALINE 100 MG TABLET PO SCH (10:05)
[2020-01-07] MEDS: GABAPENTIN 300 MG CAPSULE PO SCH ×3 (10:05→21:28)
[2020-01-07] MEDS: carvediloL 25 MG TABLET PO SCH ×3 (10:05→21:27)
[2020-01-07] MEDS: CLOPIDOGREL 75 MG TABLET PO SCH (10:05)
[2020-01-07] MEDS: SILDENAFIL 50 MG PO SCH ×2 (10:06→22:34)
[2020-01-07] MEDS: HYDROXYCHLOROQUINE 200 MG TABLET PO SCH ×2 (10:17→21:28)
[2020-01-07] MEDS: predniSONE 20 MG TABLET PO SCH (10:18)
[2020-01-07] MEDS ORDERED: ATORVASTATIN 40 MG TABLET PO SCH (21:00)
[2020-01-07] MEDS ORDERED: ACETAMINOPHEN 500 MG TABLET PO SCH (21:00)
[2020-01-08 07:28] LABS: Basophils % 0.2 % (0.0-0.8); Hematocrit 26.2 VOL% (35.7-47.0); Hemoglobin 8.1 GM/DL (12.0-16.0); Immature Granulocytes % 1.1 %; Immature Granulocytes Absolute 0.14 #; Lymphocytes # 0.4 10*3/uL (1.4-4.0); Lymphocytes % 3.4 % (21.3-54.2); Mean Corpuscular HGB Conc 30.9 GM/DL (32-36); Mean Corpuscular Volume 85.1 FL (87-102); Mean Platelet Volume 11.4 FL (9.6-12.0); Monocytes % 5.2 % (1.7-12.7); Neutrophils % 90.1 % (38.7-73.9); Platelet Count 170 T/CUMM (130-400); Red Blood Count 3.08 MC/CUMM (3.8-5.5); Red Cell Distribution Width 22.4 % (9.3-17.3); White Blood Count 12.2 T/CUMM (4-12)
[2020-01-08 07:53] LABS: Lymphocytes 2 % (20-55); Platelet Estimate Adequate; Segmented Neutrophils 95 % (50-85); Total Cells Counted 100
[2020-01-08 07:55] LABS: Hypochromasia 1+; Microcytosis Slight
[2020-01-08 08:08] LABS: Calcium 8.2 MG/DL (8.5-10.1)
[2020-01-08 08:59] LABS: Folate 4.4 NG/ML (5.4-24.0); Vitamin B12 1348 PG/ML (211-911)
[2020-01-08 09:07] LABS: Basophils % 0.1 % (0.0-0.8); Hematocrit 28.2 VOL% (35.7-47.0); Hemoglobin 8.8 GM/DL (12.0-16.0); Immature Granulocytes % 0.7 %; Immature Granulocytes Absolute 0.08 #; Lymphocytes # 0.4 10*3/uL (1.4-4.0); Lymphocytes % 3.1 % (21.3-54.2); Mean Corpuscular HGB Conc 31.2 GM/DL (32-36); Mean Platelet Volume 11.9 FL (9.6-12.0); Neutrophils % 93.1 % (38.7-73.9); Platelet Count 199 T/CUMM (130-400); Red Blood Count 3.28 MC/CUMM (3.8-5.5); Red Cell Distribution Width 22.3 % (9.3-17.3); White Blood Count 11.1 T/CUMM (4-12)
[2020-01-08 09:36] LABS: Hypochromasia 1+; Lymphocytes 2 % (20-55); Microcytosis 1+; Platelet Estimate Adequate; Segmented Neutrophils 93 % (50-85); Total Cells Counted 100
[2020-01-08 10:15] LABS: Sedimentation Rate-Westergren 109 MM/HR (0-20)
[2020-01-08] MEDS: predniSONE 20 MG TABLET PO SCH (10:19)
[2020-01-08] MEDS: carvediloL 25 MG TABLET PO SCH ×2 (10:19→16:00)
[2020-01-08] MEDS: HYDROXYCHLOROQUINE 200 MG TABLET PO SCH (10:19)
[2020-01-08] MEDS: SERTRALINE 100 MG TABLET PO SCH (10:20)
[2020-01-08] MEDS: GABAPENTIN 300 MG CAPSULE PO SCH ×2 (10:20→16:00)
[2020-01-08] MEDS: CLOPIDOGREL 75 MG TABLET PO SCH (10:20)
[2020-01-08] MEDS: LOSARTAN 50 MG TABLET PO SCH (10:20)
[2020-01-08] MEDS: SILDENAFIL 50 MG PO SCH (10:23)
[2020-01-08] MEDS: MORPHINE 4 MG/1 ML VIAL IV PRN (15:59)
[2020-01-08 16:04] VITALS: BP 93/58
[2020-01-09] MEDS ORDERED: predniSONE 20 MG TABLET PO SCH (09:00)
[2020-01-09 12:53] LABS: Hemoglobin A1 (Alkaline) 98.3 % (96.5-98.5); Hemoglobin A2 (Alkaline) 1.7 % (1.5-3.5)
== END 2020-01-08 17:24 | disposition home or self-care (01) | DRG 919 ==
LOC: EDUNIT# → N.ED 02:43 → N.EDINP 05:23 → N.TELEN 11:03
PROVIDERS: ADMIT Internal Medicine; ATTEND Internal Medicine

== ENCOUNTER 2020-01-24 11:23 | Observation (INO) ==
[2020-01-24] MEDS ORDERED: MAGNESIUM SULF RIDER 2 GM in PREMIX 1 EACH IV PRN (14:30)
[2020-01-24] MEDS ORDERED: POTASSIUM CHLORIDE RIDER 10 MEQ in PREMIX 1 EACH IV PRN (14:30)
[2020-01-24] MEDS ORDERED: ACETAMINOPHEN 325 MG TABLET PO PRN (14:30)
[2020-01-24] MEDS ORDERED: MAGNESIUM SULF RIDER 4 GM in PREMIX 1 EACH IV PRN (14:30)
[2020-01-24] MEDS ORDERED: traMADol 50 MG TABLET PO PRN (14:30)
[2020-01-24] MEDS ORDERED: SODIUM CHLORIDE 0.9% 1,000 ML IV PRN (17:44)
[2020-01-24] MEDS ORDERED: FUROSEMIDE 20 MG/2 ML VIAL IV ONE (17:49)
[2020-01-24] MEDS: cefTRIAXone 1,000 MG in SYRINGE 1 EACH IV SCH (18:24)
[2020-01-24 18:36] LABS: Alanine Aminotransferase 17 U/L (13-56); Albumin 1.7 G/DL (3.4-5.0); Alkaline Phosphatase 139 U/L (45-117); Aspartate Amino Transferase 20 U/L (0-37); Bilirubin,Total < 0.39 MG/DL (0.2-1.0); Blood Urea Nitrogen 135 MG/DL (7-18); Calcium 6.7 MG/DL (8.5-10.1); Estimated Glom Filtration Rate 3 ML/MIN; Glucose 141 MG/DL (74-106); Osmolality,Calculated 324.4 MOS/KG (273-304); Total Protein 5.9 G/DL (6.4-8.3)
[2020-01-24 19:05] LABS: Hematocrit 27.1 VOL% (35.7-47.0); Hemoglobin 7.9 GM/DL (12.0-16.0)
[2020-01-24] MEDS: ATORVASTATIN 40 MG TABLET PO SCH (20:33)
[2020-01-24] MEDS: carvediloL 25 MG TABLET PO SCH (20:33)
[2020-01-24] MEDS: GABAPENTIN 300 MG CAPSULE PO SCH (20:33)
[2020-01-24] MEDS: DOCUSATE SODIUM 100 MG CAPSULE PO SCH (20:34)
[2020-01-24] MEDS: HYDROXYCHLOROQUINE 200 MG TABLET PO SCH (20:34)
[2020-01-25 05:43] LABS: Alanine Aminotransferase 12 U/L (13-56); Albumin 1.3 G/DL (3.4-5.0); Alkaline Phosphatase 118 U/L (45-117); Aspartate Amino Transferase 15 U/L (0-37); Bilirubin,Total < 0.39 MG/DL (0.2-1.0); Blood Urea Nitrogen 134 MG/DL (7-18); Calcium 6.4 MG/DL (8.5-10.1); Estimated Glom Filtration Rate 3 ML/MIN; Glucose 93 MG/DL (74-106); Osmolality,Calculated 315.8 MOS/KG (273-304); Total Protein 4.9 G/DL (6.4-8.3)
[2020-01-25] MEDS: HYDROXYCHLOROQUINE 200 MG TABLET PO SCH ×2 (09:13→21:56)
[2020-01-25] MEDS: GABAPENTIN 300 MG CAPSULE PO SCH ×3 (09:13→21:56)
[2020-01-25] MEDS: SERTRALINE 50 MG TABLET PO SCH (09:13)
[2020-01-25] MEDS: LOSARTAN 50 MG TABLET PO SCH (09:15)
[2020-01-25] MEDS: carvediloL 25 MG TABLET PO SCH ×3 (09:15→21:57)
[2020-01-25] MEDS: PANTOPRAZOLE 40 MG TABLET PO SCH (09:16)
[2020-01-25] MEDS: DOCUSATE SODIUM 100 MG CAPSULE PO SCH ×2 (09:16→21:57)
[2020-01-25 09:53] LABS: Basophils % 0.2 % (0.0-0.8); Hematocrit 18.9 VOL% (35.7-47.0); Immature Granulocytes % 1.4 %; Immature Granulocytes Absolute 0.09 #; Lymphocytes # 0.8 10*3/uL (1.4-4.0); Lymphocytes % 12.4 % (21.3-54.2); Mean Corpuscular HGB Conc 29.6 GM/DL (32-36); Mean Corpuscular Volume 94.5 FL (87-102); Mean Platelet Volume 12.8 FL (9.6-12.0); Platelet Count 112 T/CUMM (130-400); Red Cell Distribution Width 18.6 % (9.3-17.3); White Blood Count 6.2 T/CUMM (4-12)
[2020-01-25 09:57] LABS: Hemoglobin 5.6 GM/DL (12.0-16.0)
[2020-01-25 10:18] LABS: Hypochromasia 2+; Microcytosis 1+; Ovalocytes Slight; Platelet Estimate Decreased
[2020-01-25] MEDS: ONDANSETRON 4 MG/2 ML VIAL IV PRN (11:53)
[2020-01-25] MEDS ORDERED: FUROSEMIDE 20 MG/2 ML VIAL IV ONE (15:01)
[2020-01-25] MEDS: cefTRIAXone 1,000 MG in SYRINGE 1 EACH IV SCH (17:25)
[2020-01-25 17:58] LABS: Basophils % 0.2 % (0.0-0.8); Hematocrit 18.9 VOL% (35.7-47.0); Immature Granulocytes % 1.4 %; Immature Granulocytes Absolute 0.09 #; Lymphocytes # 0.8 10*3/uL (1.4-4.0); Lymphocytes % 12.4 % (21.3-54.2); Mean Corpuscular HGB Conc 29.6 GM/DL (32-36); Mean Corpuscular Volume 94.5 FL (87-102); Mean Platelet Volume 12.8 FL (9.6-12.0); Platelet Count 112 T/CUMM (130-400); Red Cell Distribution Width 18.6 % (9.3-17.3); White Blood Count 6.2 T/CUMM (4-12)
[2020-01-25 18:03] LABS: Hemoglobin 5.6 GM/DL (12.0-16.0)
[2020-01-25 20:37] LABS: Folate 3.9 NG/ML (5.4-24.0)
[2020-01-25 20:44] LABS: RBC,Peritoneal Fluid 25981 T/CUMM
[2020-01-25 20:55] LABS: Band Neutrophils 1 % (0-10); Lymphocytes 12 % (20-55); Segmented Neutrophils 82 % (50-85); Total Cells Counted 100
[2020-01-25 20:56] LABS: Basophilic Stippling Few; Platelet Estimate Normal
[2020-01-25 20:57] LABS: Microcytosis Slight; Spherocytes Slight
[2020-01-25 21:09] LABS: Neutrophils,Peritoneal Fluid 89 %
[2020-01-25] MEDS: ATORVASTATIN 40 MG TABLET PO SCH (21:57)
[2020-01-25 22:26] LABS: Hematocrit 28.4 VOL% (35.7-47.0)
[2020-01-25 22:27] LABS: Hemoglobin 8.8 GM/DL (12.0-16.0)
[2020-01-26 06:16] LABS: Basophils % 0.4 % (0.0-0.8); Hematocrit 26.7 VOL% (35.7-47.0); Hemoglobin 8.4 GM/DL (12.0-16.0); Immature Granulocytes % 2.1 %; Immature Granulocytes Absolute 0.11 #; Lymphocytes # 0.6 10*3/uL (1.4-4.0); Lymphocytes % 11.8 % (21.3-54.2); Mean Corpuscular HGB Conc 31.5 GM/DL (32-36); Mean Platelet Volume 12.7 FL (9.6-12.0); Monocytes % 8.7 % (1.7-12.7); Platelet Count 118 T/CUMM (130-400); White Blood Count 5.2 T/CUMM (4-12)
[2020-01-26 06:29] LABS: Calcium 6.1 MG/DL (8.5-10.1); Osmolality,Calculated 322.3 MOS/KG (273-304)
[2020-01-26] MEDS: ONDANSETRON 4 MG/2 ML VIAL IV PRN (10:51)
[2020-01-26] MEDS ORDERED: BUPIVACAINE MPF 0.25% 30 ML VIAL ONE (11:27)
[2020-01-26] MEDS ORDERED: HEPARIN 5,000 UNIT/1 ML VIAL ONE ×2 (11:27→11:29)
[2020-01-26] MEDS ORDERED: LIDOCAINE 1%/EPI INJ 20 ML VIAL ONE (11:28)
[2020-01-26] MEDS ORDERED: ONDANSETRON 4 MG/2 ML VIAL ONE (12:43)
[2020-01-26] MEDS ORDERED: fentaNYL 100 MCG/2 ML VIAL ONE (12:43)
[2020-01-26] MEDS ORDERED: ETOMIDATE 40 MG/20 ML VIAL IV ONE (12:43)
[2020-01-26] MEDS ORDERED: SEVOFLURANE 1 UNIT/15 MINUTE INH ONE (12:43)
[2020-01-26] MEDS ORDERED: MIDAZOLAM 2 MG/2 ML VIAL ONE (12:43)
[2020-01-26] MEDS ORDERED: LIDOCAINE 2% 5 ML VIAL ONE (12:43)
[2020-01-26] MEDS ORDERED: propofoL 200 MG/20 ML VIAL IV ONE (12:43)
[2020-01-26] MEDS ORDERED: ROCURONIUM 100 MG/10 ML VIAL IV ONE (12:44)
[2020-01-26] MEDS ORDERED: SUCCINYLCHOLINE 200 MG/10 ML VIAL ONE (12:44)
[2020-01-26] MEDS ORDERED: SODIUM CHLORIDE 0.9% 250 ML IV ONE (12:44)
[2020-01-26] MEDS ORDERED: HEPARIN 10,000 UNIT/10 ML VIAL IV PRN (14:01)
[2020-01-26] MEDS: carvediloL 25 MG TABLET PO SCH ×3 (18:11→20:47)
[2020-01-26] MEDS: DOCUSATE SODIUM 100 MG CAPSULE PO SCH ×2 (18:11→20:46)
[2020-01-26] MEDS: GABAPENTIN 300 MG CAPSULE PO SCH ×3 (18:12→20:47)
[2020-01-26] MEDS: PANTOPRAZOLE 40 MG TABLET PO SCH (18:12)
[2020-01-26] MEDS: LOSARTAN 50 MG TABLET PO SCH (18:12)
[2020-01-26] MEDS: cefTRIAXone 1,000 MG in SYRINGE 1 EACH IV SCH (18:13)
[2020-01-26] MEDS: SERTRALINE 50 MG TABLET PO SCH (18:13)
[2020-01-26] MEDS: HYDROXYCHLOROQUINE 200 MG TABLET PO SCH ×2 (18:14→20:47)
[2020-01-26] MEDS: ATORVASTATIN 40 MG TABLET PO SCH (20:37)
[2020-01-27 05:19] LABS: Basophils % 0.4 % (0.0-0.8); Hematocrit 26.5 VOL% (35.7-47.0); Lymphocytes # 0.9 10*3/uL (1.4-4.0); Mean Corpuscular HGB Conc 30.2 GM/DL (32-36); Mean Corpuscular Volume 90.1 FL (87-102); Mean Platelet Volume 12.7 FL (9.6-12.0); Monocytes % 12.1 % (1.7-12.7); Neutrophils % 68.5 % (38.7-73.9); Platelet Count 129 T/CUMM (130-400); Red Blood Count 2.94 MC/CUMM (3.8-5.5); White Blood Count 5.1 T/CUMM (4-12)
[2020-01-27 05:40] LABS: Calcium 6.6 MG/DL (8.5-10.1); Osmolality,Calculated 296.3 MOS/KG (273-304)
[2020-01-27] MEDS: carvediloL 25 MG TABLET PO SCH ×2 (09:01→15:17)
[2020-01-27] MEDS: POTASSIUM CHLORIDE 20 MEQ TABLET PO PRN ×3 (09:01→15:17)
[2020-01-27] MEDS: HYDROXYCHLOROQUINE 200 MG TABLET PO SCH (09:01)
[2020-01-27] MEDS: SERTRALINE 50 MG TABLET PO SCH (09:01)
[2020-01-27] MEDS: GABAPENTIN 300 MG CAPSULE PO SCH ×2 (09:02→15:16)
[2020-01-27] MEDS: DOCUSATE SODIUM 100 MG CAPSULE PO SCH (09:02)
[2020-01-27] MEDS: PANTOPRAZOLE 40 MG TABLET PO SCH (09:02)
[2020-01-27] MEDS: LOSARTAN 50 MG TABLET PO SCH (09:02)
[2020-01-27] MEDS ORDERED: GENTAMICIN INJ 100 MG in PREMIX 1 EACH IV ONE (12:56)
[2020-01-27] MEDS ORDERED: DIPHENOXYLATE/ATROPINE 2.5-0.025 MG TABLET PO PRN (16:26)
[2020-01-27 16:43] VITALS: BP 145/91
[2020-01-28] MEDS ORDERED: FOLIC ACID 1 MG TABLET PO SCH (09:00)
== END 2020-01-27 16:55 | disposition home health service (06) ==
LOC: N.TELEN
PROVIDERS: ADMIT Family Medicine; ATTEND Family Medicine

== ENCOUNTER 2020-02-27 02:56 | Observation (INO) ==
[2020-02-27] MEDS ORDERED: NITROGLYCERIN 2% OINT 1 INCH/GM PACK TOP ONE (03:17)
[2020-02-27] MEDS ORDERED: NITROGLYCERIN 2% OINT 1 INCH/GM PACK TOP STA (03:29)
[2020-02-27 03:31] LABS: Basophils % 0.1 % (0.0-0.8); Eosinophils % 0.1 % (0.00-10.9); Hematocrit 30.5 VOL% (35.7-47.0); Hemoglobin 8.7 GM/DL (12.0-16.0); Immature Granulocytes % 0.8 %; Immature Granulocytes Absolute 0.08 #; Lymphocytes # 1.4 10*3/uL (1.4-4.0); Lymphocytes % 13.5 % (21.3-54.2); Mean Corpuscular HGB Conc 28.5 GM/DL (32-36); Mean Corpuscular Volume 95.3 FL (87-102); Mean Platelet Volume 11.7 FL (9.6-12.0); Monocytes % 4.3 % (1.7-12.7); Neutrophils % 81.2 % (38.7-73.9); Platelet Count 174 T/CUMM (130-400); Red Cell Distribution Width 20.2 % (9.3-17.3); White Blood Count 10.1 T/CUMM (4-12)
[2020-02-27 03:38] LABS: Alanine Aminotransferase 20 U/L (13-56); Alkaline Phosphatase 73 U/L (45-117); Aspartate Amino Transferase 18 U/L (0-37); Bilirubin,Total < 0.39 MG/DL (0.2-1.0); Blood Urea Nitrogen 67 MG/DL (7-18); Calcium 8.2 MG/DL (8.5-10.1); Estimated Glom Filtration Rate 7 ML/MIN; Glucose 97 MG/DL (74-106); Osmolality,Calculated 299.3 MOS/KG (273-304); Total Protein 6.1 G/DL (6.4-8.3)
[2020-02-27 03:58] LABS: PT Patient Result 10.6 SECS (9.8-11.9); Partial Thromboplastin Time 23.9 SECS (23.9-33.8)
[2020-02-27] MEDS ORDERED: hydrALAZINE 20 MG/1 ML VIAL IV STA ×2 (04:04→04:07)
[2020-02-27] MEDS ORDERED: hydrALAZINE 20 MG/1 ML VIAL ONE (04:05)
[2020-02-27] MEDS ORDERED: ONDANSETRON 4 MG/2 ML VIAL IV PRN (04:06)
[2020-02-27] MEDS ORDERED: INSULIN REGULAR 100 UNIT/ML IV STA (04:07)
[2020-02-27] MEDS ORDERED: DEXTROSE 50% 25 GM/50 ML VIAL IV STA (04:07)
[2020-02-27] MEDS ORDERED: DEXTROSE 50% 25 GM/50 ML SYRINGE IV ONE (04:16)
[2020-02-27 04:23] LABS: Hypochromasia 1+; Platelet Estimate Adequate
[2020-02-27 04:27] LABS: Microcytosis Slight
[2020-02-27] MEDS: amLODIPine 10 MG TABLET PO SCH (09:15)
[2020-02-27] MEDS: PANTOPRAZOLE 40 MG TABLET PO SCH (09:15)
[2020-02-27] MEDS ORDERED: hydrALAZINE 25 MG TABLET PO SCH (09:30)
[2020-02-27] MEDS ORDERED: cloNIDine 0.1 MG TABLET PO PRN (14:46)
[2020-02-27] MEDS ORDERED: FUROSEMIDE 40 MG/4 ML VIAL IV PRN (14:49)
[2020-02-27] MEDS ORDERED: ATORVASTATIN 40 MG TABLET PO SCH (21:00)
[2020-02-27] MEDS: GABAPENTIN 300 MG CAPSULE PO SCH (22:38)
[2020-02-27] MEDS: predniSONE 20 MG TABLET PO SCH (22:38)
[2020-02-27] MEDS: carvediloL 25 MG TABLET PO SCH (22:38)
[2020-02-28 05:23] LABS: Basophils % 0.2 % (0.0-0.8); Eosinophils % 0.2 % (0.00-10.9); Hematocrit 29.2 VOL% (35.7-47.0); Hemoglobin 8.5 GM/DL (12.0-16.0); Immature Granulocytes % 0.8 %; Immature Granulocytes Absolute 0.04 #; Lymphocytes # 0.7 10*3/uL (1.4-4.0); Lymphocytes % 13.6 % (21.3-54.2); Mean Corpuscular HGB Conc 29.1 GM/DL (32-36); Mean Corpuscular Volume 94.5 FL (87-102); Mean Platelet Volume 11.6 FL (9.6-12.0); Monocytes % 3.4 % (1.7-12.7); Neutrophils % 81.8 % (38.7-73.9); Platelet Count 144 T/CUMM (130-400); Red Blood Count 3.09 MC/CUMM (3.8-5.5); White Blood Count 5.2 T/CUMM (4-12)
[2020-02-28 05:38] LABS: Calcium 8.2 MG/DL (8.5-10.1); Osmolality,Calculated 284.5 MOS/KG (273-304)
[2020-02-28] MEDS ORDERED: CLOPIDOGREL 75 MG TABLET PO SCH (09:00)
[2020-02-28] MEDS ORDERED: FOLIC ACID 1 MG TABLET PO SCH (09:00)
[2020-02-28] MEDS ORDERED: SERTRALINE 50 MG TABLET PO SCH (09:00)
[2020-02-28] MEDS: carvediloL 25 MG TABLET PO SCH ×2 (09:50→16:07)
[2020-02-28] MEDS: amLODIPine 10 MG TABLET PO SCH (09:50)
[2020-02-28] MEDS: PANTOPRAZOLE 40 MG TABLET PO SCH (13:05)
[2020-02-28] MEDS: GABAPENTIN 300 MG CAPSULE PO SCH ×2 (13:05→16:07)
[2020-02-28] MEDS: predniSONE 20 MG TABLET PO SCH (13:05)
[2020-02-28] MEDS ORDERED: HEPARIN 10,000 UNIT/10 ML VIAL IV SCH (13:15)
[2020-02-28 16:07] VITALS: BP 116/84
== END 2020-02-28 15:56 | disposition home or self-care (01) ==
LOC: EDBD → EDUNIT# → N.EDINP 02:56 → N.ED 02:56 → N.TELEN 20:30
PROVIDERS: ADMIT Family Medicine; ATTEND Family Medicine

== ENCOUNTER 2020-08-25 12:04 | Inpatient (IN) ==
[2020-08-25 12:52] LABS: Basophils % 0.3 % (0.0-0.8); Eosinophils % 0.3 % (0.00-10.9); Hematocrit 26.5 VOL% (35.7-47.0); Hemoglobin 8.4 GM/DL (12.0-16.0); Immature Granulocytes % 0.5 %; Immature Granulocytes Absolute 0.02 #; Lymphocytes # 0.6 10*3/uL (1.4-4.0); Lymphocytes % 15.1 % (21.3-54.2); Mean Corpuscular HGB Conc 31.7 GM/DL (32-36); Mean Corpuscular Volume 86.3 FL (87-102); Mean Platelet Volume 11.9 FL (9.6-12.0); Monocytes % 11.2 % (1.7-12.7); Neutrophils % 72.6 % (38.7-73.9); Platelet Count 210 T/CUMM (130-400); Red Blood Count 3.07 MC/CUMM (3.8-5.5); Red Cell Distribution Width 18.7 % (9.3-17.3); White Blood Count 3.8 T/CUMM (4-12)
[2020-08-25 13:06] LABS: PT Patient Result 11.5 SECS (10.5-12.0)
[2020-08-25 13:18] LABS: Albumin 2.9 G/DL (3.4-5.0); Bilirubin,Total 0.4 MG/DL (0.2-1.0); Calcium 8.3 MG/DL (8.5-10.1); Osmolality,Calculated 279.3 MOS/KG (273-304); Total Protein 6.6 G/DL (6.4-8.2)
[2020-08-25 13:23] LABS: Potassium 2.5 MMOL/L (3.5-5.1)
[2020-08-25] MEDS ORDERED: POTASSIUM CHLORIDE 20 MEQ TABLET PO STA (13:28)
[2020-08-25] MEDS ORDERED: cefTRIAXone 1,000 MG in SODIUM CHLORIDE 0.9% 100 ML IV STA (15:42)
[2020-08-25] MEDS ORDERED: ONDANSETRON 4 MG/2 ML VIAL IV PRN (15:49)
[2020-08-25] MEDS ORDERED: DEXTROSE 50% 25 GM/50 ML VIAL IV PRN (15:49)
[2020-08-25] MEDS ORDERED: DOCUSATE SODIUM 100 MG CAPSULE PO PRN (15:49)
[2020-08-25] MEDS ORDERED: GLUCAGON 1 MG VIAL IM PRN (15:49)
[2020-08-25] MEDS ORDERED: ALBUTEROL/IPRATROPIUM 3 ML NEB RESP TX SCH (16:00)
[2020-08-25] MEDS ORDERED: HEPARIN 5,000 UNIT/1 ML VIAL SUBCUT SCH (16:00)
[2020-08-25] MEDS ORDERED: methylPREDNISolone SOD SUC 40 MG/1 ML VIAL IV SCH (16:00)
[2020-08-25] MEDS ORDERED: MORPHINE 4 MG/1 ML VIAL IV PRN (16:04)
[2020-08-25] MEDS ORDERED: ACETAMINOPHEN 325 MG TABLET PO PRN (16:04)
[2020-08-25] MEDS ORDERED: ONDANSETRON ODT 4 MG TABLET PO PRN (16:09)
[2020-08-25] MEDS ORDERED: LOPERAMIDE 2 MG CAPSULE PO PRN (16:15)
[2020-08-25] MEDS: PANTOPRAZOLE 40 MG TABLET PO SCH (16:40)
[2020-08-25] MEDS: AZITHROMYCIN INJ 500 MG in SODIUM CHLORIDE 0.9% 250 ML IV SCH (16:40)
[2020-08-25] MEDS ORDERED: cloNIDine 0.1 MG TABLET PO PRN (18:35)
[2020-08-25] MEDS ORDERED: MAGNESIUM SULF RIDER 2 GM/50 ML PREMIX IV PRN (18:41)
[2020-08-25] MEDS ORDERED: MAGNESIUM SULF RIDER 4 GM/100 ML PREMIX IV PRN (18:41)
[2020-08-25] MEDS ORDERED: BACITRACIN OINT 28.35 GM TUBE TOP PRN (18:55)
[2020-08-25] MEDS: ALBUTEROL/IPRATROPIUM 3 ML NEB RESP TX SCH (19:11)
[2020-08-25] MEDS: GABAPENTIN 300 MG CAPSULE PO SCH (21:09)
[2020-08-25] MEDS: FUROSEMIDE 20 MG TABLET PO SCH (21:09)
[2020-08-25] MEDS: ATORVASTATIN 40 MG TABLET PO SCH (21:09)
[2020-08-25] MEDS: HEPARIN 5,000 UNIT/1 ML VIAL SUBCUT SCH (21:09)
[2020-08-25] MEDS: predniSONE 20 MG TABLET PO SCH (21:09)
[2020-08-25] MEDS: POTASSIUM CHLORIDE 20 MEQ TABLET PO PRN ×2 (21:10→23:02)
[2020-08-25] MEDS: SILDENAFIL 50 MG PO SCH (21:10)
[2020-08-25] MEDS: BACITRACIN OINT 0.9 GM PACK TOP PRN (21:11)
[2020-08-25] MEDS: LIDOCAINE 2% VISCOUS 100 ML BOTTLE SWISH/SPIT PRN (21:11)
[2020-08-26] MEDS: ALBUTEROL/IPRATROPIUM 3 ML NEB RESP TX SCH ×4 (00:03→19:00)
[2020-08-26] MEDS: POTASSIUM CHLORIDE 20 MEQ TABLET PO PRN ×2 (01:03→02:56)
[2020-08-26 04:16] LABS: Hemoglobin 7.7 GM/DL (12.0-16.0); Immature Granulocytes % 1.2 %; Immature Granulocytes Absolute 0.02 #; Lymphocytes # 0.3 10*3/uL (1.4-4.0); Lymphocytes % 16.2 % (21.3-54.2); Mean Corpuscular HGB Conc 30.8 GM/DL (32-36); Mean Corpuscular Volume 88.7 FL (87-102); Mean Platelet Volume 11.2 FL (9.6-12.0); Monocytes % 8.1 % (1.7-12.7); Neutrophils % 74.5 % (38.7-73.9); Platelet Count 175 T/CUMM (130-400); Red Blood Count 2.82 MC/CUMM (3.8-5.5); Red Cell Distribution Width 18.6 % (9.3-17.3); White Blood Count 1.7 T/CUMM (4-12)
[2020-08-26 04:42] LABS: Alanine Aminotransferase 17 U/L (13-56); Albumin 2.6 G/DL (3.4-5.0); Alkaline Phosphatase 43 U/L (45-117); Aspartate Amino Transferase 19 U/L (0-37); Bilirubin,Total < 0.39 MG/DL (0.2-1.0); Blood Urea Nitrogen 14 MG/DL (7-18); Carbon Dioxide 36 MMOL/L (21-32); Estimated Glom Filtration Rate 11 ML/MIN; Glucose 108 MG/DL (74-106); Osmolality,Calculated 287.8 MOS/KG (273-304); Potassium 4.7 MMOL/L (3.5-5.1); Sodium 144 MMOL/L (136-145); Total Protein 5.9 G/DL (6.4-8.2)
[2020-08-26 04:44] LABS: Risk Ratio 3.85; VLDL CHOLESTEROL 23.4 MG/DL
[2020-08-26 05:40] LABS: Anisocytosis 1+; Band Neutrophils 6 % (0-10); Lymphocytes 8 % (20-55); Platelet Estimate Normal; Segmented Neutrophils 79 % (50-85); Total Cells Counted 100
[2020-08-26 05:41] LABS: Poikilocytosis Slight
[2020-08-26] MEDS: LIDOCAINE 2% VISCOUS 100 ML BOTTLE SWISH/SPIT PRN (08:11)
[2020-08-26] MEDS: BACITRACIN OINT 0.9 GM PACK TOP PRN ×2 (08:11→21:30)
[2020-08-26] MEDS: PANTOPRAZOLE 40 MG TABLET PO SCH (08:13)
[2020-08-26] MEDS: GABAPENTIN 300 MG CAPSULE PO SCH ×3 (08:13→21:29)
[2020-08-26] MEDS: FUROSEMIDE 20 MG TABLET PO SCH ×2 (08:13→15:43)
[2020-08-26] MEDS: METOPROLOL TARTRATE 25 MG TABLET PO SCH (08:13)
[2020-08-26] MEDS: POTASSIUM CHLORIDE 20 MEQ TABLET PO SCH (08:13)
[2020-08-26] MEDS: predniSONE 20 MG TABLET PO SCH (08:13)
[2020-08-26] MEDS: amLODIPine 10 MG TABLET PO SCH (08:13)
[2020-08-26] MEDS: HEPARIN 5,000 UNIT/1 ML VIAL SUBCUT SCH ×2 (08:14→21:29)
[2020-08-26] MEDS: SERTRALINE 50 MG TABLET PO SCH (08:14)
[2020-08-26] MEDS: AZITHROMYCIN INJ 500 MG in SODIUM CHLORIDE 0.9% 250 ML IV SCH (08:15)
[2020-08-26] MEDS: minoxidiL 2.5 MG TABLET PO SCH (14:31)
[2020-08-26] MEDS: SILDENAFIL 50 MG PO SCH (14:31)
[2020-08-26] MEDS: cefTRIAXone 2,000 MG in SODIUM CHLORIDE 0.9% 100 ML IV SCH (15:42)
[2020-08-26] MEDS: NYSTATIN 500,000 UNIT/5 ML UDCUP SWISH/SWAL SCH ×2 (16:27→21:28)
[2020-08-26] MEDS: methylPREDNISolone SOD SUC 40 MG/1 ML VIAL IV SCH ×2 (16:31→22:25)
[2020-08-26] MEDS: ATORVASTATIN 40 MG TABLET PO SCH (21:29)
[2020-08-27] MEDS: ALBUTEROL/IPRATROPIUM 3 ML NEB RESP TX SCH ×4 (00:04→19:51)
[2020-08-27] MEDS: SILDENAFIL 50 MG PO SCH ×3 (04:29→21:09)
[2020-08-27 04:55] LABS: Hematocrit 24.2 VOL% (35.7-47.0); Hemoglobin 7.4 GM/DL (12.0-16.0); Immature Granulocytes % 0.5 %; Immature Granulocytes Absolute 0.01 #; Lymphocytes # 0.3 10*3/uL (1.4-4.0); Lymphocytes % 13.3 % (21.3-54.2); Mean Corpuscular HGB Conc 30.6 GM/DL (32-36); Mean Corpuscular Volume 89.3 FL (87-102); Mean Platelet Volume 12.2 FL (9.6-12.0); Monocytes % 10.1 % (1.7-12.7); Neutrophils % 76.1 % (38.7-73.9); Platelet Count 182 T/CUMM (130-400); Red Blood Count 2.71 MC/CUMM (3.8-5.5); Red Cell Distribution Width 18.6 % (9.3-17.3); White Blood Count 2.2 T/CUMM (4-12)
[2020-08-27 05:09] LABS: Calcium 8.2 MG/DL (8.5-10.1); Osmolality,Calculated 283.7 MOS/KG (273-304); Potassium 4.6 MMOL/L (3.5-5.1)
[2020-08-27] MEDS: POTASSIUM CHLORIDE 20 MEQ TABLET PO SCH (09:36)
[2020-08-27] MEDS: METOPROLOL TARTRATE 25 MG TABLET PO SCH (09:36)
[2020-08-27] MEDS: SERTRALINE 50 MG TABLET PO SCH (09:36)
[2020-08-27] MEDS: NYSTATIN 500,000 UNIT/5 ML UDCUP SWISH/SWAL SCH ×4 (09:36→21:07)
[2020-08-27] MEDS: HEPARIN 5,000 UNIT/1 ML VIAL SUBCUT SCH ×2 (09:36→21:08)
[2020-08-27] MEDS: GABAPENTIN 300 MG CAPSULE PO SCH ×3 (09:36→21:08)
[2020-08-27] MEDS: amLODIPine 10 MG TABLET PO SCH (09:36)
[2020-08-27] MEDS: PANTOPRAZOLE 40 MG TABLET PO SCH (09:36)
[2020-08-27] MEDS: minoxidiL 2.5 MG TABLET PO SCH (09:36)
[2020-08-27] MEDS: FUROSEMIDE 20 MG TABLET PO SCH ×2 (09:36→16:22)
[2020-08-27] MEDS: methylPREDNISolone SOD SUC 40 MG/1 ML VIAL IV SCH ×2 (09:44→21:09)
[2020-08-27] MEDS: AZITHROMYCIN INJ 500 MG in SODIUM CHLORIDE 0.9% 250 ML IV SCH (09:45)
[2020-08-27] MEDS: ACETAMINOPHEN 325 MG TABLET PO PRN (12:24)
[2020-08-27] MEDS: cefTRIAXone 2,000 MG in SODIUM CHLORIDE 0.9% 100 ML IV SCH (16:23)
[2020-08-27] MEDS: ATORVASTATIN 40 MG TABLET PO SCH (21:08)
[2020-08-27 21:36] LABS: Bilirubin,Urine Negative (Negative); Blood, Urine Negative (Negative); Glucose,Urine (UA) Negative (Negative); Ketones,Urine Negative (Negative); Mucus,Urine Occasional /LPF (Occasional); Nitrite,Urine Negative (Negative); Protein,Urine >=500 MG/DL; RBC,Urine <1 /HPF (0-4); Squamous Epithelial Cell,Urine Few /HPF (0-10); Urine Appearance Slightly Hazy (Clear); Urine Color Yellow (Yellow); Urine Urobilinogen < 2.0 EU/DL (0.2-1.0)
[2020-08-28] MEDS: ALBUTEROL/IPRATROPIUM 3 ML NEB RESP TX SCH ×4 (01:06→19:40)
[2020-08-28 04:35] LABS: Hematocrit 24.7 VOL% (35.7-47.0); Hemoglobin 7.5 GM/DL (12.0-16.0); Immature Granulocytes % 0.9 %; Immature Granulocytes Absolute 0.05 #; Lymphocytes # 0.3 10*3/uL (1.4-4.0); Lymphocytes % 4.7 % (21.3-54.2); Mean Corpuscular HGB Conc 30.4 GM/DL (32-36); Mean Corpuscular Volume 89.5 FL (87-102); Mean Platelet Volume 11.4 FL (9.6-12.0); Monocytes % 9.8 % (1.7-12.7); Neutrophils % 84.6 % (38.7-73.9); Platelet Count 204 T/CUMM (130-400); Red Blood Count 2.76 MC/CUMM (3.8-5.5); Red Cell Distribution Width 18.3 % (9.3-17.3); White Blood Count 5.3 T/CUMM (4-12)
[2020-08-28 04:55] LABS: Calcium 8.2 MG/DL (8.5-10.1); Osmolality,Calculated 288.7 MOS/KG (273-304); Potassium 5.3 MMOL/L (3.5-5.1)
[2020-08-28 04:59] LABS: Lymphocytes 5 % (20-55); Platelet Estimate Adequate; Segmented Neutrophils 91 % (50-85); Total Cells Counted 100
[2020-08-28 05:00] LABS: Hypochromasia 1+; Microcytosis 1+
[2020-08-28] MEDS: ACETAMINOPHEN 325 MG TABLET PO PRN ×2 (05:01→13:03)
[2020-08-28] MEDS: GABAPENTIN 300 MG CAPSULE PO SCH ×3 (09:09→21:43)
[2020-08-28] MEDS: minoxidiL 2.5 MG TABLET PO SCH (09:09)
[2020-08-28] MEDS: POTASSIUM CHLORIDE 20 MEQ TABLET PO SCH (09:10)
[2020-08-28] MEDS: METOPROLOL TARTRATE 25 MG TABLET PO SCH (09:10)
[2020-08-28] MEDS: NYSTATIN 500,000 UNIT/5 ML UDCUP SWISH/SWAL SCH ×4 (09:10→21:43)
[2020-08-28] MEDS: amLODIPine 10 MG TABLET PO SCH (09:10)
[2020-08-28] MEDS: SERTRALINE 50 MG TABLET PO SCH (09:10)
[2020-08-28] MEDS: PANTOPRAZOLE 40 MG TABLET PO SCH (09:11)
[2020-08-28] MEDS: SILDENAFIL 50 MG PO SCH ×2 (09:11→21:43)
[2020-08-28] MEDS: methylPREDNISolone SOD SUC 40 MG/1 ML VIAL IV SCH ×2 (09:11→21:43)
[2020-08-28] MEDS: HEPARIN 5,000 UNIT/1 ML VIAL SUBCUT SCH ×2 (09:11→21:43)
[2020-08-28] MEDS: FUROSEMIDE 20 MG TABLET PO SCH ×2 (09:20→15:07)
[2020-08-28] MEDS ORDERED: SODIUM CHLORIDE 0.9% 1,000 ML IV PRN (09:53)
[2020-08-28] MEDS ORDERED: HEPARIN 10,000 UNIT/10 ML VIAL IV SCH (11:30)
[2020-08-28] MEDS: AZITHROMYCIN INJ 500 MG in SODIUM CHLORIDE 0.9% 250 ML IV SCH (13:04)
[2020-08-28] MEDS: cefTRIAXone 2,000 MG in SODIUM CHLORIDE 0.9% 100 ML IV SCH (15:11)
[2020-08-28] MEDS: ATORVASTATIN 40 MG TABLET PO SCH (21:43)
[2020-08-29] MEDS: ALBUTEROL/IPRATROPIUM 3 ML NEB RESP TX SCH ×4 (01:10→19:30)
[2020-08-29 05:02] LABS: Hematocrit 31.5 VOL% (35.7-47.0); Immature Granulocytes % 1.3 %; Immature Granulocytes Absolute 0.07 #; Lymphocytes # 0.3 10*3/uL (1.4-4.0); Lymphocytes % 4.5 % (21.3-54.2); Mean Corpuscular HGB Conc 31.4 GM/DL (32-36); Mean Corpuscular Volume 89.5 FL (87-102); Mean Platelet Volume 11.5 FL (9.6-12.0); Monocytes % 8.2 % (1.7-12.7); Platelet Count 171 T/CUMM (130-400); Red Cell Distribution Width 17.9 % (9.3-17.3); White Blood Count 5.5 T/CUMM (4-12)
[2020-08-29 05:23] LABS: Hemoglobin 9.9 GM/DL (12.0-16.0); Red Blood Count 3.52 MC/CUMM (3.8-5.5)
[2020-08-29 05:27] LABS: Calcium 7.8 MG/DL (8.5-10.1); Osmolality,Calculated 286.5 MOS/KG (273-304); Potassium 5.1 MMOL/L (3.5-5.1)
[2020-08-29 05:32] LABS: Hypochromasia 1+; Lymphocytes 7 % (20-55); Microcytosis 1+; Ovalocytes Slight; Platelet Estimate Adequate; Segmented Neutrophils 90 % (50-85); Total Cells Counted 100
[2020-08-29] MEDS: SERTRALINE 50 MG TABLET PO SCH (08:33)
[2020-08-29] MEDS: minoxidiL 2.5 MG TABLET PO SCH (08:33)
[2020-08-29] MEDS: PANTOPRAZOLE 40 MG TABLET PO SCH (08:33)
[2020-08-29] MEDS: FUROSEMIDE 20 MG TABLET PO SCH ×2 (08:33→15:00)
[2020-08-29] MEDS: METOPROLOL TARTRATE 25 MG TABLET PO SCH (08:33)
[2020-08-29] MEDS: POTASSIUM CHLORIDE 20 MEQ TABLET PO SCH (08:33)
[2020-08-29] MEDS: HEPARIN 5,000 UNIT/1 ML VIAL SUBCUT SCH ×2 (08:34→20:32)
[2020-08-29] MEDS: amLODIPine 10 MG TABLET PO SCH (08:34)
[2020-08-29] MEDS: GABAPENTIN 300 MG CAPSULE PO SCH ×3 (08:34→20:32)
[2020-08-29] MEDS: NYSTATIN 500,000 UNIT/5 ML UDCUP SWISH/SWAL SCH ×4 (08:34→20:31)
[2020-08-29] MEDS: AZITHROMYCIN INJ 500 MG in SODIUM CHLORIDE 0.9% 250 ML IV SCH (08:35)
[2020-08-29] MEDS: methylPREDNISolone SOD SUC 40 MG/1 ML VIAL IV SCH ×2 (09:03→22:18)
[2020-08-29] MEDS: ACETAMINOPHEN 325 MG TABLET PO PRN (09:03)
[2020-08-29] MEDS: SILDENAFIL 50 MG PO SCH ×2 (09:05→21:19)
[2020-08-29] MEDS: cefTRIAXone 2,000 MG in SODIUM CHLORIDE 0.9% 100 ML IV SCH (15:00)
[2020-08-29] MEDS ORDERED: FLUCONAZOLE 150 MG TABLET PO ONE (17:38)
[2020-08-29] MEDS: MICONAZOLE 2% VAG CREAM 45 GM TUBE VAG SCH (20:32)
[2020-08-29] MEDS: ATORVASTATIN 40 MG TABLET PO SCH (20:32)
[2020-08-29] MEDS: TRIAMCINOLONE 0.1% OINT 15 GM TUBE TOP SCH (20:32)
[2020-08-30] MEDS: ALBUTEROL/IPRATROPIUM 3 ML NEB RESP TX SCH ×4 (00:51→19:21)
[2020-08-30 05:15] LABS: Basophils % 0.2 % (0.0-0.8); Hematocrit 34.2 VOL% (35.7-47.0); Hemoglobin 10.8 GM/DL (12.0-16.0); Immature Granulocytes % 1.3 %; Immature Granulocytes Absolute 0.08 #; Lymphocytes # 0.2 10*3/uL (1.4-4.0); Mean Corpuscular HGB Conc 31.6 GM/DL (32-36); Mean Corpuscular Volume 88.8 FL (87-102); Mean Platelet Volume 10.6 FL (9.6-12.0); Monocytes % 5.6 % (1.7-12.7); Neutrophils % 88.9 % (38.7-73.9); Platelet Count 194 T/CUMM (130-400); Red Blood Count 3.85 MC/CUMM (3.8-5.5); Red Cell Distribution Width 18.2 % (9.3-17.3); White Blood Count 5.9 T/CUMM (4-12)
[2020-08-30 05:34] LABS: Calcium 7.9 MG/DL (8.5-10.1); Osmolality,Calculated 295.4 MOS/KG (273-304)
[2020-08-30 05:38] LABS: Lymphocytes 6 % (20-55); Segmented Neutrophils 93 % (50-85); Total Cells Counted 100
[2020-08-30 05:39] LABS: Anisocytosis 1+; Hypochromasia Slight; Microcytosis 1+; Ovalocytes Few; Platelet Estimate Adequate
[2020-08-30 06:25] LABS: Potassium 6.2 MMOL/L (3.5-5.1)
[2020-08-30] MEDS: GABAPENTIN 300 MG CAPSULE PO SCH ×3 (09:34→20:59)
[2020-08-30] MEDS: minoxidiL 2.5 MG TABLET PO SCH (09:34)
[2020-08-30] MEDS: PANTOPRAZOLE 40 MG TABLET PO SCH (09:35)
[2020-08-30] MEDS: NYSTATIN 500,000 UNIT/5 ML UDCUP SWISH/SWAL SCH ×4 (09:35→21:00)
[2020-08-30] MEDS: FUROSEMIDE 20 MG TABLET PO SCH ×2 (09:35→17:30)
[2020-08-30] MEDS: SERTRALINE 50 MG TABLET PO SCH (09:35)
[2020-08-30] MEDS: TRIAMCINOLONE 0.1% OINT 15 GM TUBE TOP SCH ×2 (09:36→21:00)
[2020-08-30] MEDS: SILDENAFIL 50 MG PO SCH ×2 (09:44→21:01)
[2020-08-30] MEDS: METOPROLOL TARTRATE 25 MG TABLET PO SCH (10:02)
[2020-08-30] MEDS: HEPARIN 5,000 UNIT/1 ML VIAL SUBCUT SCH ×2 (10:02→20:59)
[2020-08-30] MEDS: POTASSIUM CHLORIDE 20 MEQ TABLET PO SCH (10:02)
[2020-08-30] MEDS: amLODIPine 10 MG TABLET PO SCH (10:03)
[2020-08-30] MEDS: methylPREDNISolone SOD SUC 40 MG/1 ML VIAL IV SCH ×2 (13:40→22:14)
[2020-08-30] MEDS: AZITHROMYCIN INJ 500 MG in SODIUM CHLORIDE 0.9% 250 ML IV SCH (13:41)
[2020-08-30] MEDS: CETIRIZINE 5 MG TABLET PO SCH (17:30)
[2020-08-30] MEDS: cefTRIAXone 2,000 MG in SODIUM CHLORIDE 0.9% 100 ML IV SCH (17:31)
[2020-08-30] MEDS: guaiFENesin/DM ER 600-30 MG TABLET PO PRN (20:59)
[2020-08-30] MEDS: ATORVASTATIN 40 MG TABLET PO SCH (20:59)
[2020-08-30] MEDS: MICONAZOLE 2% VAG CREAM 45 GM TUBE VAG SCH (21:01)
[2020-08-31] MEDS: ALBUTEROL/IPRATROPIUM 3 ML NEB RESP TX SCH ×4 (01:33→19:11)
[2020-08-31 04:29] LABS: Basophils % 0.2 % (0.0-0.8); Hematocrit 32.7 VOL% (35.7-47.0); Hemoglobin 10.3 GM/DL (12.0-16.0); Lymphocytes # 0.3 10*3/uL (1.4-4.0); Lymphocytes % 5.6 % (21.3-54.2); Mean Corpuscular HGB Conc 31.5 GM/DL (32-36); Mean Corpuscular Volume 89.6 FL (87-102); Mean Platelet Volume 11.1 FL (9.6-12.0); Neutrophils % 83.2 % (38.7-73.9); Platelet Count 161 T/CUMM (130-400); Red Blood Count 3.65 MC/CUMM (3.8-5.5)
[2020-08-31 04:52] LABS: Osmolality,Calculated 286.5 MOS/KG (273-304); Potassium 5.5 MMOL/L (3.5-5.1)
[2020-08-31] MEDS: NYSTATIN 500,000 UNIT/5 ML UDCUP SWISH/SWAL SCH ×4 (10:11→21:49)
[2020-08-31] MEDS: CETIRIZINE 5 MG TABLET PO SCH (10:11)
[2020-08-31] MEDS: amLODIPine 10 MG TABLET PO SCH (10:11)
[2020-08-31] MEDS: minoxidiL 2.5 MG TABLET PO SCH (10:12)
[2020-08-31] MEDS: FUROSEMIDE 20 MG TABLET PO SCH ×2 (10:12→16:06)
[2020-08-31] MEDS: HEPARIN 5,000 UNIT/1 ML VIAL SUBCUT SCH ×2 (10:13→21:49)
[2020-08-31] MEDS: PANTOPRAZOLE 40 MG TABLET PO SCH (10:13)
[2020-08-31] MEDS: GABAPENTIN 300 MG CAPSULE PO SCH ×3 (10:13→21:49)
[2020-08-31] MEDS: METOPROLOL TARTRATE 25 MG TABLET PO SCH (10:13)
[2020-08-31] MEDS: SILDENAFIL 50 MG PO SCH ×2 (10:14→21:49)
[2020-08-31] MEDS: methylPREDNISolone SOD SUC 40 MG/1 ML VIAL IV SCH ×2 (10:14→21:49)
[2020-08-31] MEDS: SERTRALINE 50 MG TABLET PO SCH (10:22)
[2020-08-31] MEDS: POTASSIUM CHLORIDE 20 MEQ TABLET PO SCH (10:24)
[2020-08-31] MEDS: TRIAMCINOLONE 0.1% OINT 15 GM TUBE TOP SCH ×2 (10:26→21:49)
[2020-08-31] MEDS: AZITHROMYCIN INJ 500 MG in SODIUM CHLORIDE 0.9% 250 ML IV SCH (11:06)
[2020-08-31] MEDS: guaiFENesin/DM ER 600-30 MG TABLET PO PRN (11:16)
[2020-08-31] MEDS: cefTRIAXone 2,000 MG in SODIUM CHLORIDE 0.9% 100 ML IV SCH (16:07)
[2020-08-31] MEDS: ATORVASTATIN 40 MG TABLET PO SCH (21:49)
[2020-08-31] MEDS: MICONAZOLE 2% VAG CREAM 45 GM TUBE VAG SCH (21:49)
[2020-09-01] MEDS: ALBUTEROL/IPRATROPIUM 3 ML NEB RESP TX SCH ×4 (00:50→20:43)
[2020-09-01] MEDS: FUROSEMIDE 20 MG TABLET PO SCH ×2 (07:28→15:07)
[2020-09-01] MEDS: POTASSIUM CHLORIDE 20 MEQ TABLET PO SCH (10:25)
[2020-09-01] MEDS: minoxidiL 2.5 MG TABLET PO SCH (10:25)
[2020-09-01] MEDS: PANTOPRAZOLE 40 MG TABLET PO SCH (10:25)
[2020-09-01] MEDS: METOPROLOL TARTRATE 25 MG TABLET PO SCH (10:25)
[2020-09-01] MEDS: NYSTATIN 500,000 UNIT/5 ML UDCUP SWISH/SWAL SCH ×4 (10:26→21:20)
[2020-09-01] MEDS: SERTRALINE 50 MG TABLET PO SCH (10:26)
[2020-09-01] MEDS: GABAPENTIN 300 MG CAPSULE PO SCH ×3 (10:26→21:20)
[2020-09-01] MEDS: CETIRIZINE 5 MG TABLET PO SCH (10:26)
[2020-09-01] MEDS: methylPREDNISolone SOD SUC 40 MG/1 ML VIAL IV SCH ×2 (10:27→21:20)
[2020-09-01] MEDS: amLODIPine 10 MG TABLET PO SCH (10:27)
[2020-09-01] MEDS: HEPARIN 5,000 UNIT/1 ML VIAL SUBCUT SCH ×2 (10:27→21:20)
[2020-09-01] MEDS: TRIAMCINOLONE 0.1% OINT 15 GM TUBE TOP SCH ×2 (10:32→21:20)
[2020-09-01] MEDS: SILDENAFIL 50 MG PO SCH ×2 (11:08→21:20)
[2020-09-01] MEDS: AZITHROMYCIN INJ 500 MG in SODIUM CHLORIDE 0.9% 250 ML IV SCH (12:57)
[2020-09-01] MEDS: cefTRIAXone 2,000 MG in SODIUM CHLORIDE 0.9% 100 ML IV SCH (15:07)
[2020-09-01] MEDS: MICONAZOLE 2% VAG CREAM 45 GM TUBE VAG SCH (21:20)
[2020-09-01] MEDS: ATORVASTATIN 40 MG TABLET PO SCH (21:20)
[2020-09-02] MEDS: ALBUTEROL/IPRATROPIUM 3 ML NEB RESP TX SCH ×4 (00:34→19:00)
[2020-09-02 04:26] LABS: Basophils % 0.2 % (0.0-0.8); Hematocrit 34.3 VOL% (35.7-47.0); Hemoglobin 10.8 GM/DL (12.0-16.0); Immature Granulocytes % 3.3 %; Lymphocytes # 0.4 10*3/uL (1.4-4.0); Lymphocytes % 6.4 % (21.3-54.2); Mean Corpuscular HGB Conc 31.5 GM/DL (32-36); Mean Corpuscular Volume 89.1 FL (87-102); Mean Platelet Volume 11.6 FL (9.6-12.0); Monocytes % 10.7 % (1.7-12.7); Neutrophils % 79.4 % (38.7-73.9); Platelet Count 192 T/CUMM (130-400); Red Blood Count 3.85 MC/CUMM (3.8-5.5); Red Cell Distribution Width 18.2 % (9.3-17.3); White Blood Count 6.1 T/CUMM (4-12)
[2020-09-02 04:52] LABS: Alanine Aminotransferase 100 U/L (13-56); Albumin 2.9 G/DL (3.4-5.0); Alkaline Phosphatase 72 U/L (45-117); Aspartate Amino Transferase 36 U/L (0-37); Bilirubin,Total < 0.39 MG/DL (0.2-1.0); Blood Urea Nitrogen 42 MG/DL (7-18); Carbon Dioxide 28 MMOL/L (21-32); Estimated Glom Filtration Rate 11 ML/MIN; Glucose 109 MG/DL (74-106); Osmolality,Calculated 288.5 MOS/KG (273-304); Potassium 5.5 MMOL/L (3.5-5.1); Sodium 139 MMOL/L (136-145); Total Protein 6.3 G/DL (6.4-8.2); Uric Acid 4.4 MG/DL (2.6-6.0)
[2020-09-02] MEDS: FUROSEMIDE 20 MG TABLET PO SCH ×2 (07:14→15:26)
[2020-09-02] MEDS: PANTOPRAZOLE 40 MG TABLET PO SCH (09:44)
[2020-09-02] MEDS: NYSTATIN 500,000 UNIT/5 ML UDCUP SWISH/SWAL SCH ×4 (09:44→20:26)
[2020-09-02] MEDS: amLODIPine 10 MG TABLET PO SCH ×2 (09:44→09:46)
[2020-09-02] MEDS: CETIRIZINE 5 MG TABLET PO SCH (09:44)
[2020-09-02] MEDS: SERTRALINE 50 MG TABLET PO SCH (09:45)
[2020-09-02] MEDS: GABAPENTIN 300 MG CAPSULE PO SCH ×3 (09:45→20:26)
[2020-09-02] MEDS: minoxidiL 2.5 MG TABLET PO SCH (09:45)
[2020-09-02] MEDS: METOPROLOL TARTRATE 25 MG TABLET PO SCH (09:45)
[2020-09-02] MEDS: HEPARIN 5,000 UNIT/1 ML VIAL SUBCUT SCH ×2 (09:45→20:26)
[2020-09-02] MEDS: methylPREDNISolone SOD SUC 40 MG/1 ML VIAL IV SCH ×3 (09:46→22:12)
[2020-09-02] MEDS: TRIAMCINOLONE 0.1% OINT 15 GM TUBE TOP SCH ×2 (09:46→20:31)
[2020-09-02] MEDS: SILDENAFIL 50 MG PO SCH ×2 (10:01→20:31)
[2020-09-02] MEDS: POTASSIUM CHLORIDE 20 MEQ TABLET PO SCH (10:01)
[2020-09-02] MEDS: guaiFENesin/DM ER 600-30 MG TABLET PO PRN ×2 (10:05→20:33)
[2020-09-02] MEDS: cefTRIAXone 2,000 MG in SODIUM CHLORIDE 0.9% 100 ML IV SCH (15:28)
[2020-09-02] MEDS: ATORVASTATIN 40 MG TABLET PO SCH (20:26)
[2020-09-02] MEDS: MICONAZOLE 2% VAG CREAM 45 GM TUBE VAG SCH (20:31)
[2020-09-03] MEDS: ALBUTEROL/IPRATROPIUM 3 ML NEB RESP TX SCH ×3 (03:10→12:44)
[2020-09-03] MEDS: minoxidiL 2.5 MG TABLET PO SCH (09:00)
[2020-09-03] MEDS: PANTOPRAZOLE 40 MG TABLET PO SCH (09:00)
[2020-09-03] MEDS: FUROSEMIDE 20 MG TABLET PO SCH (09:00)
[2020-09-03] MEDS: METOPROLOL TARTRATE 25 MG TABLET PO SCH (09:00)
[2020-09-03] MEDS: GABAPENTIN 300 MG CAPSULE PO SCH (09:00)
[2020-09-03] MEDS: TRIAMCINOLONE 0.1% OINT 15 GM TUBE TOP SCH (09:01)
[2020-09-03] MEDS: NYSTATIN 500,000 UNIT/5 ML UDCUP SWISH/SWAL SCH (09:01)
[2020-09-03] MEDS: POTASSIUM CHLORIDE 20 MEQ TABLET PO SCH (09:01)
[2020-09-03] MEDS: HEPARIN 5,000 UNIT/1 ML VIAL SUBCUT SCH (09:01)
[2020-09-03] MEDS: SILDENAFIL 50 MG PO SCH (10:01)
[2020-09-03] MEDS: methylPREDNISolone SOD SUC 40 MG/1 ML VIAL IV SCH (10:02)
[2020-09-03] MEDS: CETIRIZINE 5 MG TABLET PO SCH (10:02)
[2020-09-03] MEDS: SERTRALINE 50 MG TABLET PO SCH (10:02)
[2020-09-03 11:32] VITALS: BP 137/72
== END 2020-09-03 15:20 | disposition home health service (06) | DRG 193 ==
LOC: N.ED 12:04 → N.EDINP 15:48 → SUATTDRO 15:48 → N.EDINP 17:00 → N.TELES 17:04
PROVIDERS: ADMIT Hospitalist; ATTEND Family Medicine

== ENCOUNTER 2020-11-15 07:00 | Inpatient (IN) ==
[2020-11-15] MEDS ORDERED: ACETAMINOPHEN 500 MG TABLET PO STA (07:02)
[2020-11-15] MEDS ORDERED: SODIUM CHLORIDE 0.9% 250 ML IV STA (07:32)
[2020-11-15 07:53] LABS: Basophils % 0.1 % (0.0-0.8); Hematocrit 45.2 VOL% (35.7-47.0); Hemoglobin 13.8 GM/DL (12.0-16.0); Immature Granulocytes % 0.5 %; Immature Granulocytes Absolute 0.06 #; Lymphocytes # 0.1 10*3/uL (1.4-4.0); Lymphocytes % 0.8 % (21.3-54.2); Mean Corpuscular HGB Conc 30.5 GM/DL (32-36); Mean Corpuscular Volume 90.8 FL (87-102); Mean Platelet Volume 12.2 FL (9.6-12.0); Monocytes % 5.7 % (1.7-12.7); Neutrophils % 92.9 % (38.7-73.9); Platelet Count 202 T/CUMM (130-400); Red Blood Count 4.98 MC/CUMM (3.8-5.5); Red Cell Distribution Width 18.1 % (9.3-17.3); White Blood Count 11.4 T/CUMM (4-12)
[2020-11-15 08:02] LABS: INR 0.9; PT Patient Result 10.4 SECS (10.5-12.0)
[2020-11-15 08:11] LABS: Band Neutrophils 2 % (0-10); Lymphocytes 2 % (20-55); Platelet Estimate Adequate; Segmented Neutrophils 94 % (50-85); Total Cells Counted 100
[2020-11-15 08:12] LABS: Burr Cells Slight; Ovalocytes Slight
[2020-11-15 08:14] LABS: Albumin 3.4 G/DL (3.4-5.0); Bilirubin,Total 1.2 MG/DL (0.20-1.00); Osmolality,Calculated 310.8 MOS/KG (273-304); Potassium 4.8 MMOL/L (3.5-5.1); Total Protein 7.4 G/DL (6.4-8.2)
[2020-11-15] MEDS ORDERED: DEXAMETHASONE 4 MG/1 ML VIAL IV STA (08:16)
[2020-11-15] MEDS ORDERED: MELATONIN 3 MG TABLET PO PRN (08:55)
[2020-11-15] MEDS ORDERED: ONDANSETRON 4 MG/2 ML VIAL IV PRN (08:55)
[2020-11-15] MEDS ORDERED: AZITHROMYCIN INJ 500 MG in SODIUM CHLORIDE 0.9% 250 ML IV ONE (08:55)
[2020-11-15] MEDS ORDERED: FAMOTIDINE 20 MG TABLET PO SCH (09:00)
[2020-11-15] MEDS ORDERED: LABETALOL 20 MG/4 ML SYRINGE IV ONE (09:42)
[2020-11-15] MEDS ORDERED: ETOMIDATE 20 MG/10 ML VIAL IV ONE (10:16)
[2020-11-15] MEDS ORDERED: ROCURONIUM 100 MG/10 ML VIAL IV ONE (10:16)
[2020-11-15 10:39] LABS: ABG Base Excess -8.2 MMOL/L (-2.5-2.5); ABG HCO3 17.9 MMOL/L (20-26); ABG Oxygen Saturation 98.1 % (95-100); ABG PCO2 42.6 MM HG (35-48); ABG PH 7.255 (7.35-7.45); ABG TCO2 16.8 MMOL/L (23-27)
[2020-11-15] MEDS ORDERED: DEXTROSE 50% 25 GM/50 ML VIAL IV PRN (11:22)
[2020-11-15] MEDS: DEXAMETHASONE 4 MG/1 ML VIAL IV SCH (11:37)
[2020-11-15] MEDS: HEPARIN 5,000 UNIT/1 ML VIAL SUBCUT SCH ×2 (11:37→17:11)
[2020-11-15] MEDS: CHOLECALCIFEROL 1,000 UNIT TABLET PO SCH (11:37)
[2020-11-15] MEDS: ASCORBIC ACID 500 MG TABLET PO SCH ×2 (11:37→20:42)
[2020-11-15] MEDS: ZINC GLUCONATE 50 MG TABLET PO SCH (11:37)
[2020-11-15] MEDS ORDERED: hydrALAZINE 20 MG/1 ML VIAL IV PRN (12:01)
[2020-11-15] MEDS: INSULIN REGULAR 100 UNIT/ML SUBCUT SCH ×3 (12:39→23:27)
[2020-11-15] MEDS: fentaNYL INJ 1,250 MCG in SODIUM CHLORIDE 0.9% 225 ML IV PRN (15:00)
[2020-11-15] MEDS: FAMOTIDINE 20 MG TABLET PO SCH (20:41)
[2020-11-16] MEDS: HEPARIN 5,000 UNIT/1 ML VIAL SUBCUT SCH ×3 (00:29→16:28)
[2020-11-16 04:07] LABS: ABG Base Excess -2.3 MMOL/L (-2.5-2.5); ABG HCO3 22.6 MMOL/L (20-26); ABG Oxygen Saturation 96.4 % (95-100); ABG PCO2 39.2 MM HG (35-48); ABG PH 7.379 (7.35-7.45); ABG TCO2 23.8 MMOL/L (23-27)
[2020-11-16] MEDS: INSULIN REGULAR 100 UNIT/ML SUBCUT SCH ×3 (06:27→21:03)
[2020-11-16] MEDS: ASCORBIC ACID 500 MG TABLET PO SCH ×2 (10:32→21:40)
[2020-11-16] MEDS: DEXAMETHASONE 4 MG/1 ML VIAL IV SCH (10:32)
[2020-11-16] MEDS: FAMOTIDINE 20 MG TABLET PO SCH ×2 (10:32→21:40)
[2020-11-16] MEDS: CHOLECALCIFEROL 1,000 UNIT TABLET PO SCH (10:32)
[2020-11-16] MEDS: ZINC GLUCONATE 50 MG TABLET PO SCH (10:33)
[2020-11-16] MEDS: AZITHROMYCIN 250 MG TABLET PO SCH (10:33)
[2020-11-16 10:57] LABS: Eosinophils % 0.2 % (0.00-10.9); Hematocrit 40.3 VOL% (35.7-47.0); Hemoglobin 12.7 GM/DL (12.0-16.0); Immature Granulocytes % 0.6 %; Immature Granulocytes Absolute 0.04 #; Lymphocytes # 0.3 10*3/uL (1.4-4.0); Lymphocytes % 4.5 % (21.3-54.2); Mean Corpuscular HGB Conc 31.5 GM/DL (32-36); Mean Corpuscular Volume 90.2 FL (87-102); Mean Platelet Volume 10.8 FL (9.6-12.0); Monocytes % 2.3 % (1.7-12.7); Neutrophils % 92.4 % (38.7-73.9); Platelet Count 144 T/CUMM (130-400); Red Blood Count 4.47 MC/CUMM (3.8-5.5); Red Cell Distribution Width 17.7 % (9.3-17.3); White Blood Count 6.6 T/CUMM (4-12)
[2020-11-16 11:17] LABS: Band Neutrophils 6 % (0-10); Hypochromasia 1+; Lymphocytes 5 % (20-55); Metamyelocytes 1 %; Segmented Neutrophils 87 % (50-85); Total Cells Counted 100
[2020-11-16 11:18] LABS: Microcytosis 1+; Ovalocytes Slight; Platelet Estimate Adequate
[2020-11-16 11:44] LABS: Alanine Aminotransferase 31 U/L (13-56); Albumin 2.9 G/DL (3.4-5.0); Alkaline Phosphatase 70 U/L (45-117); Aspartate Amino Transferase 63 U/L (0-37); Blood Urea Nitrogen 75 MG/DL (7-18); Calcium 7.6 MG/DL (8.5-10.1); Carbon Dioxide 23 MMOL/L (21-32); Estimated Glom Filtration Rate 5 ML/MIN; Glucose 89 MG/DL (74-106); Osmolality,Calculated 286.4 MOS/KG (273-304); Sodium 133 MMOL/L (136-145); Total Protein 6.5 G/DL (6.4-8.2)
[2020-11-16 11:46] LABS: Potassium 6.3 MMOL/L (3.5-5.1)
[2020-11-16 11:56] LABS: Ferritin 2146.4 ng/mL (8-252)
[2020-11-16] MEDS ORDERED: CASIRIVIMAB/IMDEVIMAB 1,200 MG in SODIUM CHLORIDE 0.9% 100 ML IV ONE (12:18)
[2020-11-16] MEDS ORDERED: MECLIZINE 25 MG TABLET PO PRN (12:18)
[2020-11-16] MEDS ORDERED: diphenhydrAMINE 50 MG/1 ML VIAL IV PRN (12:18)
[2020-11-16] MEDS ORDERED: diphenhydrAMINE CAP 50 MG CAPSULE PO PRN (12:18)
[2020-11-16] MEDS: ACETAMINOPHEN 325 MG TABLET PO PRN (12:18)
[2020-11-16] MEDS ORDERED: methylPREDNISolone SOD SUC 125 MG/2 ML VIAL IV PRN (12:18)
[2020-11-16] MEDS ORDERED: METOPROLOL TARTRATE 50 MG TABLET PO SCH (12:30)
[2020-11-16] MEDS: methylPREDNISolone SOD SUC 40 MG/1 ML VIAL IV SCH ×2 (12:46→21:40)
[2020-11-16] MEDS: fentaNYL INJ 1,250 MCG in SODIUM CHLORIDE 0.9% 225 ML IV PRN ×2 (12:52→21:31)
[2020-11-16] MEDS: MIDAZOLAM 100 MG in SODIUM CHLORIDE 0.9% 80 ML IV PRN ×2 (12:58→19:40)
[2020-11-16] MEDS ORDERED: INSULIN REGULAR 10 UNIT, CALCIUM GLUCONATE 1,000 MG in DEXTROSE 10% 250 ML IV ONE (13:52)
[2020-11-16] MEDS ORDERED: cefTRIAXone 1,000 MG in SODIUM CHLORIDE 0.9% 100 ML IV SCH (14:00)
[2020-11-16] MEDS: SODIUM ZIRCONIUM CYCLOSILICATE 10 GM PACK PO SCH (16:15)
[2020-11-16] MEDS: ROCURONIUM 500 MG in SODIUM CHLORIDE 0.9% 500 ML IV PRN (19:20)
[2020-11-16] MEDS: NOREPINEPHRINE 8 MG in SODIUM CHLORIDE 0.9% 242 ML IV PRN (20:55)
[2020-11-16] MEDS: ATORVASTATIN 40 MG TABLET PO SCH (21:40)
[2020-11-16] MEDS: GABAPENTIN 300 MG CAPSULE PO SCH (21:40)
[2020-11-17] MEDS: INSULIN REGULAR 100 UNIT/ML SUBCUT SCH ×4 (00:22→19:24)
[2020-11-17] MEDS: HEPARIN 5,000 UNIT/1 ML VIAL SUBCUT SCH ×2 (00:37→08:52)
[2020-11-17] MEDS: methylPREDNISolone SOD SUC 40 MG/1 ML VIAL IV SCH ×3 (03:30→21:35)
[2020-11-17 03:38] LABS: ABG Base Excess -4.1 MMOL/L (-2.5-2.5); ABG HCO3 22.3 MMOL/L (20-26); ABG Oxygen Saturation 99.4 % (95-100); ABG PCO2 45.9 MM HG (35-48); ABG PH 7.304 (7.35-7.45); ABG PO2 234.1 MM HG (80-95); ABG TCO2 23.7 MMOL/L (23-27); Allen Test Positive; Pt O2 Delivery Device Ventilator
[2020-11-17 03:59] LABS: Basophils % 0.1 % (0.0-0.8); Hematocrit 34.3 VOL% (35.7-47.0); Hemoglobin 10.9 GM/DL (12.0-16.0); Immature Granulocytes Absolute 0.45 #; Lymphocytes # 0.2 10*3/uL (1.4-4.0); Mean Corpuscular HGB Conc 31.8 GM/DL (32-36); Mean Corpuscular Volume 88.6 FL (87-102); Mean Platelet Volume 12.7 FL (9.6-12.0); Neutrophils % 93.9 % (38.7-73.9); Platelet Count 151 T/CUMM (130-400); Red Blood Count 3.87 MC/CUMM (3.8-5.5); Red Cell Distribution Width 17.2 % (9.3-17.3); White Blood Count 15.2 T/CUMM (4-12)
[2020-11-17 04:37] LABS: Calcium 7.7 MG/DL (8.5-10.1); Ferritin 3082.2 ng/mL (8-252); Osmolality,Calculated 288.4 MOS/KG (273-304); Potassium 5.7 MMOL/L (3.5-5.1)
[2020-11-17 05:14] LABS: Anisocytosis 1+; Band Neutrophils 31 % (0-10); Burr Cells 1+; Lymphocytes 2 % (20-55); Metamyelocytes 6 %; Ovalocytes Few; Platelet Estimate Normal; Segmented Neutrophils 59 % (50-85); Total Cells Counted 100
[2020-11-17] MEDS: fentaNYL INJ 1,250 MCG in SODIUM CHLORIDE 0.9% 225 ML IV PRN ×2 (06:29→16:45)
[2020-11-17] MEDS: FAMOTIDINE 20 MG TABLET PO SCH ×2 (08:51→21:50)
[2020-11-17] MEDS: ASCORBIC ACID 500 MG TABLET PO SCH ×2 (08:51→21:50)
[2020-11-17] MEDS: ZINC GLUCONATE 50 MG TABLET PO SCH (08:51)
[2020-11-17] MEDS: AZITHROMYCIN 250 MG TABLET PO SCH (08:51)
[2020-11-17] MEDS: CHOLECALCIFEROL 1,000 UNIT TABLET PO SCH (08:51)
[2020-11-17] MEDS: GABAPENTIN 300 MG CAPSULE PO SCH ×2 (08:51→21:50)
[2020-11-17] MEDS: SERTRALINE 50 MG TABLET PO SCH (08:52)
[2020-11-17] MEDS: SODIUM ZIRCONIUM CYCLOSILICATE 10 GM PACK PO SCH (08:55)
[2020-11-17] MEDS ORDERED: METOPROLOL TARTRATE 25 MG TABLET PO SCH (09:00)
[2020-11-17] MEDS: MIDAZOLAM 100 MG in SODIUM CHLORIDE 0.9% 80 ML IV PRN (10:38)
[2020-11-17] MEDS ORDERED: VANCOMYCIN INJ 750 MG in SODIUM CHLORIDE 0.9% 250 ML IV PRN (12:21)
[2020-11-17] MEDS: HEPARIN DRIP 25,000 UNITS/500 ML PREMIX IV SCH (12:33)
[2020-11-17] MEDS: CEFEPIME 1,000 MG in SODIUM CHLORIDE 0.9% 100 ML IV SCH (13:15)
[2020-11-17] MEDS: metroNIDAZOLE INJ 500 MG/100 ML PREMIX IV SCH ×2 (14:30→21:39)
[2020-11-17] MEDS ORDERED: VANCOMYCIN INJ 2,000 MG in SODIUM CHLORIDE 0.9% 500 ML IV ONE (18:00)
[2020-11-17] MEDS: ATORVASTATIN 40 MG TABLET PO SCH (21:50)
[2020-11-18] MEDS: MIDAZOLAM 100 MG in SODIUM CHLORIDE 0.9% 80 ML IV PRN (00:08)
[2020-11-18] MEDS: INSULIN REGULAR 100 UNIT/ML SUBCUT SCH ×4 (00:57→17:49)
[2020-11-18] MEDS: fentaNYL INJ 1,250 MCG in SODIUM CHLORIDE 0.9% 225 ML IV PRN ×3 (02:00→21:40)
[2020-11-18 03:22] LABS: ABG Base Excess -1.4 MMOL/L (-2.5-2.5); ABG HCO3 23.6 MMOL/L (20-26); ABG Oxygen Saturation 96.1 % (95-100); ABG PCO2 40.9 MM HG (35-48); ABG PH 7.379 (7.35-7.45); ABG PO2 90.7 MM HG (80-95); ABG TCO2 24.9 MMOL/L (23-27); Allen Test Positive; Pt O2 Delivery Device Ventilator
[2020-11-18] MEDS: methylPREDNISolone SOD SUC 40 MG/1 ML VIAL IV SCH ×3 (05:30→21:07)
[2020-11-18] MEDS: metroNIDAZOLE INJ 500 MG/100 ML PREMIX IV SCH (05:34)
[2020-11-18 05:38] LABS: Hematocrit 31.4 VOL% (35.7-47.0); Hemoglobin 10.1 GM/DL (12.0-16.0); Immature Granulocytes % 1.1 %; Lymphocytes # 0.2 10*3/uL (1.4-4.0); Lymphocytes % 1.8 % (21.3-54.2); Mean Corpuscular HGB Conc 32.2 GM/DL (32-36); Mean Corpuscular Volume 87.2 FL (87-102); Mean Platelet Volume 13.5 FL (9.6-12.0); Monocytes % 2.2 % (1.7-12.7); Neutrophils % 94.9 % (38.7-73.9); Platelet Count 124 T/CUMM (130-400); Red Cell Distribution Width 17.3 % (9.3-17.3)
[2020-11-18 06:01] LABS: Alanine Aminotransferase 23 U/L (13-56); Albumin 2.2 G/DL (3.4-5.0); Alkaline Phosphatase 70 U/L (45-117); Aspartate Amino Transferase 61 U/L (0-37); Bilirubin,Total < 0.39 MG/DL (0.20-1.00); Blood Urea Nitrogen 52 MG/DL (7-18); Calcium 7.9 MG/DL (8.5-10.1); Carbon Dioxide 22 MMOL/L (21-32); Estimated Glom Filtration Rate 8 ML/MIN; Ferritin 3681.1 ng/mL (8-252); Glucose 97 MG/DL (74-106); Osmolality,Calculated 281.2 MOS/KG (273-304); Potassium 5.4 MMOL/L (3.5-5.1); Sodium 134 MMOL/L (136-145); Total Protein 5.8 G/DL (6.4-8.2)
[2020-11-18 06:13] LABS: White Blood Count 9.4 T/CUMM (4-12)
[2020-11-18 07:36] LABS: Band Neutrophils 7 % (0-10); Lymphocytes 2 % (20-55); Metamyelocytes 1 %; Segmented Neutrophils 89 % (50-85); Total Cells Counted 100
[2020-11-18 07:38] LABS: Burr Cells 1+; Ovalocytes 1+; Platelet Estimate Adequate
[2020-11-18 07:39] LABS: Schistocytes Few
[2020-11-18] MEDS: GABAPENTIN 50 MG/ML 30 ML/BOTTLE PO SCH ×2 (08:41→21:20)
[2020-11-18] MEDS: SODIUM ZIRCONIUM CYCLOSILICATE 10 GM PACK PO SCH (08:41)
[2020-11-18] MEDS: ASCORBIC ACID 500 MG TABLET PO SCH ×2 (08:42→21:08)
[2020-11-18] MEDS: ZINC GLUCONATE 50 MG TABLET PO SCH (08:42)
[2020-11-18] MEDS: AZITHROMYCIN 250 MG TABLET PO SCH (08:42)
[2020-11-18] MEDS: FAMOTIDINE 20 MG TABLET PO SCH ×2 (08:42→21:08)
[2020-11-18] MEDS: SERTRALINE 50 MG TABLET PO SCH (08:42)
[2020-11-18] MEDS: CHOLECALCIFEROL 1,000 UNIT TABLET PO SCH (08:42)
[2020-11-18] MEDS: CEFEPIME 1,000 MG in SODIUM CHLORIDE 0.9% 100 ML IV SCH (12:18)
[2020-11-18] MEDS: cefTRIAXone 1,000 MG in SODIUM CHLORIDE 0.9% 100 ML IV SCH (13:07)
[2020-11-18] MEDS: HEPARIN DRIP 25,000 UNITS/500 ML PREMIX IV SCH (18:12)
[2020-11-18] MEDS: VANCOMYCIN 50 MG/ML 60 ML/BOTTLE PO SCH (18:17)
[2020-11-18] MEDS: ATORVASTATIN 40 MG TABLET PO SCH (21:08)
[2020-11-19] MEDS: INSULIN REGULAR 100 UNIT/ML SUBCUT SCH ×4 (00:34→19:23)
[2020-11-19] MEDS: VANCOMYCIN 50 MG/ML 60 ML/BOTTLE PO SCH ×4 (00:35→18:24)
[2020-11-19 03:23] LABS: ABG Base Excess -4.8 MMOL/L (-2.5-2.5); ABG HCO3 20.4 MMOL/L (20-26); ABG Oxygen Saturation 94.9 % (95-100); ABG PCO2 34.1 MM HG (35-48); ABG PH 7.371 (7.35-7.45); ABG PO2 81.8 MM HG (80-95); ABG TCO2 17.9 MMOL/L (23-27); Allen Test Positive; Pt O2 Delivery Device Ventilator
[2020-11-19 04:38] LABS: Basophils % 0.1 % (0.0-0.8); Hematocrit 26.7 VOL% (35.7-47.0); Hemoglobin 8.8 GM/DL (12.0-16.0); Immature Granulocytes % 1.8 %; Immature Granulocytes Absolute 0.19 #; Lymphocytes # 0.3 10*3/uL (1.4-4.0); Lymphocytes % 2.4 % (21.3-54.2); Mean Platelet Volume 12.7 FL (9.6-12.0); Neutrophils % 92.7 % (38.7-73.9); Platelet Count 171 T/CUMM (130-400); Red Blood Count 3.07 MC/CUMM (3.8-5.5); Red Cell Distribution Width 17.5 % (9.3-17.3); White Blood Count 10.4 T/CUMM (4-12)
[2020-11-19] MEDS: methylPREDNISolone SOD SUC 40 MG/1 ML VIAL IV SCH ×3 (04:59→22:06)
[2020-11-19 05:07] LABS: Band Neutrophils 8 % (0-10); Hypochromasia 1+; Lymphocytes 2 % (20-55); Metamyelocytes 2 %; Microcytosis 1+; Segmented Neutrophils 87 % (50-85); Total Cells Counted 100
[2020-11-19 05:08] LABS: Anisocytosis 1+; Ovalocytes Few; Platelet Estimate Adequate; Tear Drop Cells Slight
[2020-11-19 05:26] LABS: Bilirubin,Total 0.6 MG/DL (0.20-1.00); Calcium 7.4 MG/DL (8.5-10.1); Osmolality,Calculated 292.2 MOS/KG (273-304); Total Protein 5.4 G/DL (6.4-8.2)
[2020-11-19] MEDS: NOREPINEPHRINE 8 MG in SODIUM CHLORIDE 0.9% 242 ML IV PRN ×2 (06:14→22:03)
[2020-11-19] MEDS: fentaNYL INJ 1,250 MCG in SODIUM CHLORIDE 0.9% 225 ML IV PRN (06:17)
[2020-11-19 06:53] VITALS: BP 159/89
[2020-11-19] MEDS: SODIUM ZIRCONIUM CYCLOSILICATE 10 GM PACK PO SCH (10:14)
[2020-11-19] MEDS: SERTRALINE 50 MG TABLET PO SCH (10:15)
[2020-11-19] MEDS: FAMOTIDINE 20 MG TABLET PO SCH ×2 (10:15→22:06)
[2020-11-19] MEDS: CHOLECALCIFEROL 1,000 UNIT TABLET PO SCH (10:15)
[2020-11-19] MEDS: ZINC GLUCONATE 50 MG TABLET PO SCH (10:15)
[2020-11-19] MEDS: AZITHROMYCIN 250 MG TABLET PO SCH (10:15)
[2020-11-19] MEDS: ASCORBIC ACID 500 MG TABLET PO SCH ×2 (10:15→22:06)
[2020-11-19] MEDS: cefTRIAXone 1,000 MG in SODIUM CHLORIDE 0.9% 100 ML IV SCH (14:00)
[2020-11-19] MEDS: GABAPENTIN 50 MG/ML 30 ML/BOTTLE PO SCH ×2 (17:33→22:06)
[2020-11-19] MEDS: HEPARIN DRIP 25,000 UNITS/500 ML PREMIX IV SCH (17:35)
[2020-11-19] MEDS: fentaNYL INJ 5,000 MCG in SODIUM CHLORIDE 0.9% 150 ML IV PRN (18:30)
[2020-11-19] MEDS: ROCURONIUM 500 MG in SODIUM CHLORIDE 0.9% 500 ML IV PRN (19:32)
[2020-11-19] MEDS: ACETAMINOPHEN 325 MG TABLET PO PRN (19:46)
[2020-11-19] MEDS ORDERED: IBUPROFEN 800 MG TABLET PO ONE (21:15)
[2020-11-19 21:45] LABS: ABG Base Excess -3.3 MMOL/L (-2.5-2.5); ABG HCO3 21.6 MMOL/L (20-26); ABG Oxygen Saturation 94.7 % (95-100); ABG PCO2 50.3 MM HG (35-48); ABG PH 7.282 (7.35-7.45); ABG PO2 87.7 MM HG (80-95)
[2020-11-19] MEDS: SODIUM CHLORIDE 0.9% 1,000 ML IV SCH (22:03)
[2020-11-19] MEDS: ATORVASTATIN 40 MG TABLET PO SCH (22:06)
[2020-11-19] MEDS ORDERED: SODIUM BICARBONATE 50 MEQ/50 ML VIAL IV ONE (23:48)
[2020-11-20] MEDS: VANCOMYCIN 50 MG/ML 60 ML/BOTTLE PO SCH ×4 (00:22→18:37)
[2020-11-20] MEDS: INSULIN REGULAR 100 UNIT/ML SUBCUT SCH ×3 (00:23→18:36)
[2020-11-20] MEDS: MIDAZOLAM 100 MG in SODIUM CHLORIDE 0.9% 80 ML IV PRN ×2 (03:45→18:40)
[2020-11-20 04:06] LABS: ABG Base Excess -3.4 MMOL/L (-2.5-2.5); ABG HCO3 21.5 MMOL/L (20-26); ABG Oxygen Saturation 94.4 % (95-100); ABG PCO2 49.3 MM HG (35-48); ABG PH 7.285 (7.35-7.45); ABG PO2 83.7 MM HG (80-95); ABG TCO2 21.8 MMOL/L (23-27)
[2020-11-20] MEDS: methylPREDNISolone SOD SUC 40 MG/1 ML VIAL IV SCH ×3 (04:36→21:25)
[2020-11-20 04:39] LABS: Basophils % 0.1 % (0.0-0.8); Hemoglobin 9.1 GM/DL (12.0-16.0); Immature Granulocytes % 6.9 %; Lymphocytes # 0.3 10*3/uL (1.4-4.0); Lymphocytes % 1.3 % (21.3-54.2); Mean Corpuscular HGB Conc 33.7 GM/DL (32-36); Mean Corpuscular Volume 89.4 FL (87-102); Mean Platelet Volume 11.1 FL (9.6-12.0); Monocytes % 1.8 % (1.7-12.7); NRBC # 0.03 10*3/uL; Neutrophils % 89.9 % (38.7-73.9); Platelet Count 173 T/CUMM (130-400); Red Blood Count 3.02 MC/CUMM (3.8-5.5); Red Cell Distribution Width 17.7 % (9.3-17.3); White Blood Count 21.9 T/CUMM (4-12)
[2020-11-20 05:07] LABS: Band Neutrophils 10 % (0-10); Lymphocytes 4 % (20-55); Platelet Estimate Normal; Segmented Neutrophils 84 % (50-85); Total Cells Counted 100
[2020-11-20 05:51] LABS: Albumin 1.8 G/DL (3.4-5.0); Bilirubin,Total 0.5 MG/DL (0.20-1.00); Calcium 6.9 MG/DL (8.5-10.1); Potassium 3.8 MMOL/L (3.5-5.1); Total Protein 5.5 G/DL (6.4-8.2)
[2020-11-20] MEDS: ROCURONIUM 500 MG in SODIUM CHLORIDE 0.9% 500 ML IV PRN ×2 (06:36→19:18)
[2020-11-20] MEDS: GABAPENTIN 50 MG/ML 30 ML/BOTTLE PO SCH ×2 (09:50→21:27)
[2020-11-20] MEDS: SERTRALINE 50 MG TABLET PO SCH (09:51)
[2020-11-20] MEDS: ZINC GLUCONATE 50 MG TABLET PO SCH (09:51)
[2020-11-20] MEDS: SODIUM ZIRCONIUM CYCLOSILICATE 10 GM PACK PO SCH (09:51)
[2020-11-20] MEDS: ASCORBIC ACID 500 MG TABLET PO SCH ×2 (09:51→21:26)
[2020-11-20] MEDS: CHOLECALCIFEROL 1,000 UNIT TABLET PO SCH (09:51)
[2020-11-20] MEDS: FAMOTIDINE 20 MG TABLET PO SCH ×2 (09:51→21:26)
[2020-11-20] MEDS ORDERED: HEPARIN 10,000 UNIT/10 ML VIAL IV SCH (11:45)
[2020-11-20 13:17] LABS: Basophils # 0.1 10*3/uL (0.0-0.2); Basophils % 0.3 % (0.0-0.8); Eosinophils % 0.1 % (0.00-10.9); Hemoglobin 10.4 GM/DL (12.0-16.0); Immature Granulocytes % 6.6 %; Immature Granulocytes Absolute 1.49 #; Lymphocytes # 0.4 10*3/uL (1.4-4.0); Lymphocytes % 1.6 % (21.3-54.2); Mean Corpuscular HGB Conc 33.5 GM/DL (32-36); Mean Corpuscular Volume 87.3 FL (87-102); Mean Platelet Volume 11.2 FL (9.6-12.0); Monocytes % 0.9 % (1.7-12.7); NRBC # 0.03 10*3/uL; Neutrophils % 90.5 % (38.7-73.9); Platelet Count 145 T/CUMM (130-400); Red Blood Count 3.55 MC/CUMM (3.8-5.5); White Blood Count 22.5 T/CUMM (4-12)
[2020-11-20] MEDS: fentaNYL INJ 5,000 MCG in SODIUM CHLORIDE 0.9% 150 ML IV PRN (13:40)
[2020-11-20 13:44] LABS: PT Patient Result 11.4 SECS (10.5-12.0)
[2020-11-20 13:48] LABS: Partial Thromboplastin Time > 211.8 SECS (23.9-33.8)
[2020-11-20 14:03] LABS: Lymphocytes 5 % (20-55); Nucleated Red Blood Cells 1 (0-5); Segmented Neutrophils 94 % (50-85); Total Cells Counted 100
[2020-11-20 14:05] LABS: Anisocytosis 1+; Hypochromasia 1+; Macrocytosis 1+; Microcytosis 1+; Platelet Estimate Adequate
[2020-11-20] MEDS: NOREPINEPHRINE 8 MG in SODIUM CHLORIDE 0.9% 242 ML IV PRN (18:00)
[2020-11-20] MEDS: HEPARIN DRIP 25,000 UNITS/500 ML PREMIX IV SCH (18:36)
[2020-11-20] MEDS: cefTRIAXone 1,000 MG in SODIUM CHLORIDE 0.9% 100 ML IV SCH (19:26)
[2020-11-20] MEDS: ATORVASTATIN 40 MG TABLET PO SCH (21:26)
[2020-11-21] MEDS: INSULIN REGULAR 100 UNIT/ML SUBCUT SCH ×4 (00:16→23:56)
[2020-11-21] MEDS: VANCOMYCIN 50 MG/ML 60 ML/BOTTLE PO SCH ×5 (00:18→23:56)
[2020-11-21] MEDS: ACETAMINOPHEN 325 MG TABLET PO PRN ×3 (00:19→21:26)
[2020-11-21 04:15] LABS: ABG Base Excess -3.8 MMOL/L (-2.5-2.5); ABG HCO3 21.2 MMOL/L (20-26); ABG Oxygen Saturation 97.3 % (95-100); ABG PCO2 51.3 MM HG (35-48); ABG PH 7.265 (7.35-7.45); ABG TCO2 22.2 MMOL/L (23-27)
[2020-11-21] MEDS: methylPREDNISolone SOD SUC 40 MG/1 ML VIAL IV SCH ×3 (05:02→21:25)
[2020-11-21 06:09] LABS: Basophils % 0.1 % (0.0-0.8); Eosinophils # 0.1 10*3/uL (0.0-0.87); Eosinophils % 0.5 % (0.00-10.9); Hematocrit 25.2 VOL% (35.7-47.0); Immature Granulocytes % 10.7 %; Immature Granulocytes Absolute 1.44 #; Lymphocytes # 0.3 10*3/uL (1.4-4.0); Mean Corpuscular HGB Conc 32.5 GM/DL (32-36); Mean Platelet Volume 12.9 FL (9.6-12.0); Monocytes % 1.1 % (1.7-12.7); NRBC # 0.02 10*3/uL; Neutrophils % 85.6 % (38.7-73.9); Platelet Count 127 T/CUMM (130-400); Red Cell Distribution Width 17.8 % (9.3-17.3)
[2020-11-21 06:12] LABS: Hemoglobin 8.2 GM/DL (12.0-16.0); White Blood Count 13.4 T/CUMM (4-12)
[2020-11-21 06:16] LABS: Calcium 7.5 MG/DL (8.5-10.1); Osmolality,Calculated 290.4 MOS/KG (273-304); Potassium 3.5 MMOL/L (3.5-5.1)
[2020-11-21 06:38] LABS: Band Neutrophils 11 % (0-10); Lymphocytes 3 % (20-55); Metamyelocytes 2 %; Myelocytes 1 %; Segmented Neutrophils 83 % (50-85); Total Cells Counted 100
[2020-11-21 06:39] LABS: Hypochromasia 1+; Microcytosis 1+; Ovalocytes Slight; Platelet Estimate Adequate; Tear Drop Cells Slight
[2020-11-21] MEDS: ROCURONIUM 500 MG in SODIUM CHLORIDE 0.9% 500 ML IV PRN ×2 (07:00→18:00)
[2020-11-21] MEDS: fentaNYL INJ 5,000 MCG in SODIUM CHLORIDE 0.9% 150 ML IV PRN (07:40)
[2020-11-21] MEDS: SODIUM ZIRCONIUM CYCLOSILICATE 10 GM PACK PO SCH (09:33)
[2020-11-21] MEDS: CHOLECALCIFEROL 1,000 UNIT TABLET PO SCH (09:33)
[2020-11-21] MEDS: ZINC GLUCONATE 50 MG TABLET PO SCH (09:34)
[2020-11-21] MEDS: SERTRALINE 50 MG TABLET PO SCH (09:34)
[2020-11-21] MEDS: ASCORBIC ACID 500 MG TABLET PO SCH ×2 (09:34→21:26)
[2020-11-21] MEDS: FAMOTIDINE 20 MG TABLET PO SCH ×2 (09:34→21:26)
[2020-11-21] MEDS: GABAPENTIN 50 MG/ML 30 ML/BOTTLE PO SCH ×2 (09:40→21:29)
[2020-11-21] MEDS: cefTRIAXone 1,000 MG in SODIUM CHLORIDE 0.9% 100 ML IV SCH (13:15)
[2020-11-21] MEDS ORDERED: IBUPROFEN 100 MG/5 ML UDCUP PO PRN (13:58)
[2020-11-21] MEDS: NOREPINEPHRINE 8 MG in SODIUM CHLORIDE 0.9% 242 ML IV PRN (19:30)
[2020-11-21] MEDS: SODIUM CHLORIDE 0.9% 1,000 ML IV SCH ×2 (20:08→21:27)
[2020-11-21] MEDS: MIDAZOLAM 100 MG in SODIUM CHLORIDE 0.9% 80 ML IV PRN (20:16)
[2020-11-21] MEDS ORDERED: NOREPINEPHRINE 8 MG in SODIUM CHLORIDE 0.9% 242 ML IV PRN (20:41)
[2020-11-21] MEDS ORDERED: NOREPINEPHRINE 16 MG in SODIUM CHLORIDE 0.9% 234 ML IV PRN (21:00)
[2020-11-21] MEDS: ATORVASTATIN 40 MG TABLET PO SCH (21:26)
[2020-11-22] MEDS ORDERED: PHENYLEPHRINE DRIP 40 MG/250 ML PREMIX IV ONE (00:47)
[2020-11-22] MEDS ORDERED: ATROPINE 1 MG/10 ML SYRINGE IV ONE (00:48)
[2020-11-22] MEDS ORDERED: EPINEPHrine 1 MG/10 ML SYRINGE IV ONE ×2 (00:50→01:10)
[2020-11-22] MEDS ORDERED: SODIUM BICARBONATE 50 MEQ/50 ML VIAL IV ONE ×2 (00:52→01:07)
[2020-11-22] MEDS ORDERED: PHENYLEPHRINE DRIP 40 MG/250 ML PREMIX IV PRN (00:52)
[2020-11-22] MEDS ORDERED: CALCIUM CHLORIDE 1,000 MG/10 ML SYRINGE IV ONE ×2 (01:07→01:10)
[2020-11-22] MEDS ORDERED: SODIUM BICARBONATE 50 MEQ/50 ML SYRINGE IV ONE (01:10)
== END 2020-11-22 01:11 | disposition expired | DRG 207 ==
LOC: EDUNIT# → N.ED 07:00 → N.EDINP 08:53 → SUATTDRO 08:53 → N.ICU 11-18 09:23
PROVIDERS: ADMIT Family Medicine; ATTEND Internal Medicine